=== PATIENT | male | born 1960 | race African-American/Black ===

== ENCOUNTER 2017-01-03 14:31 | Inpatient (IN) | payer OTHER ==
[2017-01-03 15:14] VITALS: BMI 32.5
--- NOTE | 2017-01-03 18:36 | HP ---
CIWA Score - CIWA Score Nausea/Vomitin-Mild Nausea/No Vomiting Muscle Tremors: 4-Moderate,w/Arms Extend Anxiety: 4-Mod. Anxious/Guarded Agitation: 4-Moderately Restless Paroxysmal Sweats: 1-Minimal Palms Moist Orientation: 0-Oriented Tacttile Disturbances: 0-None Auditory Disturbances: 0-None Visual Disturbances: 0-None Headache: 0-None Present CIWA-Ar Total Score: 14 Admission ROS BHS - HPI Chief Complaint: WITHDRAWAL SX Allergies/Adverse Reactions: Allergies Allergy/AdvReac Type Severity Reaction Status Date / Time No Known Allergies Allergy Verified 01/03/17 18:00 History of Present Illness: 56 YEARS OLD MALE WITH LONG HISTORY OF ALCOHOL COCAINE NICOTINE DEPENDENCE HAS HIV AND DEPRESSION IS ADMITTED TO REHAB Exam Limitations: No Limitations - Ebola screening Have you traveled outside of the country in the last 21 days: No Have you had contact with anyone from an Ebola affected area: No Have you been sick,other than usual withdrawal symptoms: No Do you have a fever: No - Review of Systems Constitutional: Chills, Changes in sleep, Weight Stable EENT: reports: No Symptoms Reported Respiratory: reports: No Symptoms reported Cardiac: reports: No Symptoms Reported GI: reports: Nausea, Poor Fluid Intake, Abdominal cramping : reports: No Symptoms Reported Integumentary: reports: No Symptoms Reported Neuro: reports: Tremors Endocrine: reports: No Symptoms Reported Hematology: reports: No Symptoms Reported Psychiatric: reports: Judgement Intact, Orientated x3, Depressed Other Systems: Reviewed and Negative Patient History - Patient Medical History Hx Anemia: No Hx Asthma: No Hx Chronic Obstructive Pulmonary Disease (COPD): No Hx Cancer: No Hx Cardiac Disorders: No Hx Congestive Heart Failure: No Hx Hypertension: No Hx Hypercholesterolemia: No HX Cerebrovascular Accident: No Hx Seizures: No Hx Diabetes: No Hx Gastrointestinal Disorders: No Hx Liver Disease: No Hx Genitourinary Disorders: No Hx Sexually Transmitted Disorders: No Hx Renal Disease (ESRD): No Hx Thyroid Disease: No Hx Human Immunodeficiency Virus (HIV): Yes (2004) Hx Depression: Yes Hx Suicide Attempt: No Hx Bipolar Disorder: No Hx Schizophrenia: No - Patient Surgical History Past Surgical History: No Hx Neurologic Surgery: No Hx Cataract Extraction: No Hx Cardiac Surgery: No Hx Lung Surgery: No Hx Breast Surgery: No Hx Breast Biopsy: No Hx Abdominal Surgery: No Hx Appendectomy: No Hx Cholecystectomy: No Hx Genitourinary Surgery: No Hx Orthopedic Surgery: No - PPD History Previous Implant?: Yes Documented Results: Negative w/o proof Implanted On Prior R Admission?: No PPD to be Administered?: Yes - Smoking Cessation Smoking history: Current every day smoker Have you smoked in the past 12 months: Yes Aproximately how many cigarettes per day: 10 Cigars Per Day: 0 Hx Chewing Tobacco Use: No Initiated information on smoking cessation: Yes 'Breaking Loose' booklet given: 01/03/17 - Substance & Tx. History Hx Alcohol Use: Yes Hx Substance Use: Yes Substance Use Type: Alcohol, Cocaine Hx Substance Use Treatment: No - Substances Abused Alcohol Route: Oral Frequency: Daily Amount used: LIQOUR- 2 PINTS, BEER- 2 SIX PACK Age of first use: 12 Date of Last Use: 01/03/17 Family Disease History - Family Disease History Family History: Denies Admission Physical Exam BHS - Vital Signs Vital Signs: Vital Signs - 24 hr 01/03/17 15:12 Temperature 98.0 F Pulse Rate 97 H Respiratory 18 Rate Blood Pressure 149/88 - Physical General Appearance: Yes: Appropriately Dressed, Mild Distress, Obese, Tremorous , Irritable, Sweating, Anxious HEENTM: Yes: Hearing grossly Normal, Normal ENT Inspection, Normocephalic, Normal Voice Respiratory: Yes: Chest Non-Tender, Lungs Clear, Normal Breath Sounds, No Respiratory Distress, No Accessory Muscle Use Neck: Yes: Supple, Trachea in good position Breast: Yes: Breasts Symetrical Cardiology: Yes: Regular Rhythm, S1, S2, Tachycardia Abdominal: Yes: Non Tender, Soft Genitourinary: Yes: Within Normal Limits Musculoskeletal: Yes: full range of Motion, Gait Steady Extremities: Yes: Normal Inspection, Normal Range of Motion, Non-Tender, Tremors Neurological: Yes: Fully Oriented, Alert, Motor Strength 5/5, Normal Response, Depressed Affect Integumentary: Yes: Normal Color, Warm Lymphatic: Yes: Within Normal Limits - Diagnostic (1) Alcohol dependence with uncomplicated withdrawal Current Visit: Yes Status: Acute (2) Cocaine dependence, uncomplicated Current Visit: Yes Status: Chronic (3) HIV (human immunodeficiency virus infection) Current Visit: Yes Status: Chronic Comment: 2005 (4) Nicotine dependence Current Visit: Yes Status: Acute Qualifiers: Nicotine product type: cigarettes Substance use status: in withdrawal Qualified Code(s): F17.213 - Nicotine dependence, cigarettes, with withdrawal (5) Depression (emotion) Current Visit: Yes Status: Suspected Qualifiers: Depression Type: dysthymia Qualified Code(s): F34.1 - Dysthymic disorder Cleared for Admission [facility] - Detox or Rehab [facility] Level of Care: Medically Managed Detox Regimen/Protocol: Librium S Breath Alcohol Content Breath Alcohol Content: 0 Urine Drug Screen - Results Drug Screen Negative: No Urine Drug Screen Results: SHAGUFTA-Cocaine
[2017-01-03] MEDS ORDERED: P-EPHED 60MG/TRIPROLIDI 2.5MG TABLET PO PRN (18:40)
[2017-01-03] MEDS ORDERED: guaiFENesin/D-METHORPHAN HB 10 ML UNIT-DOSE CUPS PO PRN (18:40)
[2017-01-03] MEDS ORDERED: hydrOXYzine PAMOATE 50 MG CAPSULE (FP) PO PRN (18:40)
[2017-01-03] MEDS ORDERED: MENTHOL/PHENOL 1 EACH UD MM PRN (18:40)
[2017-01-03] MEDS ORDERED: NICOTINE POLACRILEX 2 MG GUM BC PRN (18:40)
[2017-01-03] MEDS ORDERED: MAG HYDROX/AL HYDROX/SIMETH 30 ML UNIT-DOSE CUP PO PRN (18:40)
[2017-01-03] MEDS ORDERED: IBUPROFEN 400 MG TABLET (FP) PO PRN (18:40)
[2017-01-03] MEDS ORDERED: LOPERAMIDE HCL 2 MG CAPSULE PO PRN (18:40)
[2017-01-03] MEDS ORDERED: MAGNESIUM CITRATE 300 ML BOTTLE PO PRN (18:40)
[2017-01-03] MEDS ORDERED: chlordiazePOXIDE HCL 25 MG CAPSULE PO PRN (18:40)
[2017-01-03] MEDS ORDERED: MAGNESIUM HYDROX 2400MG/30ML ORAL SUSPENSION 30 ML CUP PO PRN (18:40)
[2017-01-03] MEDS ORDERED: diphenhydrAMINE HCL 50 MG CAPSULE PO PRN (18:40)
[2017-01-03] MEDS ORDERED: ACETAMINOPHEN 325 MG TABLET (FP) PO PRN (18:40)
[2017-01-03] MEDS: THIAMINE HCL 100 MG TABLET (FP) PO SCH (23:26)
[2017-01-03] MEDS: chlordiazePOXIDE HCL 25 MG CAPSULE PO SCH (23:26)
[2017-01-04] MEDS: chlordiazePOXIDE HCL 25 MG CAPSULE PO SCH ×4 (05:57→22:08)
[2017-01-04 07:55] LABS: URINE APPEARANCE CLEAR; URINE BILIRUBIN NEGATIVE (NEGATIVE); URINE BLOOD NEGATIVE (NEGATIVE); URINE COLOR YELLOW; URINE GLUCOSE (UA) NEGATIVE (NEGATIVE); URINE KETONE NEGATIVE (NEGATIVE); URINE LEUK ESTERASE NEGATIVE (NEGATIVE); URINE NITRITE NEGATIVE (NEGATIVE); URINE PROTEIN NEGATIVE (NEGATIVE); URINE UROBILINOGEN NEGATIVE E.U./dl (0.2-1.0)
--- NOTE | 2017-01-04 09:05 | PN ---
S CIWA - CIWA Score Nausea/Vomitin Muscle Tremors: 3 Anxiety: 3 Agitation: 2 Paroxysmal Sweats: 1-Minimal Palms Moist Orientation: 0-Oriented Tacttile Disturbances: 1-Very Mild Itch/Numbness Auditory Disturbances: 1-Very Mild Visual Disturbances: 1-Very Mild Sensitivity Headache: 2-Mild CIWA-Ar Total Score: 17 BHS Progress Note (SOAP) Subjective: ALERT,IRRITABLE,ANXIOUS,INTERRUPTED SLEEP,TREMOR Objective: 01/04/17 09:04 Vital Signs Temperature 97.7 F 01/04/17 06:05 Pulse Rate 62 01/04/17 06:05 Respiratory Rate 18 01/04/17 06:05 Blood Pressure 141/73 01/04/17 06:05 O2 Sat by Pulse Oximetry (%) EKG NSR WITH SINUS ARRHYTHMIA Laboratory Last Values Urine Color Yellow 01/03/17 20:30 Urine Appearance Clear 01/03/17 20:30 Urine pH 6.0 (5.0-8.0) 01/03/17 20:30 Urine Protein Negative (NEGATIVE) 01/03/17 20:30 Urine Glucose (UA) Negative (NEGATIVE) 01/03/17 20:30 Urine Ketones Negative (NEGATIVE) 01/03/17 20:30 Urine Blood Negative (NEGATIVE) 01/03/17 20:30 Urine Nitrite Negative (NEGATIVE) 01/03/17 20:30 Urine Bilirubin Negative (NEGATIVE) 01/03/17 20:30 Urine Urobilinogen Negative E.U./dl (0.2-1.0) 01/03/17 20:30 Ur Leukocyte Esterase Negative (NEGATIVE) 01/03/17 20:30 LABS PENDING Assessment: 01/04/17 09:05 WITHDRAWAL SYMPTOM Plan: CONTINUE DETOX
[2017-01-04 09:43] LABS: MCH 30.9 pg (25.7-33.7); MCHC 32.9 g/dl (32.0-35.9); MEAN CELL VOLUME 93.7 fl (80-96); MEAN PLT VOLUME 10.6 fl (7.5-11.1); PLATELET COUNT 128 K/MM3 (134-434); RDW 13.5 % (11.9-15.9); WHITE BLOOD COUNT 7.2 K/mm3 (4.0-10.0)
[2017-01-04] MEDS: PRENATAL VITAMINS W/ FOLIC ACID TABLET (FP) PO SCH (10:35)
[2017-01-04] MEDS: CITALOPRAM HYDROBROMIDE 20 MG TABLET (FP) PO SCH (10:35)
[2017-01-04] MEDS: NICOTINE 14 MG/24 HOURS TOPICAL PATCH TD SCH (10:35)
[2017-01-04 10:44] LABS: ALBUMIN 3.8 g/dl (3.4-5.0); ALK PHOS 120 U/L (45-117); ANION GAP 8 (8-16); BILIRUBIN,TOTAL 0.7 mg/dL (0.2-1.0); CALCIUM 9.2 mg/dL (8.5-10.1); CO2 29 mmol/L (21-32); CREATININE 1.1 mg/dL (0.7-1.3); GLUCOSE,RANDOM 91 mg/dL (74-106); SGOT/AST 52 U/L (15-37); SGPT/ALT 57 U/L (12-78); TOT PROT 7.7 g/dl (6.4-8.2)
--- NOTE | 2017-01-04 11:05 | CONSULT ---
[facility] Psychiatric Consult - Data Date of interview: 01/04/17 Admission source: [facility] Identifying data: This is 56 years old male with psychiatric hospitalization history intoxicated with;. Alcohol, Nicotine, Cocaine Substance Abuse History: Urine Drug Screen Results: SHAGUFTA-Cocaine. - Smoking Cessation. Smoking history: Current every day smoker. Have you smoked in the past 12 months: Yes. Aproximately how many cigarettes per day: 10. Cigars Per Day: 0. Hx Chewing Tobacco Use: No. Initiated information on smoking cessation : Yes. 'Breaking Loose' booklet given: 01/03/17. - Substance & Tx. History. Hx Alcohol Use: Yes. Hx Substance Use: Yes. Substance Use Type: Alcohol, Cocaine. Hx Substance Use Treatment: No. - Substances Abused. Alcohol. Route: Oral. Frequency: Daily. Amount used: LIQOUR- 2 PINTS, BEER- 2 SIX PACK. Age of first use: 12. Date of Last Use: 01/03/17 Medical History: HIV+ Psychiatric History: Patient rerports history of depression, reports most recent psychiatric admission on: 2017 at [facility]. Reports currently taking: Celexa 20mg poqd Physical/Sexual Abuse/Trauma History: Denies Additional Comment: Urine Drug Screen Results: SHAGUFTA-Cocaine. Celexa 20mg poqd Mental Status Exam - Mental Status Exam Alert and Oriented to: Person Cognitive Function: Fair Patient Appearance: Unkempt Mood: Sad Affect: Flat Patient Behavior: Sedated Speech Pattern: Delayed Voice Loudness: Mildly Soft/Quiet Thought Process: Circumstantial Thought Disorder: Being Controlled Hallucinations: Denies Suicidal Ideation: Denies Homicidal Ideation: Denies Insight/Judgement: Fair Sleep: Difficulty falling asleep Appetite: Weight loss Muscle strength/Tone: Mild Hypotonicity Gait/Station: Shuffling Additional Comments: Celexa 20mg poqd Psychiatric Findings - Problem List ([place] 1, 2,3) (1) Alcohol dependence with uncomplicated withdrawal Current Visit: Yes Status: Acute (2) Nicotine dependence Current Visit: Yes Status: Acute Qualifiers: Nicotine product type: cigarettes Substance use status: in withdrawal Qualified Code(s): F17.213 - Nicotine dependence, cigarettes, with withdrawal (3) Cocaine dependence, uncomplicated Current Visit: Yes Status: Chronic (4) Drug-induced mood disorder Current Visit: Yes Status: Acute - Initial Treatment Plan Initial Treatment Plan: Celexa 20mg poqd
[2017-01-04] MEDS: THIAMINE HCL 100 MG TABLET (FP) PO SCH (22:08)
[2017-01-05] MEDS: chlordiazePOXIDE HCL 25 MG CAPSULE PO SCH ×3 (05:28→17:55)
--- NOTE | 2017-01-05 09:42 | PN ---
S CIWA - CIWA Score Nausea/Vomitin Muscle Tremors: 3 Anxiety: 3 Agitation: 3 Paroxysmal Sweats: 1-Minimal Palms Moist Orientation: 0-Oriented Tacttile Disturbances: 1-Very Mild Itch/Numbness Auditory Disturbances: 1-Very Mild Visual Disturbances: 1-Very Mild Sensitivity Headache: 2-Mild CIWA-Ar Total Score: 18 S Progress Note (SOAP) Subjective: ALERT,IRRITABLE,ANXIOUS,INTERRUPTED SLEEP,TREMOR Objective: 01/05/17 09:41 Vital Signs Temperature 97.7 F 01/05/17 09:24 Pulse Rate 75 01/05/17 09:24 Respiratory Rate 16 01/05/17 09:24 Blood Pressure 129/87 01/05/17 09:24 O2 Sat by Pulse Oximetry (%) Laboratory Last Values WBC 7.2 K/mm3 (4.0-10.0) 01/04/17 06:00 RBC 4.34 M/mm3 (4.00-5.60) 01/04/17 06:00 Hgb 13.4 GM/dL (11.7-16.9) 01/04/17 06:00 Hct 40.7 % (35.4-49) 01/04/17 06:00 MCV 93.7 fl (80-96) 01/04/17 06:00 MCHC 32.9 g/dl (32.0-35.9) 01/04/17 06:00 RDW 13.5 % (11.9-15.9) 01/04/17 06:00 Plt Count 128 K/MM3 (134-434) L 01/04/17 06:00 MPV 10.6 fl (7.5-11.1) 01/04/17 06:00 Sodium 141 mmol/L (136-145) 01/04/17 06:00 Potassium 3.9 mmol/L (3.5-5.1) 01/04/17 06:00 Chloride 104 mmol/L (98-107) 01/04/17 06:00 Carbon Dioxide 29 mmol/L (21-32) 01/04/17 06:00 Anion Gap 8 (8-16) 01/04/17 06:00 BUN 11 mg/dL (7-18) 01/04/17 06:00 Creatinine 1.1 mg/dL (0.7-1.3) 01/04/17 06:00 Creat Clearance w eGFR > 60 (>60) 01/04/17 06:00 Random Glucose 91 mg/dL (74-106) 01/04/17 06:00 Calcium 9.2 mg/dL (8.5-10.1) 01/04/17 06:00 Total Bilirubin 0.7 mg/dL (0.2-1.0) 01/04/17 06:00 AST 52 U/L (15-37) H 01/04/17 06:00 ALT 57 U/L (12-78) 01/04/17 06:00 Alkaline Phosphatase 120 U/L (45-117) H 01/04/17 06:00 Total Protein 7.7 g/dl (6.4-8.2) 01/04/17 06:00 Albumin 3.8 g/dl (3.4-5.0) 01/04/17 06:00 Urine Color Yellow 01/03/17 20:30 Urine Appearance Clear 01/03/17 20:30 Urine pH 6.0 (5.0-8.0) 01/03/17 20:30 Ur Specific [place] 1.020 (1.005-1.025) 01/03/17 20:30 Urine Protein Negative (NEGATIVE) 01/03/17 20:30 Urine Glucose (UA) Negative (NEGATIVE) 01/03/17 20:30 Urine Ketones Negative (NEGATIVE) 01/03/17 20:30 Urine Blood Negative (NEGATIVE) 01/03/17 20:30 Urine Nitrite Negative (NEGATIVE) 01/03/17 20:30 Urine Bilirubin Negative (NEGATIVE) 01/03/17 20:30 Urine Urobilinogen Negative E.U./dl (0.2-1.0) 01/03/17 20:30 Ur Leukocyte Esterase Negative (NEGATIVE) 01/03/17 20:30 RPR Titer Nonreactive (NONREACTIVE) 01/04/17 06:00 Assessment: 01/05/17 09:41 WITHDRAWAL SYMPTOM Plan: CONTINUE DETOX
[2017-01-05] MEDS: PRENATAL VITAMINS W/ FOLIC ACID TABLET (FP) PO SCH (10:05)
[2017-01-05] MEDS: CITALOPRAM HYDROBROMIDE 20 MG TABLET (FP) PO SCH (10:05)
[2017-01-05] MEDS: NICOTINE 14 MG/24 HOURS TOPICAL PATCH TD SCH (10:06)
--- NOTE | 2017-01-05 15:51 | EKG ---
Test Reason : Blood Pressure : / mmHG Vent. Rate : 076 BPM Atrial Rate : 076 BPM P-R Int : 142 ms QRS Dur : 092 ms QT Int : 380 ms P-R-T Axes : 011 032 027 degrees QTc Int : 427 ms NORMAL SINUS RHYTHM WITH SINUS ARRHYTHMIA NORMAL ECG NO PREVIOUS ECGS AVAILABLE Confirmed by CHRISTIAN LONG MD ([id number]) on 01/05/2017 3:50:49 PM Referred By: Confirmed By:CHRISTIAN LONG MD
[2017-01-05] MEDS: THIAMINE HCL 100 MG TABLET (FP) PO SCH (22:30)
[2017-01-05] MEDS: chlordiazePOXIDE 5 MG CAPSULE PO SCH (22:30)
[2017-01-06] MEDS: chlordiazePOXIDE 5 MG CAPSULE PO SCH ×3 (05:51→17:10)
--- NOTE | 2017-01-06 09:17 | PN ---
S Progress Note (SOAP) Subjective: ALERT,IRRITABLE,ANXIOUS,INTERRUPTED SLEEP, Objective: 01/06/17 09:16 Vital Signs Temperature 97.9 F 01/06/17 06:00 Pulse Rate 63 01/06/17 06:00 Respiratory Rate 20 01/06/17 06:00 Blood Pressure 143/81 01/06/17 06:00 O2 Sat by Pulse Oximetry (%) Assessment: 01/06/17 09:16 WITHDRAWAL SYMPTOM Plan: CONTINUE DETOX,DISCHARGE IN AM
[2017-01-06] MEDS: CITALOPRAM HYDROBROMIDE 20 MG TABLET (FP) PO SCH (10:37)
[2017-01-06] MEDS: PRENATAL VITAMINS W/ FOLIC ACID TABLET (FP) PO SCH (10:37)
[2017-01-06] MEDS: NICOTINE 14 MG/24 HOURS TOPICAL PATCH TD SCH (10:37)
[2017-01-06] MEDS: chlordiazePOXIDE HCL 10 MG CAPSULE PO SCH (22:29)
[2017-01-06] MEDS: THIAMINE HCL 100 MG TABLET (FP) PO SCH (22:29)
[2017-01-07] MEDS: chlordiazePOXIDE HCL 10 MG CAPSULE PO SCH (05:57)
--- NOTE | 2017-01-07 08:47 | DS ---
[facility] Detox Discharge Summary Admission Date: 01/03/17 Discharge Date: 01/07/17 - History Present History: Alcohol Dependence, Sedative Dependence Additional Comments: FOLLOW UP WITH AFTER CARE PROGRAM ARRANGEMENT Pertinent Past History: HIV NICOTINE DEPENDENCE - Physical Exam Results Vital Signs: Vital Signs Temperature 97.4 F L 01/07/17 06:00 Pulse Rate 65 01/07/17 06:00 Respiratory Rate 18 01/07/17 06:00 Blood Pressure 132/61 01/07/17 06:00 O2 Sat by Pulse Oximetry (%) Pertinent Admission Physical Exam Findings: WITHDRAWAL SYMPTOM - Treatment Hospital Course: Detox Protocol Followed, Detoxed Safely, Responded well, Discharged Condition Good, Rehab Referral Accepted Patient has Accepted a Rehab Referral to: [facility] - Medication Discharge Medications: Ambulatory Orders Citalopram Hydrobromide [Celexa -] 20 mg PO DAILY 01/03/17 Elviteg/Jadyn/Emtric/Tenofo Ala [Genvoya Tablet] 1 each PO DAILY 01/03/17 - AMA Did Patient Leave Against Medical Advice: No
[2017-01-07 10:10] VITALS: BP 145/76; PULSE 59; TEMP 97.3
== END 2017-01-07 09:45 | disposition home or self-care (01) | DRG 774 ==
LOC: YASAS 14:31 → Y6N 18:04
PROVIDERS: ADMIT Internal Medicine; ATTEND Internal Medicine
PROC: HZ2ZZZZ Detoxification Services for Substance Abuse Treatment (ICD-10-PCS; principal; 2017-01-07)
DX: F10.230 Alcohol dependence with withdrawal, uncomplicated (principal); F14.20 Cocaine dependence, uncomplicated; F17.210 Nicotine dependence, cigarettes, uncomplicated; F19.24 Other psychoactive substance dependence with psychoactive substance-induced mood disorder; Z21 Asymptomatic human immunodeficiency virus [HIV] infection status
CPT/HCPCS: 36415; 80053; 81003; 85027; 86593; 93005; 93010

== ENCOUNTER 2017-05-31 15:19 | Inpatient (IN) | payer OTHER ==
[2017-05-31 18:10] VITALS: BMI 34.0
--- NOTE | 2017-05-31 20:28 | HP ---
CIWA Score - CIWA Score Nausea/Vomitin-Mild Nausea/No Vomiting Muscle Tremors: 3 Anxiety: 4-Mod. Anxious/Guarded Agitation: 3 Paroxysmal Sweats: 1-Minimal Palms Moist Orientation: 1-Uncertain about Date Tacttile Disturbances: 0-None Auditory Disturbances: 0-None Visual Disturbances: 0-None Headache: 1-Very Mild CIWA-Ar Total Score: 14 Admission ROS BHS - HPI Chief Complaint: withdrawal sx Allergies/Adverse Reactions: Allergies Allergy/AdvReac Type Severity Reaction Status Date / Time No Known Allergies Allergy Verified 01/03/17 18:00 History of Present Illness: 56 years old male with long history of alcohol nicotine cocaine dependence has hiv and depression is admitted to detox Exam Limitations: No Limitations - Ebola screening Have you traveled outside of the country in the last 21 days: No (N) Have you had contact with anyone from an Ebola affected area: No Have you been sick,other than usual withdrawal symptoms: No Do you have a fever: No - Review of Systems Constitutional: Changes in sleep, Weight Stable EENT: reports: No Symptoms Reported Respiratory: reports: Productive cough (white) Cardiac: reports: No Symptoms Reported GI: reports: Poor Fluid Intake, Abdominal cramping : reports: No Symptoms Reported Musculoskeletal: reports: No Symptoms Reported Integumentary: reports: No Symptoms Reported Neuro: reports: Tremors Endocrine: reports: No Symptoms Reported Hematology: reports: No Symptoms Reported Psychiatric: reports: Judgement Intact, Anxious, Depressed Other Systems: Reviewed and Negative Patient History - Patient Medical History Hx Anemia: No Hx Asthma: No Hx Chronic Obstructive Pulmonary Disease (COPD): No Hx Cancer: No Hx Cardiac Disorders: No Hx Congestive Heart Failure: No Hx Hypertension: No Hx Hypercholesterolemia: No Hx Pacemaker: No HX Cerebrovascular Accident: No Hx Seizures: No Hx Dementia: No Hx Diabetes: No Hx Gastrointestinal Disorders: No Hx Liver Disease: No Hx Genitourinary Disorders: No Hx Sexually Transmitted Disorders: No Hx Renal Disease (ESRD): No Hx Thyroid Disease: No Hx Human Immunodeficiency Virus (HIV): Yes (2004) Hx Hepatitis C: No Hx Depression: Yes Hx Suicide Attempt: No Hx Bipolar Disorder: No Hx Schizophrenia: No - Patient Surgical History Past Surgical History: No Hx Neurologic Surgery: No Hx Cataract Extraction: No Hx Cardiac Surgery: No Hx Lung Surgery: No Hx Breast Surgery: No Hx Breast Biopsy: No Hx Abdominal Surgery: No Hx Appendectomy: No Hx Cholecystectomy: No Hx Genitourinary Surgery: No Hx Orthopedic Surgery: No - PPD History Previous Implant?: Yes Documented Results: Negative w/proof Implanted On Prior [facility] Admission?: Yes Date: 01/05/17 PPD to be Administered?: No - Smoking Cessation Smoking history: Current every day smoker Have you smoked in the past 12 months: Yes Aproximately how many cigarettes per day: 10 Cigars Per Day: 0 Hx Chewing Tobacco Use: No Initiated information on smoking cessation: Yes 'Breaking Loose' booklet given: 05/31/17 - Substance & Tx. History Hx Alcohol Use: Yes Hx Substance Use: Yes Substance Use Type: Alcohol, Cocaine Hx Substance Use Treatment: Yes (12/2016 [facility] - Substances Abused Alcohol Route: Oral Frequency: Daily Amount used: pint vodka Age of first use: 15 Date of Last Use: 05/31/17 Family Disease History - Family Disease History Family Disease History: Other: Mother () Admission Physical Exam S - Vital Signs Vital Signs: Vital Signs - 24 hr 05/31/17 18:03 Temperature 96.8 F L Pulse Rate 120 H Respiratory 18 Rate Blood Pressure 166/77 - Physical General Appearance: Yes: Appropriately Dressed, Mild Distress, Obese, Tremorous , Irritable, Sweating, Anxious HEENTM: Yes: Hearing grossly Normal, Normal ENT Inspection, Normocephalic, Normal Voice Respiratory: Yes: Chest Non-Tender, No Respiratory Distress, No Accessory Muscle Use, Hyperresonant Neck: Yes: Supple, Trachea in good position Breast: Yes: Breasts Symetrical Cardiology: Yes: Regular Rhythm, S1, S2, Tachycardia (cocaine) Abdominal: Yes: Normal Bowel Sounds, Non Tender, Soft Genitourinary: Yes: Within Normal Limits Back: Yes: Normal Inspection Musculoskeletal: Yes: full range of Motion, Gait Steady Extremities: Yes: Normal Inspection, Normal Range of Motion, Non-Tender, Tremors Neurological: Yes: Alert, Motor Strength 5/5, Normal Response, Depressed Affect Integumentary: Yes: Warm Lymphatic: Yes: Within Normal Limits - Diagnostic (1) Alcohol dependence with uncomplicated withdrawal Current Visit: Yes Status: Acute (2) Nicotine dependence Current Visit: Yes Status: Acute Qualifiers: Nicotine product type: cigarettes Substance use status: in withdrawal Qualified Code(s): F17.213 - Nicotine dependence, cigarettes, with withdrawal (3) Cocaine dependence, uncomplicated Current Visit: Yes Status: Chronic (4) HIV (human immunodeficiency virus infection) Current Visit: Yes Status: Chronic Comment: 2004 patient dose not have his medication upon admission with (5) Depression (emotion) Current Visit: Yes Status: Suspected Qualifiers: Depression Type: dysthymia Qualified Code(s): F34.1 - Dysthymic disorder Cleared for Admission [facility] - Detox or Rehab [facility] Level of Care: Medically Managed Detox Regimen/Protocol: Librium [facility] Breath Alcohol Content Breath Alcohol Content: 0 Urine Drug Screen - Results Drug Screen Negative: No Urine Drug Screen Results: SHAGUFTA-Cocaine
[2017-05-31] MEDS ORDERED: MENTHOL/PHENOL 1 EACH UD MM PRN (20:29)
[2017-05-31] MEDS ORDERED: P-EPHED 60MG/TRIPROLIDI 2.5MG TABLET PO PRN (20:29)
[2017-05-31] MEDS ORDERED: NICOTINE POLACRILEX 2 MG GUM BC PRN (20:29)
[2017-05-31] MEDS ORDERED: guaiFENesin/D-METHORPHAN HB 10 ML UNIT-DOSE CUPS PO PRN (20:29)
[2017-05-31] MEDS ORDERED: ACETAMINOPHEN 325 MG TABLET (FP) PO PRN (20:29)
[2017-05-31] MEDS ORDERED: MAGNESIUM HYDROX 2400MG/30ML ORAL SUSPENSION 30 ML CUP PO PRN (20:29)
[2017-05-31] MEDS ORDERED: MAGNESIUM CITRATE 300 ML BOTTLE PO PRN (20:29)
[2017-05-31] MEDS ORDERED: IBUPROFEN 400 MG TABLET (FP) PO PRN (20:29)
[2017-05-31] MEDS ORDERED: LOPERAMIDE HCL 2 MG CAPSULE PO PRN (20:29)
[2017-05-31] MEDS ORDERED: MAG HYDROX/AL HYDROX/SIMETH 30 ML UNIT-DOSE CUP PO PRN (20:29)
[2017-05-31] MEDS ORDERED: chlordiazePOXIDE HCL 25 MG CAPSULE PO PRN (20:29)
[2017-05-31] MEDS: cloNIDine HCL 0.1 MG TABLET PO PRN (23:23)
[2017-05-31] MEDS: THIAMINE HCL 100 MG TABLET (FP) PO SCH (23:24)
[2017-05-31] MEDS: chlordiazePOXIDE HCL 25 MG CAPSULE PO SCH (23:24)
[2017-06-01] MEDS: chlordiazePOXIDE HCL 25 MG CAPSULE PO SCH ×4 (06:00→23:27)
[2017-06-01 10:22] LABS: MCH 29.3 pg (25.7-33.7); MCHC 33.2 g/dl (32.0-35.9); MEAN CELL VOLUME 88.1 fl (80-96); MEAN PLT VOLUME 9.4 fl (7.5-11.1); PLATELET COUNT 116 K/MM3 (134-434); RDW 12.4 % (11.9-15.9); WHITE BLOOD COUNT 7.1 K/mm3 (4.0-10.0)
[2017-06-01] MEDS: PRENATAL VITAMINS W/ FOLIC ACID TABLET (FP) PO SCH (10:23)
[2017-06-01] MEDS: NICOTINE 14 MG/24 HOURS TOPICAL PATCH TD SCH (10:23)
[2017-06-01] MEDS: cloNIDine HCL 0.1 MG TABLET PO PRN (10:23)
[2017-06-01 11:09] LABS: ALBUMIN 3.3 g/dl (3.4-5.0); ALK PHOS 89 U/L (45-117); ANION GAP 13 (8-16); BILIRUBIN,TOTAL 0.6 mg/dL (0.2-1.0); CALCIUM 8.5 mg/dL (8.5-10.1); CO2 23 mmol/L (21-32); CREATININE 0.9 mg/dL (0.7-1.3); GLUCOSE,RANDOM 102 mg/dL (74-106); SGOT/AST 49 U/L (15-37); SGPT/ALT 75 U/L (12-78); TOT PROT 6.7 g/dl (6.4-8.2)
--- NOTE | 2017-06-01 12:28 | PN ---
S CIWA - CIWA Score Nausea/Vomitin Muscle Tremors: 3 Anxiety: 3 Agitation: 3 Paroxysmal Sweats: 1-Minimal Palms Moist Orientation: 0-Oriented Tacttile Disturbances: 1-Very Mild Itch/Numbness Auditory Disturbances: 1-Very Mild Visual Disturbances: 0-None Headache: 2-Mild CIWA-Ar Total Score: 17 BHS Progress Note (SOAP) Subjective: ALERT,IRRITABLE,ANXIOUS,INTERRUPTED SLEEP,TREMOR, Objective: 06/01/17 12:26 Vital Signs Temperature 98.1 F 06/01/17 10:42 Pulse Rate 89 06/01/17 10:42 Respiratory Rate 16 06/01/17 10:42 Blood Pressure 116/70 06/01/17 10:42 O2 Sat by Pulse Oximetry (%) EKGSINUS TACHYCARDIA 104/MIN NO CHEST PAIN,NO SOB,NO DIZZINESS 06/01/17 12:27 Laboratory Last Values WBC 7.1 K/mm3 (4.0-10.0) 06/01/17 08:15 RBC 4.43 M/mm3 (4.00-5.60) 06/01/17 08:15 Hgb 13.0 GM/dL (11.7-16.9) 06/01/17 08:15 Hct 39.1 % (35.4-49) 06/01/17 08:15 MCV 88.1 fl (80-96) 06/01/17 08:15 MCH 29.3 pg (25.7-33.7) 06/01/17 08:15 MCHC 33.2 g/dl (32.0-35.9) 06/01/17 08:15 RDW 12.4 % (11.9-15.9) 06/01/17 08:15 Plt Count 116 K/MM3 (134-434) L 06/01/17 08:15 MPV 9.4 fl (7.5-11.1) D 06/01/17 08:15 Sodium 140 mmol/L (136-145) 06/01/17 08:15 Potassium 3.8 mmol/L (3.5-5.1) 06/01/17 08:15 Chloride 104 mmol/L (98-107) 06/01/17 08:15 Carbon Dioxide 23 mmol/L (21-32) D 06/01/17 08:15 Anion Gap 13 (8-16) 06/01/17 08:15 BUN 12 mg/dL (7-18) 06/01/17 08:15 Creatinine 0.9 mg/dL (0.7-1.3) 06/01/17 08:15 Creat Clearance w eGFR > 60 (>60) 06/01/17 08:15 Random Glucose 102 mg/dL (74-106) 06/01/17 08:15 Calcium 8.5 mg/dL (8.5-10.1) 06/01/17 08:15 Total Bilirubin 0.6 mg/dL (0.2-1.0) 06/01/17 08:15 AST 49 U/L (15-37) H 06/01/17 08:15 ALT 75 U/L (12-78) D 06/01/17 08:15 Alkaline Phosphatase 89 U/L (45-117) D 06/01/17 08:15 Total Protein 6.7 g/dl (6.4-8.2) 06/01/17 08:15 Albumin 3.3 g/dl (3.4-5.0) L 06/01/17 08:15 RPR Titer Nonreactive (NONREACTIVE) 06/01/17 07:00 Assessment: 06/01/17 12:27 WITHDRAWAL SYMPTOM Plan: CONTINUE DETOX
--- NOTE | 2017-06-01 12:39 | EKG ---
Test Reason : Blood Pressure : / mmHG Vent. Rate : 104 BPM Atrial Rate : 104 BPM P-R Int : 142 ms QRS Dur : 090 ms QT Int : 370 ms P-R-T Axes : 005 022 022 degrees QTc Int : 486 ms SINUS TACHYCARDIA OTHERWISE NORMAL ECG WHEN COMPARED WITH ECG OF 03-JAN-2017 19:44, QT HAS LENGTHENED Confirmed by CHRISTIAN LONG MD ([id number]) on 06/01/2017 12:38:49 PM Referred By: Confirmed By:CHRISTIAN LONG MD
[2017-06-01] MEDS: THIAMINE HCL 100 MG TABLET (FP) PO SCH (23:27)
[2017-06-02] MEDS: chlordiazePOXIDE HCL 25 MG CAPSULE PO SCH ×3 (06:09→17:48)
--- NOTE | 2017-06-02 10:18 | PN ---
S CIWA - CIWA Score Nausea/Vomitin Muscle Tremors: 2 Anxiety: 2 Agitation: 1-Slight > Activity Paroxysmal Sweats: 3 Orientation: 0-Oriented Tacttile Disturbances: 1-Very Mild Itch/Numbness Auditory Disturbances: 0-None Visual Disturbances: 0-None Headache: 0-None Present CIWA-Ar Total Score: 11 BHS Progress Note (SOAP) Subjective: sweats otherwise feeling better Objective: 06/02/17 10:16 Vital Signs Temperature 97 F L 06/02/17 06:06 Pulse Rate 73 06/02/17 06:06 Respiratory Rate 18 06/02/17 06:06 Blood Pressure 150/77 06/02/17 06:06 O2 Sat by Pulse Oximetry (%) Laboratory Tests 06/01/17 06/01/17 06/01/17 07:00 08:15 08:15 WBC 7.1 RBC 4.43 Hgb 13.0 Hct 39.1 MCV 88.1 MCH 29.3 MCHC 33.2 RDW 12.4 Plt Count 116 L MPV 9.4 D Sodium 140 Potassium 3.8 Chloride 104 Carbon Dioxide 23 D Anion Gap 13 BUN 12 Creatinine 0.9 Creat Clearance w eGFR > 60 Random Glucose 102 Calcium 8.5 Total Bilirubin 0.6 AST 49 H ALT 75 D Alkaline Phosphatase 89 D Total Protein 6.7 Albumin 3.3 L RPR Titer Nonreactive pt aox3 in nad ambulating Assessment: 06/02/17 10:17 withdrawal sx's Plan: cont. detox increase fluids
[2017-06-02] MEDS: NICOTINE 14 MG/24 HOURS TOPICAL PATCH TD SCH (11:17)
[2017-06-02] MEDS: PRENATAL VITAMINS W/ FOLIC ACID TABLET (FP) PO SCH (11:17)
[2017-06-02 14:29] LABS: URINE APPEARANCE CLEAR; URINE BILIRUBIN NEGATIVE (NEGATIVE); URINE BLOOD NEGATIVE (NEGATIVE); URINE COLOR LTYELLOW; URINE GLUCOSE (UA) NEGATIVE (NEGATIVE); URINE KETONE NEGATIVE (NEGATIVE); URINE NITRITE NEGATIVE (NEGATIVE); URINE PROTEIN NEGATIVE (NEGATIVE); URINE UROBILINOGEN NEGATIVE mg/dL (0.2-1.0)
[2017-06-02 19:50] LABS: URINE LEUK ESTERASE Negative (NEGATIVE)
[2017-06-02] MEDS: chlordiazePOXIDE 5 MG CAPSULE PO SCH (22:30)
[2017-06-02] MEDS: THIAMINE HCL 100 MG TABLET (FP) PO SCH (22:32)
[2017-06-03] MEDS: chlordiazePOXIDE 5 MG CAPSULE PO SCH ×3 (05:12→17:51)
[2017-06-03] MEDS: NICOTINE 14 MG/24 HOURS TOPICAL PATCH TD SCH (10:24)
[2017-06-03] MEDS: PRENATAL VITAMINS W/ FOLIC ACID TABLET (FP) PO SCH (10:24)
--- NOTE | 2017-06-03 15:41 | PN ---
BHS Progress Note (SOAP) Subjective: Sweating,interrupted sleep,restless Objective: 06/03/17 15:40 Vital Signs - 8 hr 06/03/17 06/03/17 10:00 14:15 Temperature 97.7 F 97.7 F Pulse Rate 102 H 101 H Respiratory 18 18 Rate Blood Pressure 133/79 108/87 Laboratory Tests 06/01/17 06/01/17 06/01/17 07:00 08:15 08:15 WBC 7.1 RBC 4.43 Hgb 13.0 Hct 39.1 MCV 88.1 MCH 29.3 MCHC 33.2 RDW 12.4 Plt Count 116 L MPV 9.4 D Sodium 140 Potassium 3.8 Chloride 104 Carbon Dioxide 23 D Anion Gap 13 BUN 12 Creatinine 0.9 Creat Clearance w eGFR > 60 Random Glucose 102 Calcium 8.5 Total Bilirubin 0.6 AST 49 H ALT 75 D Alkaline Phosphatase 89 D Total Protein 6.7 Albumin 3.3 L Urine Color Urine Appearance Urine pH Ur Specific [place] Urine Protein Urine Glucose (UA) Urine Ketones Urine Blood Urine Nitrite Urine Bilirubin Urine Urobilinogen Ur Leukocyte Esterase RPR Titer Nonreactive 06/02/17 10:00 WBC RBC Hgb Hct MCV MCH MCHC RDW Plt Count MPV Sodium Potassium Chloride Carbon Dioxide Anion Gap BUN Creatinine Creat Clearance w eGFR Random Glucose Calcium Total Bilirubin AST ALT Alkaline Phosphatase Total Protein Albumin Urine Color Ltyellow Urine Appearance Clear Urine pH 7.0 Ur Specific [place] 1.009 Urine Protein Negative Urine Glucose (UA) Negative Urine Ketones Negative Urine Blood Negative Urine Nitrite Negative Urine Bilirubin Negative Urine Urobilinogen Negative Ur Leukocyte Esterase Negative RPR Titer labs noted Assessment: 06/03/17 15:40 Withdrawal sx. Plan: Continue detox
[2017-06-04] MEDS: chlordiazePOXIDE HCL 10 MG CAPSULE PO SCH ×2 (00:04→07:28)
[2017-06-04] MEDS: THIAMINE HCL 100 MG TABLET (FP) PO SCH (00:05)
[2017-06-04 06:33] VITALS: BP 128/85; PULSE 80; TEMP 97.2
--- NOTE | 2017-06-04 14:06 | DS ---
[facility] Detox Discharge Summary Admission Date: 05/31/17 Discharge Date: 06/04/17 - History Present History: Alcohol Dependence, Cocaine Dependence Pertinent Past History: HIV infection - Physical Exam Results Vital Signs: Vital Signs Temperature 97.2 F L 06/04/17 06:00 Pulse Rate 80 06/04/17 06:00 Respiratory Rate 18 06/04/17 06:00 Blood Pressure 128/85 06/04/17 06:00 O2 Sat by Pulse Oximetry (%) Pertinent Admission Physical Exam Findings: Withdrawal sx. Laboratory Last Values WBC 7.1 K/mm3 (4.0-10.0) 06/01/17 08:15 RBC 4.43 M/mm3 (4.00-5.60) 06/01/17 08:15 Hgb 13.0 GM/dL (11.7-16.9) 06/01/17 08:15 Hct 39.1 % (35.4-49) 06/01/17 08:15 MCV 88.1 fl (80-96) 06/01/17 08:15 MCH 29.3 pg (25.7-33.7) 06/01/17 08:15 MCHC 33.2 g/dl (32.0-35.9) 06/01/17 08:15 RDW 12.4 % (11.9-15.9) 06/01/17 08:15 Plt Count 116 K/MM3 (134-434) L 06/01/17 08:15 MPV 9.4 fl (7.5-11.1) D 06/01/17 08:15 Sodium 140 mmol/L (136-145) 06/01/17 08:15 Potassium 3.8 mmol/L (3.5-5.1) 06/01/17 08:15 Chloride 104 mmol/L (98-107) 06/01/17 08:15 Carbon Dioxide 23 mmol/L (21-32) D 06/01/17 08:15 Anion Gap 13 (8-16) 06/01/17 08:15 BUN 12 mg/dL (7-18) 06/01/17 08:15 Creatinine 0.9 mg/dL (0.7-1.3) 06/01/17 08:15 Creat Clearance w eGFR > 60 (>60) 06/01/17 08:15 Random Glucose 102 mg/dL (74-106) 06/01/17 08:15 Calcium 8.5 mg/dL (8.5-10.1) 06/01/17 08:15 Total Bilirubin 0.6 mg/dL (0.2-1.0) 06/01/17 08:15 AST 49 U/L (15-37) H 06/01/17 08:15 ALT 75 U/L (12-78) D 06/01/17 08:15 Alkaline Phosphatase 89 U/L (45-117) D 06/01/17 08:15 Total Protein 6.7 g/dl (6.4-8.2) 06/01/17 08:15 Albumin 3.3 g/dl (3.4-5.0) L 06/01/17 08:15 Urine Color Ltyellow 06/02/17 10:00 Urine Appearance Clear 06/02/17 10:00 Urine pH 7.0 (5.0-8.0) 06/02/17 10:00 Ur Specific [place] 1.009 (1.001-1.035) 06/02/17 10:00 Urine Protein Negative (NEGATIVE) 06/02/17 10:00 Urine Glucose (UA) Negative (NEGATIVE) 06/02/17 10:00 Urine Ketones Negative (NEGATIVE) 06/02/17 10:00 Urine Blood Negative (NEGATIVE) 06/02/17 10:00 Urine Nitrite Negative (NEGATIVE) 06/02/17 10:00 Urine Bilirubin Negative (NEGATIVE) 06/02/17 10:00 Urine Urobilinogen Negative mg/dL (0.2-1.0) 06/02/17 10:00 Ur Leukocyte Esterase Negative (NEGATIVE) 06/02/17 10:00 RPR Titer Nonreactive (NONREACTIVE) 06/01/17 07:00 labs noted - Treatment Hospital Course: Detox Protocol Followed, Detoxed Safely, Responded well, Discharged Condition Good, Rehab Referral Accepted Patient has Accepted a Rehab Referral to: [facility] in [place] - Medication Discharge Medications: Ambulatory Orders Elviteg/Cob/Emtri/Tenof Alafen [Genvoya (Non-Formulary)] 1 each PO DAILY Citalopram Hydrobromide [Celexa -] 30 mg PO DAILY 05/31/17 - Diagnosis (1) Alcohol dependence with uncomplicated withdrawal Status: Acute (2) Cocaine dependence, uncomplicated Status: Chronic (3) Drug-induced mood disorder Status: Acute (4) Nicotine dependence Status: Acute Qualifiers: Nicotine product type: cigarettes Substance use status: in withdrawal Qualified Code(s): F17.213 - Nicotine dependence, cigarettes, with withdrawal (5) HIV (human immunodeficiency virus infection) Status: Chronic - AMA Did Patient Leave Against Medical Advice: No
== END 2017-06-04 09:04 | disposition home or self-care (01) | DRG 774 ==
LOC: YASAS 15:19 → Y6N 22:48
PROVIDERS: ADMIT Internal Medicine; ATTEND Internal Medicine
PROC: HZ2ZZZZ Detoxification Services for Substance Abuse Treatment (ICD-10-PCS; principal; 2017-05-31)
DX: F10.230 Alcohol dependence with withdrawal, uncomplicated (principal); F14.20 Cocaine dependence, uncomplicated; F17.213 Nicotine dependence, cigarettes, with withdrawal; F19.24 Other psychoactive substance dependence with psychoactive substance-induced mood disorder; F34.1 Dysthymic disorder; Z21 Asymptomatic human immunodeficiency virus [HIV] infection status
CPT/HCPCS: 36415; 80053; 81003; 85027; 86593; 93005; 93010

== ENCOUNTER 2017-11-07 11:19 | Inpatient (IN) | payer OTHER ==
[2017-11-07 11:48] VITALS: BMI 34.2
--- NOTE | 2017-11-07 14:10 | HP ---
CIWA Score - CIWA Score Nausea/Vomitin Muscle Tremors: 3 Anxiety: 3 Agitation: 3 Paroxysmal Sweats: 2 Orientation: 0-Oriented Tacttile Disturbances: 2-Mild Itch/Numbness/Burn Auditory Disturbances: 2-Mild Harshness/Frighten Visual Disturbances: 2-Mild Sensitivity Headache: 2-Mild CIWA-Ar Total Score: 22 Admission ROS BHS - HPI Chief Complaint: i need help to stop drinking alcohol and cocaine Allergies/Adverse Reactions: Allergies Allergy/AdvReac Type Severity Reaction Status Date / Time No Known Allergies Allergy Verified 11/07/17 13:33 History of Present Illness: this 56 years old male with alcohol and cocaine dependence,seeking detox, withdrawal symptom,last detox 05/31/17 to 06/04/17 weight loss Exam Limitations: No Limitations - Ebola screening Have you traveled outside of the country in the last 21 days: No Have you had contact with anyone from an Ebola affected area: No Have you been sick,other than usual withdrawal symptoms: No Do you have a fever: No - Review of Systems Constitutional: Chills, Diaphoresis, Loss of Appetite, Malaise, Night Sweats, Changes in sleep, Weakness, Unintentional Wgt. Loss EENT: reports: Nose Congestion Respiratory: reports: No Symptoms reported Cardiac: reports: No Symptoms Reported GI: reports: Diarrhea, Nausea, Vomiting, Abdominal cramping : reports: No Symptoms Reported Musculoskeletal: reports: Back Pain, Muscle Pain Integumentary: reports: Dryness Endocrine: reports: No Symptoms Reported Hematology: reports: No Symptoms Reported Psychiatric: reports: No Sypmtoms Reported, Judgement Intact, Mood/Affect Appropiate, Orientated x3, Anxious, Depressed Patient History - Patient Medical History Hx Anemia: No Hx Asthma: No Hx Chronic Obstructive Pulmonary Disease (COPD): No Hx Cancer: No Hx Cardiac Disorders: No Hx Congestive Heart Failure: No Hx Hypertension: No Hx Hypercholesterolemia: No Hx Pacemaker: No HX Cerebrovascular Accident: No Hx Seizures: No Hx Dementia: No Hx Diabetes: No Hx Gastrointestinal Disorders: No Hx Liver Disease: No Hx Genitourinary Disorders: No Hx Sexually Transmitted Disorders: Yes (HIV) Hx Renal Disease (ESRD): No Hx Thyroid Disease: No Hx Human Immunodeficiency Virus (HIV): Yes (2004) Hx Hepatitis C: No Hx Depression: Yes Hx Suicide Attempt: No Hx Bipolar Disorder: No Hx Schizophrenia: No Other Medical History: no suicidal,no homicidal - Patient Surgical History Past Surgical History: No Hx Neurologic Surgery: No Hx Cataract Extraction: No Hx Cardiac Surgery: No Hx Lung Surgery: No Hx Breast Surgery: No Hx Breast Biopsy: No Hx Abdominal Surgery: No Hx Appendectomy: No Hx Cholecystectomy: No Hx Genitourinary Surgery: No Hx Section: No Hx Orthopedic Surgery: No Anesthesia Reaction: No - PPD History Previous Implant?: Yes Documented Results: Negative w/proof Implanted On Prior [facility] Admission?: Yes Date: 01/05/17 Results: 0MM PPD to be Administered?: No - Smoking Cessation Smoking history: Current every day smoker Have you smoked in the past 12 months: Yes Aproximately how many cigarettes per day: 10 Cigars Per Day: 0 Hx Chewing Tobacco Use: No Initiated information on smoking cessation: Yes 'Breaking Loose' booklet given: 11/07/17 - Substance & Tx. History Hx Alcohol Use: Yes Hx Substance Use: Yes Substance Use Type: Alcohol, Cocaine Hx Substance Use Treatment: Yes ([facility] 05/31/17 to 06/04/17) - Substances Abused Cocaine Frequency: 1-2 times per week Amount used: $30 Age of first use: 27 Date of Last Use: 11/05/17 etoh Route: Oral Frequency: Daily Amount used: 3-6pk Beer 16oz , 1 pint-Jennifer Age of first use: 15 Date of Last Use: 11/07/17 Family Disease History - Family Disease History Family Disease History: [place]: Mother (,brain tumor), Other: Mother Admission Physical Exam [facility] - Vital Signs Vital Signs: Vital Signs - 24 hr 11/07/17 11:46 Temperature 96.6 F L Pulse Rate 92 H Respiratory 19 Rate Blood Pressure 128/75 - Physical General Appearance: Yes: Moderate Distress, Tremorous, Irritable, Sweating, Anxious HEENTM: Yes: Normal ENT Inspection, [place], Pharynx Normal Respiratory: Yes: Lungs Clear, Normal Breath Sounds, No Respiratory Distress Neck: Yes: Within Normal Limits, Supple, Trachea in good position Breast: Yes: Within Normal Limits Cardiology: Yes: Within Normal Limits, Regular Rhythm, Regular Rate, S1, S2 Abdominal: Yes: Within Normal Limits, Normal Bowel Sounds, Non Tender, Flat, Soft Genitourinary: Yes: Within Normal Limits Back: Yes: Within Normal Limits, Normal Inspection, Muscle Spasm Musculoskeletal: Yes: Within Normal Limits, Back pain, Muscle Pain Extremities: Yes: Within Normal Limits, Normal Range of Motion, Tremors Neurological: Yes: machine set up II-XII NML intact, Fully Oriented, Alert, Motor Strength 5/5 Integumentary: Yes: Within Normal Limits, Dry Lymphatic: Yes: Within Normal Limits - Diagnostic (1) Alcohol dependence with uncomplicated withdrawal Current Visit: No Status: Acute (2) Nicotine dependence Current Visit: No Status: Acute Qualifiers: Nicotine product type: cigarettes Substance use status: in withdrawal Qualified Code(s): F17.213 - Nicotine dependence, cigarettes, with withdrawal (3) Cocaine dependence, uncomplicated Current Visit: No Status: Chronic (4) HIV (human immunodeficiency virus infection) Current Visit: No Status: Chronic Comment: 2004 patient dose not have his medication upon admission with [facility] Breath Alcohol Content Breath Alcohol Content: 0 Urine Drug Screen - Results Drug Screen Negative: No Urine Drug Screen Results: SHAGUFTA-Cocaine
[2017-11-07] MEDS ORDERED: LOPERAMIDE HCL 2 MG CAPSULE PO PRN (14:26)
[2017-11-07] MEDS ORDERED: IBUPROFEN 400 MG TABLET (FP) PO PRN (14:26)
[2017-11-07] MEDS ORDERED: MAGNESIUM CITRATE 300 ML BOTTLE PO PRN (14:26)
[2017-11-07] MEDS ORDERED: guaiFENesin/D-METHORPHAN HB 10 ML UNIT-DOSE CUPS PO PRN (14:26)
[2017-11-07] MEDS ORDERED: MAG HYDROX/AL HYDROX/SIMETH 30 ML UNIT-DOSE CUP PO PRN (14:26)
[2017-11-07] MEDS ORDERED: ACETAMINOPHEN 325 MG TABLET (FP) PO PRN (14:26)
[2017-11-07] MEDS ORDERED: P-EPHED 60MG/TRIPROLIDI 2.5MG TABLET PO PRN (14:26)
[2017-11-07] MEDS ORDERED: MENTHOL/PHENOL 1 EACH UD MM PRN (14:26)
[2017-11-07] MEDS ORDERED: MAGNESIUM HYDROX 2400MG/30ML ORAL SUSPENSION 30 ML CUP PO PRN (14:26)
[2017-11-07] MEDS ORDERED: hydrOXYzine PAMOATE 25 MG CAPSULE (FP) PO PRN (14:26)
[2017-11-07] MEDS ORDERED: chlordiazePOXIDE HCL 25 MG CAPSULE PO PRN (14:26)
[2017-11-07] MEDS ORDERED: chlordiazePOXIDE HCL 25 MG CAPSULE PO ONE (14:45)
[2017-11-07] MEDS: chlordiazePOXIDE HCL 25 MG CAPSULE PO SCH ×2 (18:16→22:56)
[2017-11-07 18:51] LABS: URINE APPEARANCE CLEAR; URINE BILIRUBIN NEGATIVE (<2.0 mg/dL); URINE BLOOD NEGATIVE (NEGATIVE); URINE COLOR YELLOW; URINE GLUCOSE (UA) NEGATIVE (NEGATIVE); URINE KETONE NEGATIVE (NEGATIVE); URINE LEUK ESTERASE NEGATIVE (NEGATIVE); URINE NITRITE NEGATIVE (NEGATIVE); URINE PROTEIN NEGATIVE (NEGATIVE); URINE UROBILINOGEN NEGATIVE mg/dL (0.2-1.0)
[2017-11-07] MEDS ORDERED: MELATONIN 5 MG TABLETS PO PRN (22:00)
[2017-11-07] MEDS: THIAMINE HCL 100 MG TABLET (FP) PO SCH (22:56)
[2017-11-08] MEDS: chlordiazePOXIDE HCL 25 MG CAPSULE PO SCH ×4 (05:16→22:49)
[2017-11-08] MEDS ORDERED: PATIENT'S OWN MEDICATION (NON-FORMULARY) (Elviteg/Cob/Emtri/Tenof Alafen 1 EACH) PO SCH (08:00)
[2017-11-08 09:56] LABS: HEMATOCRIT 38.8 % (35.4-49); HEMOGLOBIN 12.5 GM/dL (11.7-16.9); MCH 28.3 pg (25.7-33.7); MCHC 32.2 g/dl (32.0-35.9); MEAN CELL VOLUME 87.8 fl (80-96); PLATELET COUNT 150 K/MM3 (134-434); RBC 4.42 M/mm3 (4.00-5.60); RDW 15.5 % (11.9-15.9); WHITE BLOOD COUNT 6.9 K/mm3 (4.0-10.0)
[2017-11-08] MEDS: PRENATAL VITAMINS W/ FOLIC ACID TABLET (FP) PO SCH (10:29)
[2017-11-08 10:32] LABS: CHLORIDE 103 mmol/L (98-107); POTASSIUM 3.6 mmol/L (3.5-5.1); SODIUM 137 mmol/L (136-145)
[2017-11-08 10:47] LABS: ALBUMIN 3.8 g/dl (3.4-5.0); ALK PHOS 102 U/L (45-117); ANION GAP 7 (8-16); BILIRUBIN,TOTAL 0.6 mg/dL (0.2-1.0); BLOOD UREA NITROGEN 11 mg/dL (7-18); CALCIUM 8.8 mg/dL (8.5-10.1); CO2 27 mmol/L (21-32); CREATININE 1.1 mg/dL (0.7-1.3); GLUCOSE,RANDOM 145 mg/dL (74-106); SGOT/AST 44 U/L (15-37); SGPT/ALT 60 U/L (12-78); TOT PROT 7.9 g/dl (6.4-8.2)
--- NOTE | 2017-11-08 11:50 | PN ---
S CIWA - CIWA Score Nausea/Vomitin-No Nausea/No Vomiting Muscle Tremors: 4-Moderate,w/Arms Extend Anxiety: 4-Mod. Anxious/Guarded Agitation: 4-Moderately Restless Paroxysmal Sweats: 1-Minimal Palms Moist Orientation: 0-Oriented Tacttile Disturbances: 0-None Auditory Disturbances: 0-None Visual Disturbances: 0-None Headache: 0-None Present CIWA-Ar Total Score: 13 BHS Progress Note (SOAP) Subjective: ANXIETY,SLIGHT TREMORS, RESTLESSNESS,INTERMITTENT SLEEP. Objective: 11/08/17 11:50 Vital Signs Temperature 98.2 F 11/08/17 10:17 Pulse Rate 81 11/08/17 10:17 Respiratory Rate 20 11/08/17 10:17 Blood Pressure 122/77 11/08/17 10:17 O2 Sat by Pulse Oximetry (%) Laboratory Tests 11/07/17 11/08/17 11/08/17 18:00 06:00 06:00 WBC 6.9 RBC 4.42 Hgb 12.5 Hct 38.8 MCV 87.8 MCH 28.3 MCHC 32.2 RDW 15.5 D Plt Count 150 D MPV 11.0 D Sodium 137 Potassium 3.6 Chloride 103 Carbon Dioxide 27 Anion Gap 7 L BUN 11 Creatinine 1.1 D Creat Clearance w eGFR > 60 Random Glucose 145 H D Calcium 8.8 Total Bilirubin 0.6 AST 44 H ALT 60 Alkaline Phosphatase 102 Total Protein 7.9 Albumin 3.8 Urine Color Yellow Urine Appearance Clear Urine pH 7.0 Ur Specific [place] 1.016 Urine Protein Negative Urine Glucose (UA) Negative Urine Ketones Negative Urine Blood Negative Urine Nitrite Negative Urine Bilirubin Negative Urine Urobilinogen Negative Ur Leukocyte Esterase Negative RPR Titer 11/08/17 06:00 WBC RBC Hgb Hct MCV MCH MCHC RDW Plt Count MPV Sodium Potassium Chloride Carbon Dioxide Anion Gap BUN Creatinine Creat Clearance w eGFR Random Glucose Calcium Total Bilirubin AST ALT Alkaline Phosphatase Total Protein Albumin Urine Color Urine Appearance Urine pH Ur Specific [place] Urine Protein Urine Glucose (UA) Urine Ketones Urine Blood Urine Nitrite Urine Bilirubin Urine Urobilinogen Ur Leukocyte Esterase RPR Titer Nonreactive Assessment: 11/08/17 11:50 WITHDRAWAL SX Plan: CONTINUE DETOX
--- NOTE | 2017-11-08 11:58 | CONSULT ---
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 Substance Abuse History: Confirmed by patient in this interview.Details in current [facility] report as follows : Smoking history: Current every day smoker. Have you smoked in the past 12 months: Yes. Aproximately how many cigarettes per day: 10. Cigars Per Day: 0. Hx Chewing Tobacco Use: No. Initiated information on smoking cessation: Yes. 'Breaking Loose' booklet given: . - Substance & Tx. History. Hx Alcohol Use: Yes. Hx Substance Use: Yes. Substance Use Type: Alcohol, Cocaine. Hx Substance Use Treatment: Yes ([facility] to 06/04/17). - Substances Abused. Cocaine. Frequency: 1-2 times per week. Amount used: $30. Age of first use: 27. Date of Last Use: . etoh. Route: Oral. Frequency: Daily. Amount used: 3-6pk Beer 16oz , 1 pint-Jennifer. Age of first use: 15. Date of Last Use: 11/07/17 Medical History: HIV infection since 2004. Psychiatric History: Patient admits to a history of three psychiatric hospitalizations (all at [facility]).Diagnosed with MDD.Prescribed celexa 30 mg/day.Mr Horta gets his OPD psychiatric care at [facility] in [place].Patient denies history of suicide attempts. Physical/Sexual Abuse/Trauma History: Patient denies. Additional Comment: Urine Drug Screen Results: SHAGUFTA-Cocaine.Noted. Mental Status Exam - Mental Status Exam Alert and Oriented to: Time, Place, Person Cognitive Function: Good Patient Appearance: Unkempt, Disheveled Mood: Nervous, Anxious, Irritable Affect: Mood Congruent Patient Behavior: Fatigued, Appropriate, Cooperative Speech Pattern: Clear, Appropriate Voice Loudness: Normal Thought Process: Intact, Goal Oriented Thought Disorder: Not Present Hallucinations: Denies Suicidal Ideation: Denies Homicidal Ideation: Denies Insight/Judgement: Poor Sleep: Well Appetite: Good Muscle strength/Tone: Normal Gait/Station: Normal Psychiatric Findings - Problem List ([place] 1, 2,3) (1) Alcohol dependence with uncomplicated withdrawal Current Visit: Yes Status: Acute (2) Cocaine dependence, uncomplicated Current Visit: Yes Status: Acute (3) Nicotine dependence Current Visit: Yes Status: Acute Qualifiers: Nicotine product type: cigarettes Substance use status: in withdrawal Qualified Code(s): F17.213 - Nicotine dependence, cigarettes, with withdrawal (4) Drug-induced mood disorder Current Visit: Yes Status: Acute (5) Depressive disorder Current Visit: Yes Status: Chronic Comment: As per self-report.On medication.Current OPD care at [facility]. - Initial Treatment Plan Initial Treatment Plan: Psychoeducation.Detoxification in progress.Celexa 30 mg po daily.Side effects/benefits discussed with the patient,which includes information about risk of sexual dysfunction and suicidal ideation.No history of adverse effects according to patient.Consent (verbal) given for this medication.Observation.
[2017-11-08] MEDS: CITALOPRAM HYDROBROMIDE 10 MG TABLET (FP) PO SCH (12:48)
[2017-11-08] MEDS: THIAMINE HCL 100 MG TABLET (FP) PO SCH (22:49)
[2017-11-08] MEDS: PATIENT'S OWN MEDICATION (NON-FORMULARY) (Elviteg/Cob/Emtri/Tenof Alafen 1 EACH) PO SCH (22:52)
[2017-11-09] MEDS: chlordiazePOXIDE HCL 25 MG CAPSULE PO SCH ×2 (05:34→10:36)
[2017-11-09] MEDS: CITALOPRAM HYDROBROMIDE 10 MG TABLET (FP) PO SCH (10:33)
[2017-11-09] MEDS: PRENATAL VITAMINS W/ FOLIC ACID TABLET (FP) PO SCH (10:33)
--- NOTE | 2017-11-09 12:51 | PN ---
[facility] CIWA - CIWA Score Nausea/Vomitin-No Nausea/No Vomiting Muscle Tremors: 4-Moderate,w/Arms Extend Anxiety: 4-Mod. Anxious/Guarded Agitation: 4-Moderately Restless Paroxysmal Sweats: 1-Minimal Palms Moist Orientation: 0-Oriented Tacttile Disturbances: 3-Moderate Itch/Numb/Burn Auditory Disturbances: 0-None Visual Disturbances: 0-None Headache: 0-None Present CIWA-Ar Total Score: 16 BHS Progress Note (SOAP) Subjective: ANXIETY,SWEATS,RUNNY NOSE, SNEEZING. Objective: 11/09/17 12:55 Vital Signs Temperature 96.9 F L 11/09/17 09:27 Pulse Rate 81 11/09/17 09:27 Respiratory Rate 18 11/09/17 09:27 Blood Pressure 114/62 11/09/17 09:27 O2 Sat by Pulse Oximetry (%) Laboratory Last Values WBC 6.9 K/mm3 (4.0-10.0) 11/08/17 06:00 RBC 4.42 M/mm3 (4.00-5.60) 11/08/17 06:00 Hgb 12.5 GM/dL (11.7-16.9) 11/08/17 06:00 Hct 38.8 % (35.4-49) 11/08/17 06:00 MCV 87.8 fl (80-96) 11/08/17 06:00 MCH 28.3 pg (25.7-33.7) 11/08/17 06:00 MCHC 32.2 g/dl (32.0-35.9) 11/08/17 06:00 RDW 15.5 % (11.9-15.9) D 11/08/17 06:00 Plt Count 150 K/MM3 (134-434) D 11/08/17 06:00 MPV 11.0 fl (7.5-11.1) D 11/08/17 06:00 Sodium 137 mmol/L (136-145) 11/08/17 06:00 Potassium 3.6 mmol/L (3.5-5.1) 11/08/17 06:00 Chloride 103 mmol/L (98-107) 11/08/17 06:00 Carbon Dioxide 27 mmol/L (21-32) 11/08/17 06:00 Anion Gap 7 (8-16) L 11/08/17 06:00 BUN 11 mg/dL (7-18) 11/08/17 06:00 Creatinine 1.1 mg/dL (0.7-1.3) D 11/08/17 06:00 Creat Clearance w eGFR > 60 (>60) 11/08/17 06:00 Random Glucose 145 mg/dL (74-106) H D 11/08/17 06:00 Calcium 8.8 mg/dL (8.5-10.1) 11/08/17 06:00 Total Bilirubin 0.6 mg/dL (0.2-1.0) 11/08/17 06:00 AST 44 U/L (15-37) H 11/08/17 06:00 ALT 60 U/L (12-78) 11/08/17 06:00 Alkaline Phosphatase 102 U/L (45-117) 11/08/17 06:00 Total Protein 7.9 g/dl (6.4-8.2) 11/08/17 06:00 Albumin 3.8 g/dl (3.4-5.0) 11/08/17 06:00 Urine Color Yellow 11/07/17 18:00 Urine Appearance Clear 11/07/17 18:00 Urine pH 7.0 (5.0-8.0) 11/07/17 18:00 Ur Specific [place] 1.016 (1.001-1.035) 11/07/17 18:00 Urine Protein Negative (NEGATIVE) 11/07/17 18:00 Urine Glucose (UA) Negative (NEGATIVE) 11/07/17 18:00 Urine Ketones Negative (NEGATIVE) 11/07/17 18:00 Urine Blood Negative (NEGATIVE) 11/07/17 18:00 Urine Nitrite Negative (NEGATIVE) 11/07/17 18:00 Urine Bilirubin Negative (<2.0 mg/dL) 11/07/17 18:00 Urine Urobilinogen Negative mg/dL (0.2-1.0) 11/07/17 18:00 Ur Leukocyte Esterase Negative (NEGATIVE) 11/07/17 18:00 RPR Titer Nonreactive (NONREACTIVE) 11/08/17 06:00 Assessment: 11/09/17 12:55 WITHDRAWAL SX Plan: CONTINUE DETOX ACTIFED PRN
[2017-11-09] MEDS: chlordiazePOXIDE 5 MG CAPSULE PO SCH ×2 (17:35→22:23)
[2017-11-09] MEDS: THIAMINE HCL 100 MG TABLET (FP) PO SCH (22:23)
[2017-11-09] MEDS: PATIENT'S OWN MEDICATION (NON-FORMULARY) (Elviteg/Cob/Emtri/Tenof Alafen 1 EACH) PO SCH (22:23)
[2017-11-10] MEDS: chlordiazePOXIDE 5 MG CAPSULE PO SCH ×2 (06:52→10:24)
[2017-11-10] MEDS: PRENATAL VITAMINS W/ FOLIC ACID TABLET (FP) PO SCH (10:23)
[2017-11-10] MEDS: CITALOPRAM HYDROBROMIDE 10 MG TABLET (FP) PO SCH (10:23)
--- NOTE | 2017-11-10 11:28 | PN ---
BHS Progress Note (SOAP) Subjective: C/O TREMORS, HEADACHE,FATIGUE. Objective: 11/10/17 11:27 Vital Signs Temperature 97.9 F 11/10/17 09:10 Pulse Rate 84 11/10/17 09:10 Respiratory Rate 18 11/10/17 09:10 Blood Pressure 124/86 11/10/17 09:10 O2 Sat by Pulse Oximetry (%) Laboratory Last Values WBC 6.9 K/mm3 (4.0-10.0) 11/08/17 06:00 RBC 4.42 M/mm3 (4.00-5.60) 11/08/17 06:00 Hgb 12.5 GM/dL (11.7-16.9) 11/08/17 06:00 Hct 38.8 % (35.4-49) 11/08/17 06:00 MCV 87.8 fl (80-96) 11/08/17 06:00 MCH 28.3 pg (25.7-33.7) 11/08/17 06:00 MCHC 32.2 g/dl (32.0-35.9) 11/08/17 06:00 RDW 15.5 % (11.9-15.9) D 11/08/17 06:00 Plt Count 150 K/MM3 (134-434) D 11/08/17 06:00 MPV 11.0 fl (7.5-11.1) D 11/08/17 06:00 Sodium 137 mmol/L (136-145) 11/08/17 06:00 Potassium 3.6 mmol/L (3.5-5.1) 11/08/17 06:00 Chloride 103 mmol/L (98-107) 11/08/17 06:00 Carbon Dioxide 27 mmol/L (21-32) 11/08/17 06:00 Anion Gap 7 (8-16) L 11/08/17 06:00 BUN 11 mg/dL (7-18) 11/08/17 06:00 Creatinine 1.1 mg/dL (0.7-1.3) D 11/08/17 06:00 Creat Clearance w eGFR > 60 (>60) 11/08/17 06:00 Random Glucose 145 mg/dL (74-106) H D 11/08/17 06:00 Calcium 8.8 mg/dL (8.5-10.1) 11/08/17 06:00 Total Bilirubin 0.6 mg/dL (0.2-1.0) 11/08/17 06:00 AST 44 U/L (15-37) H 11/08/17 06:00 ALT 60 U/L (12-78) 11/08/17 06:00 Alkaline Phosphatase 102 U/L (45-117) 11/08/17 06:00 Total Protein 7.9 g/dl (6.4-8.2) 11/08/17 06:00 Albumin 3.8 g/dl (3.4-5.0) 11/08/17 06:00 Urine Color Yellow 11/07/17 18:00 Urine Appearance Clear 11/07/17 18:00 Urine pH 7.0 (5.0-8.0) 11/07/17 18:00 Ur Specific [place] 1.016 (1.001-1.035) 11/07/17 18:00 Urine Protein Negative (NEGATIVE) 11/07/17 18:00 Urine Glucose (UA) Negative (NEGATIVE) 11/07/17 18:00 Urine Ketones Negative (NEGATIVE) 11/07/17 18:00 Urine Blood Negative (NEGATIVE) 11/07/17 18:00 Urine Nitrite Negative (NEGATIVE) 11/07/17 18:00 Urine Bilirubin Negative (<2.0 mg/dL) 11/07/17 18:00 Urine Urobilinogen Negative mg/dL (0.2-1.0) 11/07/17 18:00 Ur Leukocyte Esterase Negative (NEGATIVE) 11/07/17 18:00 RPR Titer Nonreactive (NONREACTIVE) 11/08/17 06:00 Assessment: 11/10/17 11:27 WITHDRAWAL SX Plan: CONTINUE DETOX
[2017-11-10] MEDS: chlordiazePOXIDE HCL 10 MG CAPSULE PO SCH ×2 (17:02→22:47)
[2017-11-10] MEDS: PATIENT'S OWN MEDICATION (NON-FORMULARY) (Elviteg/Cob/Emtri/Tenof Alafen 1 EACH) PO SCH (22:47)
[2017-11-10] MEDS: THIAMINE HCL 100 MG TABLET (FP) PO SCH (22:47)
[2017-11-11] MEDS: chlordiazePOXIDE HCL 10 MG CAPSULE PO SCH (06:00)
[2017-11-11 06:27] VITALS: BP 113/62; PULSE 73; TEMP 97.1
--- NOTE | 2017-11-11 21:50 | PN ---
BHS Progress Note (SOAP) Subjective: Patient denies current Detox symptoms and reports that he feels well overall. Objective: PATIENT A & O X 3, OBSERVED AMBULATING ON UNIT. NO ACUTE DISTRESS. 11/11/17 21:48 Vital Signs Temperature 97.1 F L 11/11/17 06:27 Pulse Rate 73 11/11/17 06:27 Respiratory Rate 18 11/11/17 06:27 Blood Pressure 113/62 11/11/17 06:27 O2 Sat by Pulse Oximetry (%) Laboratory Tests 11/07/17 11/08/17 11/08/17 18:00 06:00 06:00 WBC 6.9 RBC 4.42 Hgb 12.5 Hct 38.8 MCV 87.8 MCH 28.3 MCHC 32.2 RDW 15.5 D Plt Count 150 D MPV 11.0 D Sodium 137 Potassium 3.6 Chloride 103 Carbon Dioxide 27 Anion Gap 7 L BUN 11 Creatinine 1.1 D Creat Clearance w eGFR > 60 Random Glucose 145 H D Calcium 8.8 Total Bilirubin 0.6 AST 44 H ALT 60 Alkaline Phosphatase 102 Total Protein 7.9 Albumin 3.8 Urine Color Yellow Urine Appearance Clear Urine pH 7.0 Ur Specific [place] 1.016 Urine Protein Negative Urine Glucose (UA) Negative Urine Ketones Negative Urine Blood Negative Urine Nitrite Negative Urine Bilirubin Negative Urine Urobilinogen Negative Ur Leukocyte Esterase Negative RPR Titer 11/08/17 06:00 WBC RBC Hgb Hct MCV MCH MCHC RDW Plt Count MPV Sodium Potassium Chloride Carbon Dioxide Anion Gap BUN Creatinine Creat Clearance w eGFR Random Glucose Calcium Total Bilirubin AST ALT Alkaline Phosphatase Total Protein Albumin Urine Color Urine Appearance Urine pH Ur Specific [place] Urine Protein Urine Glucose (UA) Urine Ketones Urine Blood Urine Nitrite Urine Bilirubin Urine Urobilinogen Ur Leukocyte Esterase RPR Titer Nonreactive LABS NOTED. Assessment: 11/11/17 21:49 COMPLETION OF DETOX REGIMEN. Plan: PATIENT SCHEDULED FOR DISCHARGE FROM DETOX UNIT TODAY.
--- NOTE | 2017-11-11 21:54 | DS ---
[facility] Detox Discharge Summary Admission Date: 11/07/17 Discharge Date: 11/11/17 - History Present History: Alcohol Dependence, Cocaine Dependence Additional Comments: PATIENT WILL RETURN TO [facility] OUTPATIENT PRO[facility] FOR AFTERCARE. PATIENT WAS DISCHARGED FROM DETOX UNIT IN STABLE MEDICAL CONDITION. Pertinent Past History: Depression, HIV, Nicotine Dependence. - Physical Exam Results Vital Signs: Vital Signs Temperature 97.1 F L 11/11/17 06:27 Pulse Rate 73 11/11/17 06:27 Respiratory Rate 18 11/11/17 06:27 Blood Pressure 113/62 11/11/17 06:27 O2 Sat by Pulse Oximetry (%) Pertinent Admission Physical Exam Findings: WITHDRAWAL SYMPTOMS. Laboratory Tests 11/07/17 11/08/17 11/08/17 18:00 06:00 06:00 WBC 6.9 RBC 4.42 Hgb 12.5 Hct 38.8 MCV 87.8 MCH 28.3 MCHC 32.2 RDW 15.5 D Plt Count 150 D MPV 11.0 D Sodium 137 Potassium 3.6 Chloride 103 Carbon Dioxide 27 Anion Gap 7 L BUN 11 Creatinine 1.1 D Creat Clearance w eGFR > 60 Random Glucose 145 H D Calcium 8.8 Total Bilirubin 0.6 AST 44 H ALT 60 Alkaline Phosphatase 102 Total Protein 7.9 Albumin 3.8 Urine Color Yellow Urine Appearance Clear Urine pH 7.0 Ur Specific [place] 1.016 Urine Protein Negative Urine Glucose (UA) Negative Urine Ketones Negative Urine Blood Negative Urine Nitrite Negative Urine Bilirubin Negative Urine Urobilinogen Negative Ur Leukocyte Esterase Negative RPR Titer 11/08/17 06:00 WBC RBC Hgb Hct MCV MCH MCHC RDW Plt Count MPV Sodium Potassium Chloride Carbon Dioxide Anion Gap BUN Creatinine Creat Clearance w eGFR Random Glucose Calcium Total Bilirubin AST ALT Alkaline Phosphatase Total Protein Albumin Urine Color Urine Appearance Urine pH Ur Specific [place] Urine Protein Urine Glucose (UA) Urine Ketones Urine Blood Urine Nitrite Urine Bilirubin Urine Urobilinogen Ur Leukocyte Esterase RPR Titer Nonreactive LABS NOTED. - Treatment Hospital Course: Detox Protocol Followed, Detoxed Safely, Responded well, Discharged Condition Good Patient has Accepted a Rehab Referral to: PATIENT RETURNING TO [facility] OUT[facility]IENT [facility]. - Medication Discharge Medications: Ambulatory Orders Elviteg/Cob/Emtri/Tenof Alafen [Genvoya (Non-Formulary)] 1 each PO DAILY Citalopram Hydrobromide [Celexa -] 30 mg PO DAILY 05/31/17 Citalopram Hydrobromide [Celexa -] 30 mg PO DAILY #60 tablet 11/10/17 - Diagnosis (1) Alcohol dependence with uncomplicated withdrawal Status: Acute (2) Cocaine dependence, uncomplicated Status: Acute (3) Drug-induced mood disorder Status: Acute (4) Nicotine dependence Status: Acute Qualifiers: Nicotine product type: cigarettes Substance use status: in withdrawal Qualified Code(s): F17.213 - Nicotine dependence, cigarettes, with withdrawal (5) Depressive disorder Status: Chronic (6) HIV (human immunodeficiency virus infection) Status: Chronic - AMA Did Patient Leave Against Medical Advice: No
== END 2017-11-11 09:10 | disposition home or self-care (01) | DRG 774 ==
LOC: YASAS 11:19 → Y3N 14:31
PROVIDERS: ADMIT Internal Medicine; ATTEND Internal Medicine
PROC: HZ2ZZZZ Detoxification Services for Substance Abuse Treatment (ICD-10-PCS; principal; 2017-11-07)
DX: F10.230 Alcohol dependence with withdrawal, uncomplicated (principal); F14.20 Cocaine dependence, uncomplicated; F17.213 Nicotine dependence, cigarettes, with withdrawal; F19.24 Other psychoactive substance dependence with psychoactive substance-induced mood disorder; F32.9 Major depressive disorder, single episode, unspecified; Z21 Asymptomatic human immunodeficiency virus [HIV] infection status
CPT/HCPCS: 36415; 80053; 81003; 85027; 86593

== ENCOUNTER 2017-11-13 10:37 | Inpatient (IN) | payer OTHER ==
[2017-11-13 11:32] VITALS: BMI 34.2
--- NOTE | 2017-11-13 16:40 | HP ---
Admission [facility] Chief Complaint: Patient presents for rehab services for ETOH/Cocaine dependence. Allergies/Adverse Reactions: Allergies Allergy/AdvReac Type Severity Reaction Status Date / Time No Known Allergies Allergy Verified 11/07/17 13:33 History of Present Illness: Patient presents for Rehab services for ETOH/Cocaine dependence. Recently completed detox here at [facility] and discharged 11/11/17. Started drinking at age 15 and drinks up to 1-2 6 packs daily. Started using cocaine at age 27 and uses up to 2 bags every 2 weeks. 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 Last use of cocaine last week. Denies having seizures from ETOH use/withdrawal. Has PMH of depression and anxiety. Denies SI/HI and suicide attempts. - Ebola screening Have you traveled outside of the country in the last 21 days: No Have you had contact with anyone from an Ebola affected area: No Have you been sick,other than usual withdrawal symptoms: No Do you have a fever: No - Review of Systems Constitutional: Changes in sleep, Unexplained wgt Loss EENT: reports: Nose Congestion Respiratory: reports: No Symptoms reported Cardiac: reports: No Symptoms Reported GI: reports: Poor Fluid Intake : reports: No Symptoms Reported Musculoskeletal: reports: No Symptoms Reported Integumentary: reports: Flushing, Sweating Endocrine: reports: No Symptoms Reported Hematology: reports: No Symptoms Reported Psychiatric: reports: Orientated x3, Anxious, Depressed Patient History - Patient Medical History Hx Anemia: No Hx Asthma: No Hx Chronic Obstructive Pulmonary Disease (COPD): No Hx Cancer: No Hx Cardiac Disorders: No Hx Congestive Heart Failure: No Hx Hypertension: No Hx Hypercholesterolemia: No Hx Pacemaker: No HX Cerebrovascular Accident: No Hx Seizures: No Hx Dementia: No Hx Diabetes: No Hx Gastrointestinal Disorders: No Hx Liver Disease: No Hx Genitourinary Disorders: No Hx Sexually Transmitted Disorders: Yes (HIV) Hx Renal Disease (ESRD): No Hx Thyroid Disease: No Hx Human Immunodeficiency Virus (HIV): Yes (2004) Hx Hepatitis C: No Hx Depression: Yes Hx Suicide Attempt: No Hx Bipolar Disorder: No Hx Schizophrenia: No - Patient Surgical History Past Surgical History: No Hx Neurologic Surgery: No Hx Cataract Extraction: No Hx Cardiac Surgery: No Hx Lung Surgery: No Hx Breast Surgery: No Hx Breast Biopsy: No Hx Abdominal Surgery: No Hx Appendectomy: No Hx Cholecystectomy: No Hx Genitourinary Surgery: No Hx Section: No Hx Orthopedic Surgery: No Anesthesia Reaction: No - PPD History Date: 11/06/17 Results: 0MM PPD to be Administered?: No - Smoking Cessation Smoking history: Current every day smoker Have you smoked in the past 12 months: Yes Aproximately how many cigarettes per day: 10 Cigars Per Day: 0 Hx Chewing Tobacco Use: No Initiated information on smoking cessation: Yes 'Breaking Loose' booklet given: 11/13/17 - Substance & Tx. History Hx Alcohol Use: Yes Hx Substance Use: Yes Substance Use Type: Alcohol, Cocaine - Substances Abused Alcohol Route: Oral Frequency: Daily Amount used: 12 beers Age of first use: 15 Date of Last Use: 11/11/17 Cocaine Route: Smoking Frequency: 1-2 times per week Amount used: 2 bags Age of first use: 27 Date of Last Use: 11/06/17 Family Disease History - Family Disease History Family Disease History: CA: Mother (,brain tumor), Other: Mother Admission Physical Exam [facility] - Vital Signs Vital Signs: Vital Signs - 24 hr 11/13/17 11:30 Temperature 96.9 F L Pulse Rate 103 H Respiratory 20 Rate Blood Pressure 162/91 - Physical General Appearance: Yes: Disheveled, Alcohol on Breath, Sweating, Anxious HEENTM: Yes: Within Normal Limits, EOMI, Hearing grossly Normal, Normal ENT Inspection, Normocephalic, Normal Voice, [place], Pharynx Normal Respiratory: Yes: Chest Non-Tender, Lungs Clear, Normal Breath Sounds, No Respiratory Distress, No Accessory Muscle Use Neck: Yes: No masses,lesions,Nodules, Supple, Trachea in good position Breast: Yes: Breast Exam Deferred Cardiology: Yes: Regular Rhythm, Regular Rate, S1, S2 Abdominal: Yes: Normal Bowel Sounds, Non Tender, Soft Genitourinary: Yes: Within Normal Limits Back: Yes: Within Normal Limits Musculoskeletal: Yes: Within Normal Limits, Gait Steady Extremities: Yes: Within Normal Limits, Normal Range of Motion, Non-Tender, Tremors 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, Fully Oriented, Alert, Motor Strength 5/5, Depressed Affect Integumentary: Yes: Warm, Erythema, Moist Lymphatic: Yes: Within Normal Limits - Diagnostic (1) Alcohol dependence Current Visit: Yes Status: Chronic Qualifiers: Substance use status: uncomplicated Qualified Code(s): F10.20 - Alcohol dependence, uncomplicated (2) Cocaine dependence, uncomplicated Current Visit: No Status: Chronic (3) HIV (human immunodeficiency virus infection) Current Visit: No Status: Chronic Comment: 2004 patient dose not have his medication upon admission with (4) Depression (emotion) Current Visit: No Status: Chronic Qualifiers: Depression Type: unspecified Qualified Code(s): F32.9 - Major depressive disorder, single episode, unspecified Cleared for Admission [facility] - Detox or Rehab Claeared for Rehab Admission: Yes [facility] Breath Alcohol Content Breath Alcohol Content: 0.041 Urine Drug Screen - Results Drug Screen Negative: No Urine Drug Screen Results: SHAGUFTA-Cocaine, BZO-Benzodiazepines Inpatient Rehab Admission - Initial Determination Are CD services needed?: Yes Free of communicable disease: Yes Not in need of hospitalization: Yes - Rehab Admission Criteria Previous failed treatment: Yes Poor recovery environment: Yes Comorbidities: Yes Lacks judgement: Yes Patient is meeting Inpatient Rehab admission criteria:: Yes
[2017-11-13] MEDS ORDERED: IBUPROFEN 400 MG TABLET (FP) PO PRN (16:52)
[2017-11-13] MEDS ORDERED: LOPERAMIDE HCL 2 MG CAPSULE PO PRN (16:52)
[2017-11-13] MEDS ORDERED: MAG HYDROX/AL HYDROX/SIMETH 30 ML UNIT-DOSE CUP PO PRN (16:52)
[2017-11-13] MEDS ORDERED: P-EPHED 60MG/TRIPROLIDI 2.5MG TABLET PO PRN (16:52)
[2017-11-13] MEDS ORDERED: MAGNESIUM CITRATE 300 ML BOTTLE PO PRN (16:52)
[2017-11-13] MEDS ORDERED: guaiFENesin/D-METHORPHAN HB 10 ML UNIT-DOSE CUPS PO PRN (16:52)
[2017-11-13] MEDS ORDERED: MAGNESIUM HYDROX 2400MG/30ML ORAL SUSPENSION 30 ML CUP PO PRN (16:52)
[2017-11-13] MEDS ORDERED: MENTHOL/PHENOL 1 EACH UD MM PRN (16:52)
[2017-11-13] MEDS ORDERED: hydrOXYzine PAMOATE 50 MG CAPSULE (FP) PO PRN (16:52)
[2017-11-13] MEDS: THIAMINE HCL 100 MG TABLET (FP) PO SCH (21:50)
[2017-11-13 23:09] LABS: URINE APPEARANCE CLEAR; URINE BILIRUBIN NEGATIVE (<2.0 mg/dL); URINE COLOR YELLOW; URINE GLUCOSE (UA) NEGATIVE (NEGATIVE); URINE KETONE NEGATIVE (NEGATIVE); URINE LEUK ESTERASE NEGATIVE (NEGATIVE); URINE NITRITE NEGATIVE (NEGATIVE)
[2017-11-13 23:10] LABS: URINE PROTEIN 1+ (NEGATIVE)
[2017-11-13 23:12] LABS: EPI CELLS RARE /HPF (FEW); URINE MUCUS RARE
[2017-11-14] MEDS: PRENATAL VITAMINS W/ FOLIC ACID TABLET (FP) PO SCH (11:00)
--- NOTE | 2017-11-14 11:48 | HP ---
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 Medical History: HIV+ since 2004, smokes cigarettes 10 a day. Physical/Sexual Abuse/Trauma History: Patient reports history of depression and 3 or 4 psychiatric hospitalizations with last in 2017, all hospitalizations at [facility].He currently on Celaxa 30 mg po daily, sees at [facility], seen by while at [facility] and continued Celaxa. Vital Signs: Vital Signs - 24 hr 11/13/17 11/14/17 11/14/17 18:50 03:30 06:35 Temperature 98.4 F 97.6 F Pulse Rate 102 H 74 Respiratory 18 18 18 Rate Blood Pressure 145/86 142/76 Allergies/Adverse Reactions: Allergies Allergy/AdvReac Type Severity Reaction Status Date / Time No Known Allergies Allergy Verified 11/13/17 18:01 Date of last physical exam: 11/08/17 Concur with the findings of this exam: Yes - Substance Abuse/Tx History Hx Alcohol Use: Yes Hx Substance Use: Yes Substance Use Type: Alcohol (1 pints of sean daily ), Cocaine ($30 1-2 times a week.) Hx Substance Use Treatment: Yes (detox/ATS opd) Mental Status Exam - Mental Status Exam Alert and Oriented to: Time, Place, Person Cognitive Function: Good Patient Appearance: Well Groomed Mood: Sad Affect: Appropriate, Mood Congruent Patient Behavior: Appropriate, Cooperative Speech Pattern: Clear, Appropriate Voice Loudness: Normal Thought Process: Intact, Goal Oriented Thought Disorder: Not Present Hallucinations: Denies Suicidal Ideation: Denies Homicidal Ideation: Denies Insight/Judgement: Fair Sleep: Fair Appetite: Fair Muscle strength/Tone: Normal Gait/Station: Normal Psychiatric Findings - Problem List ([place] 1, 2,3) (1) Cocaine dependence Current Visit: Yes Status: Acute (2) MDD (major depressive disorder) Current Visit: Yes Status: Acute (3) Alcohol dependence Current Visit: Yes Status: Chronic Qualifiers: Substance use status: uncomplicated Qualified Code(s): F10.20 - Alcohol dependence, uncomplicated (4) Nicotine dependence Current Visit: No Status: Acute Qualifiers: Nicotine product type: cigarettes Substance use status: in withdrawal Qualified Code(s): F17.213 - Nicotine dependence, cigarettes, with withdrawal - Initial Treatment Plan Initial Treatment Plan: Will continue his current treatment, monitor progress as needed.
[2017-11-14] MEDS: CITALOPRAM HYDROBROMIDE 10 MG TABLET (FP) PO SCH (12:24)
[2017-11-14] MEDS: THIAMINE HCL 100 MG TABLET (FP) PO SCH (21:09)
[2017-11-15] MEDS: CITALOPRAM HYDROBROMIDE 10 MG TABLET (FP) PO SCH (09:38)
[2017-11-15] MEDS: PRENATAL VITAMINS W/ FOLIC ACID TABLET (FP) PO SCH (09:38)
--- NOTE | 2017-11-15 09:49 | EKG ---
Test Reason : Blood Pressure : / mmHG Vent. Rate : 075 BPM Atrial Rate : 075 BPM P-R Int : 160 ms QRS Dur : 088 ms QT Int : 404 ms P-R-T Axes : 046 034 035 degrees QTc Int : 451 ms NORMAL SINUS RHYTHM NORMAL ECG WHEN COMPARED WITH ECG OF 31-MAY-2017 23:33, NO SIGNIFICANT CHANGE WAS FOUND Confirmed by ISAÍAS DUCKWORTH MD ([id number]) on 11/15/2017 9:49:38 AM Referred By: Confirmed By:ISAÍAS DUCKWORTH MD
[2017-11-15] MEDS: ELVITEG/COB/EMTRI/TENOF (GENVOYA) TABLET (NF) PO SCH ×3 (11:00→21:22)
[2017-11-15] MEDS ORDERED: PT OWN MED DRAWER 7, Y5N ONE (20:25)
[2017-11-15] MEDS: THIAMINE HCL 100 MG TABLET (FP) PO SCH (21:22)
[2017-11-16] MEDS: PRENATAL VITAMINS W/ FOLIC ACID TABLET (FP) PO SCH (09:54)
[2017-11-16] MEDS: CITALOPRAM HYDROBROMIDE 10 MG TABLET (FP) PO SCH (09:54)
[2017-11-16] MEDS: ELVITEG/COB/EMTRI/TENOF (GENVOYA) TABLET (NF) PO SCH (21:34)
[2017-11-16] MEDS: THIAMINE HCL 100 MG TABLET (FP) PO SCH (21:35)
[2017-11-16] MEDS: MELATONIN 5 MG TABLETS PO PRN (21:35)
[2017-11-17] MEDS: CITALOPRAM HYDROBROMIDE 10 MG TABLET (FP) PO SCH (09:45)
[2017-11-17] MEDS: PRENATAL VITAMINS W/ FOLIC ACID TABLET (FP) PO SCH (09:45)
[2017-11-17] MEDS: THIAMINE HCL 100 MG TABLET (FP) PO SCH (21:17)
[2017-11-17] MEDS: ELVITEG/COB/EMTRI/TENOF (GENVOYA) TABLET (NF) PO SCH (21:17)
[2017-11-17] MEDS: MELATONIN 5 MG TABLETS PO PRN (21:18)
[2017-11-18] MEDS: CITALOPRAM HYDROBROMIDE 10 MG TABLET (FP) PO SCH (09:48)
[2017-11-18] MEDS: PRENATAL VITAMINS W/ FOLIC ACID TABLET (FP) PO SCH (09:48)
[2017-11-18] MEDS: MELATONIN 5 MG TABLETS PO PRN (21:22)
[2017-11-18] MEDS: THIAMINE HCL 100 MG TABLET (FP) PO SCH (21:22)
[2017-11-18] MEDS: ELVITEG/COB/EMTRI/TENOF (GENVOYA) TABLET (NF) PO SCH (21:23)
[2017-11-19] MEDS: CITALOPRAM HYDROBROMIDE 10 MG TABLET (FP) PO SCH (10:05)
[2017-11-19] MEDS: PRENATAL VITAMINS W/ FOLIC ACID TABLET (FP) PO SCH (10:05)
[2017-11-19] MEDS: THIAMINE HCL 100 MG TABLET (FP) PO SCH (21:23)
[2017-11-19] MEDS: ELVITEG/COB/EMTRI/TENOF (GENVOYA) TABLET (NF) PO SCH (21:23)
[2017-11-19] MEDS: MELATONIN 5 MG TABLETS PO PRN (21:24)
[2017-11-20] MEDS: PRENATAL VITAMINS W/ FOLIC ACID TABLET (FP) PO SCH (09:57)
[2017-11-20] MEDS: CITALOPRAM HYDROBROMIDE 10 MG TABLET (FP) PO SCH (10:40)
[2017-11-20] MEDS: THIAMINE HCL 100 MG TABLET (FP) PO SCH (21:27)
[2017-11-20] MEDS: MELATONIN 5 MG TABLETS PO PRN (21:27)
[2017-11-20] MEDS: ELVITEG/COB/EMTRI/TENOF (GENVOYA) TABLET (NF) PO SCH (21:27)
[2017-11-21] MEDS: PRENATAL VITAMINS W/ FOLIC ACID TABLET (FP) PO SCH (09:58)
[2017-11-21] MEDS: CITALOPRAM HYDROBROMIDE 10 MG TABLET (FP) PO SCH (09:58)
[2017-11-21] MEDS: MELATONIN 5 MG TABLETS PO PRN (21:16)
[2017-11-21] MEDS: THIAMINE HCL 100 MG TABLET (FP) PO SCH (21:16)
[2017-11-21] MEDS: ELVITEG/COB/EMTRI/TENOF (GENVOYA) TABLET (NF) PO SCH (21:16)
[2017-11-22] MEDS: PRENATAL VITAMINS W/ FOLIC ACID TABLET (FP) PO SCH (10:10)
[2017-11-22] MEDS: CITALOPRAM HYDROBROMIDE 10 MG TABLET (FP) PO SCH (10:10)
[2017-11-22] MEDS: MELATONIN 5 MG TABLETS PO PRN (21:17)
[2017-11-22] MEDS: THIAMINE HCL 100 MG TABLET (FP) PO SCH (21:17)
[2017-11-22] MEDS: ELVITEG/COB/EMTRI/TENOF (GENVOYA) TABLET (NF) PO SCH (21:18)
[2017-11-23] MEDS: CITALOPRAM HYDROBROMIDE 10 MG TABLET (FP) PO SCH (10:13)
[2017-11-23] MEDS: PRENATAL VITAMINS W/ FOLIC ACID TABLET (FP) PO SCH (10:14)
[2017-11-23] MEDS: THIAMINE HCL 100 MG TABLET (FP) PO SCH (21:27)
[2017-11-23] MEDS: ELVITEG/COB/EMTRI/TENOF (GENVOYA) TABLET (NF) PO SCH (21:27)
[2017-11-23] MEDS: MELATONIN 5 MG TABLETS PO PRN (21:27)
[2017-11-24] MEDS: PRENATAL VITAMINS W/ FOLIC ACID TABLET (FP) PO SCH (10:02)
[2017-11-24] MEDS: CITALOPRAM HYDROBROMIDE 10 MG TABLET (FP) PO SCH (10:02)
[2017-11-24] MEDS: THIAMINE HCL 100 MG TABLET (FP) PO SCH (21:21)
[2017-11-24] MEDS: MELATONIN 5 MG TABLETS PO PRN (21:21)
[2017-11-24] MEDS: ELVITEG/COB/EMTRI/TENOF (GENVOYA) TABLET (NF) PO SCH (21:21)
[2017-11-25] MEDS: CITALOPRAM HYDROBROMIDE 10 MG TABLET (FP) PO SCH (09:48)
[2017-11-25] MEDS: PRENATAL VITAMINS W/ FOLIC ACID TABLET (FP) PO SCH (09:49)
[2017-11-25] MEDS: MELATONIN 5 MG TABLETS PO PRN (21:17)
[2017-11-25] MEDS: ELVITEG/COB/EMTRI/TENOF (GENVOYA) TABLET (NF) PO SCH (21:17)
[2017-11-25] MEDS: THIAMINE HCL 100 MG TABLET (FP) PO SCH (21:17)
[2017-11-26] MEDS: PRENATAL VITAMINS W/ FOLIC ACID TABLET (FP) PO SCH (09:47)
[2017-11-26] MEDS: CITALOPRAM HYDROBROMIDE 10 MG TABLET (FP) PO SCH (09:47)
[2017-11-26] MEDS: ACETAMINOPHEN 325 MG TABLET (FP) PO PRN ×2 (09:48→15:34)
[2017-11-26] MEDS: THIAMINE HCL 100 MG TABLET (FP) PO SCH (21:22)
[2017-11-26] MEDS: ELVITEG/COB/EMTRI/TENOF (GENVOYA) TABLET (NF) PO SCH (21:22)
[2017-11-26] MEDS: MELATONIN 5 MG TABLETS PO PRN (21:22)
[2017-11-27] MEDS: ACETAMINOPHEN 325 MG TABLET (FP) PO PRN (06:44)
[2017-11-27 07:01] VITALS: BP 125/77; PULSE 68; TEMP 97.6
[2017-11-27] MEDS: PRENATAL VITAMINS W/ FOLIC ACID TABLET (FP) PO SCH (09:36)
[2017-11-27] MEDS: CITALOPRAM HYDROBROMIDE 10 MG TABLET (FP) PO SCH (09:36)
--- NOTE | 2017-11-27 09:37 | PN ---
Psychiatric Progress Note Vital Signs: Vital Signs Period Temp Pulse Resp BP Sys/[place] Pulse Ox Last 24 Hr 97.6 F 68 18-18 125/77 Date of Session: 11/27/17 Chief Complaint:: Discharge Note HPI: Patient addressing Alcohol and Cocaine Dependence comorbid with Nicotine Dependence and MDD ROS: HIV Current Medications: Active Medications Generic Name Dose Route Start Last Admin Trade Name Freq PRN Reason Stop Dose Admin Acetaminophen 650 mg 11/13/17 16:52 11/27/17 06:44 Tylenol - PO 650 mg Q4H PRN Administration FEVER Al Hydroxide/Mg Hydroxide 30 ml 11/13/17 16:52 Mylanta Oral Suspension - PO Q6H PRN DYSPEPSIA Citalopram Hydrobromide 30 mg 11/14/17 12:15 11/26/17 09:47 Celexa - PO 30 mg DAILY MAMTA Administration Elvitegravir/Cobicis/Emtricit/Tenof 1 tab 11/15/17 22:00 11/26/17 21:22 Genvoya (Non-Formulary) PO 1 tab HS MAMTA Administration Eucalyptus/Menthol/Phenol/Sorbitol 1 each 11/13/17 16:52 Cepastat Lozenge - MM Q4H PRN SORE THROAT Guaifenesin 10 ml 11/13/17 16:52 Robitussin Dm - PO Q6H PRN COUGH Hydroxyzine Pamoate 50 mg 11/13/17 16:52 Vistaril - PO Q4H PRN AGITATION Ibuprofen 400 mg 11/13/17 16:52 Motrin - PO Q6H PRN Pain level 4-6 Loperamide HCl 4 mg 11/13/17 16:52 Imodium - PO Q6H PRN DIARRHEA Magnesium Citrate 300 ml 11/13/17 16:52 Citroma - PO Q48H PRN CONSTIPATION Magnesium Hydroxide 30 ml 11/13/17 16:52 Milk Of Magnesia - PO DAILY PRN CONSTIPATION Melatonin 5 mg 11/13/17 22:00 11/26/17 21:22 Melatonin PO 5 mg HS PRN Administration INSOMNIA Multivit/Folic Acid/Iron 1 tab 11/14/17 10:00 11/26/17 09:47 Vitamins (Sjr) - PO 1 tab DAILY MAMTA Administration Pseudoephedrine/Triprolidine 1 combo 04/30/18 16:52 Actifed - PO TID PRN NASAL CONGESTION Thiamine HCl 100 mg 11/13/17 22:00 11/26/17 21:22 Vitamin B1 - PO 100 mg HS MAMTA Administration Current Side Effect: No Lab tests ordered: Yes Lab tests reviewed: Yes Provider note:: Patient has completed this program today. He has met his treatment goals and will continue to address his issues in outpatient treament at [facility]. Told marketing underwriter that from his participation in this program, he has learned the importance of staying away from"People, Places and Things". He responded well to Celexa 30 mg po daily. Script for 30 days supply of that medication will be electronically transmitted to [facility]. He is stable for dicharge today. Total face to face time:: 35 Mental Status Exam - Mental Status Exam Alert and Oriented to: Time, Place, Person Cognitive Function: Fair Patient Appearance: Well Groomed Mood: Hopeful, Euthymic Affect: Appropriate Patient Behavior: Cooperative Speech Pattern: Clear Voice Loudness: Normal Thought Process: Intact Thought Disorder: Not Present Hallucinations: Denies Suicidal Ideation: Denies Homicidal Ideation: Denies Insight/Judgement: Fair Sleep: Fair Appetite: Good Muscle strength/Tone: Normal Gait/Station: Normal Psychiatric Treatment Plan - Problem List (1) Alcohol dependence Qualifiers: Substance use status: uncomplicated Qualified Code(s): F10.20 - Alcohol dependence, uncomplicated (3) Nicotine dependence Qualifiers: Nicotine product type: cigarettes Substance use status: in withdrawal Qualified Code(s): F17.213 - Nicotine dependence, cigarettes, with withdrawal (5) HIV (human immunodeficiency virus infection) Comment: 2004 patient dose not have his medication upon admission with Initial treatment plan: Patient is discharged today and referred to [facility] for outpatient treatment
== END 2017-11-27 09:39 | disposition home or self-care (01) | DRG 772 ==
LOC: YASAS 10:37 → Y5N 17:03
PROVIDERS: ADMIT Psychiatry & Neurology Psychiatry; ATTEND Psychiatry & Neurology Psychiatry
PROC: HZ42ZZZ Group Counseling for Substance Abuse Treatment, Cognitive-Behavioral (ICD-10-PCS; principal; 2017-11-13)
DX: F10.20 Alcohol dependence, uncomplicated (principal); F14.20 Cocaine dependence, uncomplicated; F17.213 Nicotine dependence, cigarettes, with withdrawal; F33.9 Major depressive disorder, recurrent, unspecified; Z21 Asymptomatic human immunodeficiency virus [HIV] infection status
CPT/HCPCS: 81003; 81015; 82962; 93005; 93010

== ENCOUNTER 2018-06-12 09:23 | Inpatient (IN) | payer OTHER ==
[2018-06-12 09:48] VITALS: BMI 34.0
--- NOTE | 2018-06-12 10:15 | HP ---
CIWA Score Nausea/Vomitin-Mild Nausea/No Vomiting Muscle Tremors: 4-Moderate,w/Arms Extend Anxiety: 4-Mod. Anxious/Guarded Agitation: 1-Slight > Activity Paroxysmal Sweats: 2 Orientation: 0-Oriented Tacttile Disturbances: 0-None Auditory Disturbances: 0-None Visual Disturbances: 0-None Headache: 0-None Present CIWA-Ar Total Score: 12 - Admission Criteria OASAS Guidelines: Admission for Medically Managed Detox: Requires at least one of the followin. CIWA greater than 12 2. Seizures within the past 24 hours 3. Delirium tremens within the past 24 hours 4. Hallucinations within the past 24 hours 5. Acute intervention needed for co occurring medical disorder 6. Acute intervention needed for co occurring psychiatric disorder 7. Severe withdrawal that cannot be handled at a lower level of care (continued vomiting, continued diarrhea, abnormal vital signs) requiring intravenous medication and/or fluids 8. Admission ROS S - HPI Allergies/Adverse Reactions: Allergies Allergy/AdvReac Type Severity Reaction Status Date / Time No Known Allergies Allergy Verified 06/12/18 10:27 History of Present Illness: pt here requesting detox from etoh use , reports 6 -pk /day x 1 month , reports tremors and severe anxiety if not drinking , nausea , latest drink this morning , starts drinking in the mornings , denies seizures, + blackouts , falls while intoxicated , denies legal issues ( DUI, DWI) , denies driving while intoxicated . Prior detox at this facility - several months ago . tobacco use - 1/2 ppd , does not want nrt rahel 0.122 utox negative first age of use - 13 , ETOH cannabis -15 cocaine -27 PMHX : HIV - brought one bottle of Genvoya dated January 2017 PSHX : tonsillectomy PSYch: anxiety Exam Limitations: Intoxication - Ebola screening Have you traveled outside of the country in the last 21 days: No Have you had contact with anyone from an Ebola affected area: No Have you been sick,other than usual withdrawal symptoms: No Do you have a fever: No - Review of Systems Constitutional: See HPI EENT: reports: Other (reading glasses) Respiratory: reports: No Symptoms reported Cardiac: reports: No Symptoms Reported GI: reports: No Symptoms Reported : reports: No Symptoms Reported Musculoskeletal: reports: No Symptoms Reported Integumentary: reports: No Symptoms Reported Neuro: reports: No Symptoms reported Psychiatric: reports: Orientated x3, Anxious Patient History - Patient Medical History Hx Anemia: No Hx Asthma: No Hx Chronic Obstructive Pulmonary Disease (COPD): No Hx Cancer: No Hx Cardiac Disorders: No Hx Congestive Heart Failure: No Hx Hypertension: No Hx Hypercholesterolemia: No Hx Pacemaker: No HX Cerebrovascular Accident: No Hx Seizures: No Hx Dementia: No Hx Diabetes: No Hx Gastrointestinal Disorders: No Hx Liver Disease: No Hx Genitourinary Disorders: No Hx Sexually Transmitted Disorders: Yes Hx Renal Disease (ESRD): No Hx Thyroid Disease: No Hx Human Immunodeficiency Virus (HIV): Yes (2004) Hx Hepatitis C: No Hx Depression: Yes Hx Suicide Attempt: No Hx Bipolar Disorder: No Hx Schizophrenia: No - Patient Surgical History Past Surgical History: No Hx Neurologic Surgery: No Hx Cataract Extraction: No Hx Cardiac Surgery: No Hx Lung Surgery: No Hx Breast Surgery: No Hx Breast Biopsy: No Hx Abdominal Surgery: No Hx Appendectomy: No Hx Cholecystectomy: No Hx Genitourinary Surgery: No Hx Section: No Hx Orthopedic Surgery: No Anesthesia Reaction: No - PPD History Date: 11/06/17 Results: 0MM - Smoking Cessation Smoking history: Current every day smoker Have you smoked in the past 12 months: Yes Aproximately how many cigarettes per day: 10 Cigars Per Day: 0 Hx Chewing Tobacco Use: No Initiated information on smoking cessation: No - Substances Abused Alcohol-sean/beer Route: Oral Frequency: Daily Amount used: 2 pts./1-6 pk. Age of first use: 13 Date of Last Use: 06/12/18 Family Disease History - Family Disease History Family Disease History: CA: Mother (,brain tumor), Other: Mother Admission Physical Exam S - Vital Signs Vital Signs: Vital Signs - 24 hr 06/12/18 09:45 Temperature 97.4 F L Pulse Rate 99 H Respiratory 20 Rate Blood Pressure 142/80 - Physical General Appearance: Yes: Alcohol on Breath, Intoxicated HEENTM: Yes: EOMI, Hearing grossly Normal, Normocephalic, Normal Voice Respiratory: Yes: Chest Non-Tender, Lungs Clear, Normal Breath Sounds Neck: Yes: No masses,lesions,Nodules, Trachea in good position Breast: Yes: Breast Exam Deferred Cardiology: Yes: Regular Rhythm, Regular Rate, Tachycardia Abdominal: Yes: Normal Bowel Sounds, Non Tender, Soft Genitourinary: Yes: Within Normal Limits Back: Yes: Normal Inspection Musculoskeletal: Yes: full range of Motion, Gait Steady Extremities: Yes: Normal Capillary Refill, Normal Inspection, Normal Range of Motion, Tremors Neurological: Yes: Fully Oriented, Motor Strength 5/5 Integumentary: Yes: Normal Color, Dry, Warm - Diagnostic (1) Alcohol dependence with uncomplicated withdrawal Current Visit: No Status: Acute (2) Nicotine dependence Current Visit: No Status: Chronic Qualifiers: Nicotine product type: cigarettes Substance use status: in withdrawal Qualified Code(s): F17.213 - Nicotine dependence, cigarettes, with withdrawal [facility] Breath Alcohol Content Breath Alcohol Content: 0.122 Urine Drug Screen - Results Drug Screen Negative: Yes
[2018-06-12] MEDS ORDERED: IBUPROFEN 400 MG TABLET (FP) PO PRN (10:19)
[2018-06-12] MEDS ORDERED: P-EPHED 60MG/TRIPROLIDI 2.5MG TABLET PO PRN (10:19)
[2018-06-12] MEDS ORDERED: guaiFENesin/D-METHORPHAN HB 10 ML UNIT-DOSE CUPS PO PRN (10:19)
[2018-06-12] MEDS ORDERED: ACETAMINOPHEN 325 MG TABLET (FP) PO PRN (10:19)
[2018-06-12] MEDS ORDERED: MAG HYDROX/AL HYDROX/SIMETH 30 ML UNIT-DOSE CUP PO PRN (10:19)
[2018-06-12] MEDS ORDERED: chlordiazePOXIDE HCL 25 MG CAPSULE PO PRN (10:19)
[2018-06-12] MEDS ORDERED: MAGNESIUM CITRATE 300 ML BOTTLE PO PRN (10:19)
[2018-06-12] MEDS ORDERED: MENTHOL/PHENOL 1 EACH UD MM PRN (10:19)
[2018-06-12] MEDS ORDERED: MAGNESIUM HYDROX 2400MG/30ML ORAL SUSPENSION 30 ML CUP PO PRN (10:19)
[2018-06-12] MEDS: chlordiazePOXIDE HCL 25 MG CAPSULE PO SCH ×2 (16:28→22:09)
[2018-06-12 17:11] LABS: URINE APPEARANCE CLEAR; URINE BILIRUBIN NEGATIVE (<2.0 mg/dL); URINE COLOR STRAW; URINE GLUCOSE (UA) NEGATIVE (NEGATIVE); URINE KETONE NEGATIVE (NEGATIVE); URINE LEUK ESTERASE NEGATIVE (NEGATIVE); URINE NITRITE NEGATIVE (NEGATIVE); URINE PROTEIN NEGATIVE (NEGATIVE); URINE UROBILINOGEN NEGATIVE mg/dL (0.2-1.0)
[2018-06-12] MEDS: MELATONIN 5 MG TABLETS PO PRN (22:09)
[2018-06-12] MEDS: THIAMINE HCL 100 MG TABLET (FP) PO SCH (22:09)
[2018-06-13] MEDS: chlordiazePOXIDE HCL 25 MG CAPSULE PO SCH ×4 (06:05→22:01)
[2018-06-13] MEDS: PRENATAL VITAMINS W/ FOLIC ACID TABLET (FP) PO SCH (10:24)
--- NOTE | 2018-06-13 11:13 | PN ---
S CIWA - CIWA Score Nausea/Vomitin Muscle Tremors: 4-Moderate,w/Arms Extend Anxiety: 2 Agitation: 2 Paroxysmal Sweats: 3 Orientation: 0-Oriented Tacttile Disturbances: 1-Very Mild Itch/Numbness Auditory Disturbances: 0-None Visual Disturbances: 0-None Headache: 2-Mild CIWA-Ar Total Score: 16 [facility] Progress Note (SOAP) Subjective: Tremor, chills, sweating Objective: 06/13/18 11:11 Last Vital Signs Temp Pulse Resp BP Pulse Ox 96.6 F L 77 18 122/67 06/13/18 10:00 06/13/18 10:00 06/13/18 10:00 06/13/18 10:00 Laboratory Tests 06/12/18 12:33 Urine Color Straw Urine Appearance Clear Urine pH 6.0 Ur Specific [place] 1.003 L Urine Protein Negative Urine Glucose (UA) Negative Urine Ketones Negative Urine Blood Negative Urine Nitrite Negative Urine Bilirubin Negative Urine Urobilinogen Negative Ur Leukocyte Esterase Negative UA noted; admission labs in progress Assessment: 06/13/18 11:12 Withdrawal symptoms Plan: Continue detox Encouraged PO water intake
[2018-06-13 11:32] LABS: ALBUMIN 3.6 g/dl (3.4-5.0); ALK PHOS 94 U/L (45-117); ANION GAP 12 MMOL/L (8-16); BILIRUBIN,TOTAL 0.4 mg/dL (0.2-1); BLOOD UREA NITROGEN 11 mg/dL (7-18); CALCIUM 8.8 mg/dL (8.5-10.1); CHLORIDE 106 mmol/L (98-107); CO2 22 mmol/L (21-32); GLUCOSE,RANDOM 160 mg/dL (74-106); POTASSIUM 3.6 mmol/L (3.5-5.1); SGOT/AST 71 U/L (15-37); SGPT/ALT 106 U/L (13-61); SODIUM 140 mmol/L (136-145); TOT PROT 7.4 g/dl (6.4-8.2)
[2018-06-13 11:34] LABS: HEMATOCRIT 37.8 % (35.4-49); HEMOGLOBIN 11.9 GM/dL (11.7-16.9); MCH 28.3 pg (25.7-33.7); MCHC 31.6 g/dl (32.0-35.9); MEAN CELL VOLUME 89.3 fl (80-96); MEAN PLT VOLUME 10.7 fl (7.5-11.1); RBC 4.23 M/mm3 (4.00-5.60); RDW 15.5 % (11.9-15.9); WHITE BLOOD COUNT 6.5 K/mm3 (4.0-10.0)
[2018-06-13 15:41] LABS: PLATELET COUNT 91 K/MM3 (134-434)
[2018-06-13] MEDS: MELATONIN 5 MG TABLETS PO PRN (22:01)
[2018-06-13] MEDS: THIAMINE HCL 100 MG TABLET (FP) PO SCH (22:02)
[2018-06-14] MEDS: chlordiazePOXIDE HCL 25 MG CAPSULE PO SCH ×2 (05:29→10:34)
[2018-06-14] MEDS: PRENATAL VITAMINS W/ FOLIC ACID TABLET (FP) PO SCH (10:34)
--- NOTE | 2018-06-14 11:32 | PN ---
S CIWA - CIWA Score Nausea/Vomitin-No Nausea/No Vomiting Muscle Tremors: 2 Anxiety: 3 Agitation: 3 Paroxysmal Sweats: No Perspiration Orientation: 0-Oriented Tacttile Disturbances: 0-None Auditory Disturbances: 0-None Visual Disturbances: 0-None Headache: 2-Mild CIWA-Ar Total Score: 10 S Progress Note (SOAP) Subjective: PATIENT C/O SHAKES, ANXIETY, RESTLESSNESS AND HEADACHE Objective: 06/14/18 11:29 Vital Signs Temperature 96.4 F L 06/14/18 09:33 Pulse Rate 69 06/14/18 09:33 Respiratory Rate 18 06/14/18 09:33 Blood Pressure 121/67 06/14/18 09:33 O2 Sat by Pulse Oximetry (%) Laboratory Tests 06/12/18 06/13/18 06/13/18 12:33 06:00 06:00 WBC 6.5 RBC 4.23 Hgb 11.9 Hct 37.8 MCV 89.3 MCH 28.3 MCHC 31.6 L RDW 15.5 Plt Count 91 L D MPV 10.7 Platelet Comment Sodium 140 Potassium 3.6 Chloride 106 Carbon Dioxide 22 Anion Gap 12 BUN 11 Creatinine 1.0 Creat Clearance w eGFR > 60 Random Glucose 160 H Calcium 8.8 Total Bilirubin 0.4 AST 71 H ALT 106 H Alkaline Phosphatase 94 Total Protein 7.4 Albumin 3.6 Urine Color Straw Urine Appearance Clear Urine pH 6.0 Ur Specific [place] 1.003 L Urine Protein Negative Urine Glucose (UA) Negative Urine Ketones Negative Urine Blood Negative Urine Nitrite Negative Urine Bilirubin Negative Urine Urobilinogen Negative Ur Leukocyte Esterase Negative RPR Titer 06/13/18 06:00 WBC RBC Hgb Hct MCV MCH MCHC RDW Plt Count MPV Platelet Comment Sodium Potassium Chloride Carbon Dioxide Anion Gap BUN Creatinine Creat Clearance w eGFR Random Glucose Calcium Total Bilirubin AST ALT Alkaline Phosphatase Total Protein Albumin Urine Color Urine Appearance Urine pH Ur Specific [place] Urine Protein Urine Glucose (UA) Urine Ketones Urine Blood Urine Nitrite Urine Bilirubin Urine Urobilinogen Ur Leukocyte Esterase RPR Titer Nonreactive PE: ALERT AND ORIENTED X 3 SKIN WARM AND DRY EXT FULL ROM, AMB AD ANDERSON, +TREMORS NEURO: +PERRLA, EOMS INTACT BL ANXIOUS Assessment: 06/14/18 11:31 WITHDRAWAL SX Plan: CONTINUE DETOX ENCOURAGE ORAL FLUIDS CONTINUE TO MONITOR CLINICALLY
[2018-06-14] MEDS: chlordiazePOXIDE 5 MG CAPSULE PO SCH ×2 (17:19→22:33)
[2018-06-14] MEDS: THIAMINE HCL 100 MG TABLET (FP) PO SCH (22:33)
[2018-06-14] MEDS: MELATONIN 5 MG TABLETS PO PRN (22:34)
[2018-06-15] MEDS: chlordiazePOXIDE 5 MG CAPSULE PO SCH ×2 (06:07→10:45)
[2018-06-15 10:28] LABS: BASO % 0.4 % (0-2.0); EOS % 2.1 % (0-4.5); HEMATOCRIT 34.6 % (35.4-49); HEMOGLOBIN 11.7 GM/dL (11.7-16.9); LYMPH % 15.5 % (8-40); MCH 29.8 pg (25.7-33.7); MCHC 33.9 g/dl (32.0-35.9); MEAN PLT VOLUME 10.7 fl (7.5-11.1); MONO % 7.4 % (3.8-10.2); NEUT % 74.6 % (42.8-82.8); PLATELET COUNT 95 K/MM3 (134-434); RBC 3.92 M/mm3 (4.00-5.60); RDW 15.5 % (11.9-15.9); WHITE BLOOD COUNT 5.5 K/mm3 (4.0-10.0)
[2018-06-15] MEDS: PRENATAL VITAMINS W/ FOLIC ACID TABLET (FP) PO SCH (10:45)
--- NOTE | 2018-06-15 13:44 | PN ---
[facility] Progress Note (SOAP) Subjective: Patient denies withdrawal symptoms; patient appears restless, anxious Objective: 06/15/18 13:39 Last Vital Signs Temp Pulse Resp BP Pulse Ox 97.4 F L 80 20 113/67 06/15/18 10:12 06/15/18 10:12 06/15/18 10:12 06/15/18 10:12 Laboratory Tests 06/12/18 06/13/18 06/13/18 12:33 06:00 06:00 WBC 6.5 RBC 4.23 Hgb 11.9 Hct 37.8 MCV 89.3 MCH 28.3 MCHC 31.6 L RDW 15.5 Plt Count 91 L D MPV 10.7 Absolute Neuts (auto) Neutrophils % Lymphocytes % Monocytes % Eosinophils % Basophils % Nucleated RBC % Platelet Comment Sodium 140 Potassium 3.6 Chloride 106 Carbon Dioxide 22 Anion Gap 12 BUN 11 Creatinine 1.0 Creat Clearance w eGFR > 60 Random Glucose 160 H Calcium 8.8 Total Bilirubin 0.4 AST 71 H ALT 106 H Alkaline Phosphatase 94 Total Protein 7.4 Albumin 3.6 Urine Color Straw Urine Appearance Clear Urine pH 6.0 Ur Specific [place] 1.003 L Urine Protein Negative Urine Glucose (UA) Negative Urine Ketones Negative Urine Blood Negative Urine Nitrite Negative Urine Bilirubin Negative Urine Urobilinogen Negative Ur Leukocyte Esterase Negative RPR Titer 06/13/18 06/15/18 06:00 07:30 WBC 5.5 RBC 3.92 L Hgb 11.7 Hct 34.6 L MCV 88.0 MCH 29.8 MCHC 33.9 RDW 15.5 Plt Count 95 L MPV 10.7 Absolute Neuts (auto) 4.1 Neutrophils % 74.6 Lymphocytes % 15.5 Monocytes % 7.4 Eosinophils % 2.1 Basophils % 0.4 Nucleated RBC % 0 Platelet Comment Sodium Potassium Chloride Carbon Dioxide Anion Gap BUN Creatinine Creat Clearance w eGFR Random Glucose Calcium Total Bilirubin AST ALT Alkaline Phosphatase Total Protein Albumin Urine Color Urine Appearance Urine pH Ur Specific [place] Urine Protein Urine Glucose (UA) Urine Ketones Urine Blood Urine Nitrite Urine Bilirubin Urine Urobilinogen Ur Leukocyte Esterase RPR Titer Nonreactive Labs reviewed: serum glucose 160 Assessment: 06/15/18 13:41 Withdrawal symptoms Noted with hyperglycemia Plan: Continue detox Hyperglycemia: encouraged PO water intake, repeat fasting glucose, finger stick glucose x 1 now
[2018-06-15] MEDS ORDERED: INSULIN SLIDING SCALE (NOVOLOG) 1 VIAL SQ ONE (14:30)
[2018-06-15] MEDS ORDERED: Insulin (LOG) Aspart 100 UNITS/ML VIAL SQ ONE (15:00)
[2018-06-15] MEDS: metFORMIN HCL 500 MG TABLET (FP) PO SCH (16:36)
[2018-06-15] MEDS: INSULIN SLIDING SCALE (NOVOLOG) 1 VIAL SQ SCH (17:10)
[2018-06-15] MEDS: chlordiazePOXIDE HCL 10 MG CAPSULE PO SCH ×2 (17:36→22:29)
[2018-06-15] MEDS: THIAMINE HCL 100 MG TABLET (FP) PO SCH (22:29)
[2018-06-15] MEDS: MELATONIN 5 MG TABLETS PO PRN (22:29)
[2018-06-16 06:32] VITALS: BP 139/90; PULSE 69; TEMP 97.2
[2018-06-16] MEDS: INSULIN SLIDING SCALE (NOVOLOG) 1 VIAL SQ SCH (06:34)
[2018-06-16] MEDS: metFORMIN HCL 500 MG TABLET (FP) PO SCH (06:34)
[2018-06-16] MEDS: chlordiazePOXIDE HCL 10 MG CAPSULE PO SCH ×2 (06:34→10:52)
--- NOTE | 2018-06-16 08:46 | PN ---
S Progress Note (SOAP) Subjective: PATIENT COMPLETED DETOX. PT MET WITH COUNSELOR RE;AFTERCARE INFORMATION. PT REPORTD HE WILL ATTEND [facility] ON [address] [place] [address]. PT ALSO REPORTS HE HAS A PCP DR. JAMES AT [facility] [phone]. PT STATES HE IS DECLINING FURTHER TREATMENT WITH [facility] UNTIL HE SEES HIS PMD ON Monday06/19/18. ALERT O X 3. OOB AMBULATING WITH STEADY GAIT. NAD. Objective: 06/16/18 08:45 Vital Signs 06/16/18 06/16/18 03:30 06:32 Temperature 97.2 F L Pulse Rate 69 Respiratory 18 18 Rate Blood Pressure 139/90 Laboratory Tests 06/12/18 06/13/18 06/13/18 12:33 06:00 06:00 WBC 6.5 RBC 4.23 Hgb 11.9 Hct 37.8 MCV 89.3 MCH 28.3 MCHC 31.6 L RDW 15.5 Plt Count 91 L D MPV 10.7 Absolute Neuts (auto) Neutrophils % Lymphocytes % Monocytes % Eosinophils % Basophils % Nucleated RBC % Platelet Comment Sodium 140 Potassium 3.6 Chloride 106 Carbon Dioxide 22 Anion Gap 12 BUN 11 Creatinine 1.0 Creat Clearance w eGFR > 60 POC Glucometer Random Glucose 160 H Calcium 8.8 Total Bilirubin 0.4 AST 71 H ALT 106 H Alkaline Phosphatase 94 Total Protein 7.4 Albumin 3.6 Urine Color Straw Urine Appearance Clear Urine pH 6.0 Ur Specific [place] 1.003 L Urine Protein Negative Urine Glucose (UA) Negative Urine Ketones Negative Urine Blood Negative Urine Nitrite Negative Urine Bilirubin Negative Urine Urobilinogen Negative Ur Leukocyte Esterase Negative RPR Titer 06/13/18 06/15/18 06/15/18 06:00 07:30 14:18 WBC 5.5 RBC 3.92 L Hgb 11.7 Hct 34.6 L MCV 88.0 MCH 29.8 MCHC 33.9 RDW 15.5 Plt Count 95 L MPV 10.7 Absolute Neuts (auto) 4.1 Neutrophils % 74.6 Lymphocytes % 15.5 Monocytes % 7.4 Eosinophils % 2.1 Basophils % 0.4 Nucleated RBC % 0 Platelet Comment Sodium Potassium Chloride Carbon Dioxide Anion Gap BUN Creatinine Creat Clearance w eGFR POC Glucometer 488 Random Glucose Calcium Total Bilirubin AST ALT Alkaline Phosphatase Total Protein Albumin Urine Color Urine Appearance Urine pH Ur Specific [place] Urine Protein Urine Glucose (UA) Urine Ketones Urine Blood Urine Nitrite Urine Bilirubin Urine Urobilinogen Ur Leukocyte Esterase RPR Titer Nonreactive 06/15/18 06/16/18 16:23 06:17 WBC RBC Hgb Hct MCV MCH MCHC RDW Plt Count MPV Absolute Neuts (auto) Neutrophils % Lymphocytes % Monocytes % Eosinophils % Basophils % Nucleated RBC % Platelet Comment Sodium Potassium Chloride Carbon Dioxide Anion Gap BUN Creatinine Creat Clearance w eGFR POC Glucometer 90 102 Random Glucose Calcium Total Bilirubin AST ALT Alkaline Phosphatase Total Protein Albumin Urine Color Urine Appearance Urine pH Ur Specific [place] Urine Protein Urine Glucose (UA) Urine Ketones Urine Blood Urine Nitrite Urine Bilirubin Urine Urobilinogen Ur Leukocyte Esterase RPR Titer BGM RESULTS NOTED Assessment: 06/16/18 08:45 NAD Plan: D/C PT TODAY PT WILL FOLLOW UP WITH HIS PCP FOR MEDICAL WORK UP RE:ELEVATED BLOOD SUGAR.
--- NOTE | 2018-06-16 08:47 | DS ---
[facility] Detox Discharge Summary Admission Date: 06/12/18 Discharge Date: 06/16/18 - History Present History: Alcohol Dependence, Cocaine Dependence Additional Comments: PT WILL BE FOLLOWING UP WITH HIS PMD DR. JAMES AT [facility] ON 06/19/18 FOR COMPLETED CHECK UP AND RX. Pertinent Past History: PLEASE SEE DX BELOW - Physical Exam Results Vital Signs: Vital Signs Temperature 97.2 F L 06/16/18 06:32 Pulse Rate 69 06/16/18 06:32 Respiratory Rate 18 06/16/18 06:32 Blood Pressure 139/90 06/16/18 06:32 O2 Sat by Pulse Oximetry (%) Pertinent Admission Physical Exam Findings: WITHDRAWAL SX Laboratory Tests 06/12/18 06/13/18 06/13/18 12:33 06:00 06:00 WBC 6.5 RBC 4.23 Hgb 11.9 Hct 37.8 MCV 89.3 MCH 28.3 MCHC 31.6 L RDW 15.5 Plt Count 91 L D MPV 10.7 Absolute Neuts (auto) Neutrophils % Lymphocytes % Monocytes % Eosinophils % Basophils % Nucleated RBC % Platelet Comment Sodium 140 Potassium 3.6 Chloride 106 Carbon Dioxide 22 Anion Gap 12 BUN 11 Creatinine 1.0 Creat Clearance w eGFR > 60 POC Glucometer Random Glucose 160 H Calcium 8.8 Total Bilirubin 0.4 AST 71 H ALT 106 H Alkaline Phosphatase 94 Total Protein 7.4 Albumin 3.6 Urine Color Straw Urine Appearance Clear Urine pH 6.0 Ur Specific [place] 1.003 L Urine Protein Negative Urine Glucose (UA) Negative Urine Ketones Negative Urine Blood Negative Urine Nitrite Negative Urine Bilirubin Negative Urine Urobilinogen Negative Ur Leukocyte Esterase Negative RPR Titer 06/13/18 06/15/18 06/15/18 06:00 07:30 14:18 WBC 5.5 RBC 3.92 L Hgb 11.7 Hct 34.6 L MCV 88.0 MCH 29.8 MCHC 33.9 RDW 15.5 Plt Count 95 L MPV 10.7 Absolute Neuts (auto) 4.1 Neutrophils % 74.6 Lymphocytes % 15.5 Monocytes % 7.4 Eosinophils % 2.1 Basophils % 0.4 Nucleated RBC % 0 Platelet Comment Sodium Potassium Chloride Carbon Dioxide Anion Gap BUN Creatinine Creat Clearance w eGFR POC Glucometer 488 Random Glucose Calcium Total Bilirubin AST ALT Alkaline Phosphatase Total Protein Albumin Urine Color Urine Appearance Urine pH Ur Specific [place] Urine Protein Urine Glucose (UA) Urine Ketones Urine Blood Urine Nitrite Urine Bilirubin Urine Urobilinogen Ur Leukocyte Esterase RPR Titer Nonreactive 06/15/18 06/16/18 16:23 06:17 WBC RBC Hgb Hct MCV MCH MCHC RDW Plt Count MPV Absolute Neuts (auto) Neutrophils % Lymphocytes % Monocytes % Eosinophils % Basophils % Nucleated RBC % Platelet Comment Sodium Potassium Chloride Carbon Dioxide Anion Gap BUN Creatinine Creat Clearance w eGFR POC Glucometer 90 102 Random Glucose Calcium Total Bilirubin AST ALT Alkaline Phosphatase Total Protein Albumin Urine Color Urine Appearance Urine pH Ur Specific [place] Urine Protein Urine Glucose (UA) Urine Ketones Urine Blood Urine Nitrite Urine Bilirubin Urine Urobilinogen Ur Leukocyte Esterase RPR Titer - Treatment Hospital Course: Detox Protocol Followed, Detoxed Safely, Responded well, Discharged Condition Good, Rehab Referral Accepted Patient has Accepted a Rehab Referral to: [facility], [place] - Medication Discharge Medications: Ambulatory Orders Elviteg/Cob/Emtri/Tenof Alafen [Genvoya (Non-Formulary)] 1 each PO DAILY Citalopram Hydrobromide [Celexa -] 30 mg PO DAILY #90 tablet 11/27/17 - Diagnosis (1) Alcohol dependence with uncomplicated withdrawal Status: Acute (2) Cocaine dependence, uncomplicated Status: Acute (3) HIV (human immunodeficiency virus infection) Status: Chronic (4) Hepatitis C Status: Chronic (5) Nicotine dependence Status: Acute Qualifiers: Nicotine product type: cigarettes Substance use status: in withdrawal Qualified Code(s): F17.213 - Nicotine dependence, cigarettes, with withdrawal - AMA Did Patient Leave Against Medical Advice: No
[2018-06-16] MEDS: PRENATAL VITAMINS W/ FOLIC ACID TABLET (FP) PO SCH (10:52)
== END 2018-06-16 09:30 | disposition home or self-care (01) | DRG 774 ==
LOC: YASAS 09:23 → Y3N 10:59
PROC: HZ2ZZZZ Detoxification Services for Substance Abuse Treatment (ICD-10-PCS; principal; 2018-06-12)
DX: F10.230 Alcohol dependence with withdrawal, uncomplicated (principal); F14.20 Cocaine dependence, uncomplicated; F17.210 Nicotine dependence, cigarettes, uncomplicated; F41.9 Anxiety disorder, unspecified; F34.1 Dysthymic disorder; Z21 Asymptomatic human immunodeficiency virus [HIV] infection status; B18.2 Chronic viral hepatitis C; D69.6 Thrombocytopenia, unspecified; R73.9 Hyperglycemia, unspecified
CPT/HCPCS: 36415; 80053; 81003; 82962; 85025; 85027; 86593

== ENCOUNTER 2018-08-27 17:00 | Inpatient (IN) | payer OTHER ==
[2018-08-27 18:42] VITALS: BMI 35.9
--- NOTE | 2018-08-27 21:50 | HP ---
CIWA Score Nausea/Vomitin Muscle Tremors: 3 Anxiety: 2 Agitation: 2 Paroxysmal Sweats: 2 Orientation: 0-Oriented Tacttile Disturbances: 2-Mild Itch/Numbness/Burn Auditory Disturbances: 2-Mild Harshness/Frighten Visual Disturbances: 2-Mild Sensitivity Headache: 1-Very Mild CIWA-Ar Total Score: 18 - Admission Criteria OASAS Guidelines: Admission for Medically Managed Detox: Requires at least one of the followin. CIWA greater than 12 2. Seizures within the past 24 hours 3. Delirium tremens within the past 24 hours 4. Hallucinations within the past 24 hours 5. Acute intervention needed for co occurring medical disorder 6. Acute intervention needed for co occurring psychiatric disorder 7. Severe withdrawal that cannot be handled at a lower level of care (continued vomiting, continued diarrhea, abnormal vital signs) requiring intravenous medication and/or fluids 8. Admission ROS [facility] - HPI Chief Complaint: DEPENDENT ON ETOH AND CRACK/COCAINE Allergies/Adverse Reactions: Allergies Allergy/AdvReac Type Severity Reaction Status Date / Time No Known Allergies Allergy Verified 06/12/18 10:27 History of Present Illness: THE PT. IS REQUESTING ADMISSION TO THE DETOX UNIT AND CAME FOR H AND PE Exam Limitations: No Limitations - Ebola screening Have you traveled outside of the country in the last 21 days: No Have you had contact with anyone from an Ebola affected area: No Have you been sick,other than usual withdrawal symptoms: No Do you have a fever: No - Review of Systems Constitutional: See HPI, Malaise, Weakness EENT: reports: See HPI Respiratory: reports: See HPI Cardiac: reports: See HPI GI: reports: See HPI, Abdominal cramping : reports: See HPI Musculoskeletal: reports: See HPI, Muscle Pain, Muscle Weakness Integumentary: reports: See HPI, Flushing, Sweating Neuro: reports: See HPI, Headache, Tremors, Weakness Endocrine: reports: See HPI Hematology: reports: See HPI Psychiatric: reports: Judgement Intact, Orientated x3, Anxious, Depressed Patient History - Patient Medical History Hx Anemia: No Hx Asthma: No Hx Chronic Obstructive Pulmonary Disease (COPD): No Hx Cancer: No Hx Cardiac Disorders: No Hx Congestive Heart Failure: No Hx Hypertension: No Hx Hypercholesterolemia: No Hx Pacemaker: No HX Cerebrovascular Accident: No Hx Seizures: No Hx Dementia: No Hx Diabetes: No Hx Gastrointestinal Disorders: No Hx Liver Disease: No Hx Genitourinary Disorders: No Hx Sexually Transmitted Disorders: Yes Hx Renal Disease (ESRD): No Hx Thyroid Disease: No Hx Human Immunodeficiency Virus (HIV): Yes (2004) Hx Hepatitis C: No Hx Depression: Yes (AND ANXIETY) Hx Suicide Attempt: No Hx Bipolar Disorder: No Hx Schizophrenia: No - Patient Surgical History Past Surgical History: No Hx Neurologic Surgery: No Hx Cataract Extraction: No Hx Cardiac Surgery: No Hx Lung Surgery: No Hx Breast Surgery: No Hx Breast Biopsy: No Hx Abdominal Surgery: No Hx Appendectomy: No Hx Cholecystectomy: No Hx Genitourinary Surgery: No Hx Section: No Hx Orthopedic Surgery: No Other Surgical History: tonsillectomy at age 13 Anesthesia Reaction: No - PPD History Date: 11/06/17 Results: 0MM - Smoking Cessation Smoking history: Current every day smoker Have you smoked in the past 12 months: Yes Aproximately how many cigarettes per day: 10 Cigars Per Day: 0 Hx Chewing Tobacco Use: No Initiated information on smoking cessation: Yes 'Breaking Loose' booklet given: 08/27/18 - Substance & Tx. History Hx Alcohol Use: Yes Hx Substance Use: Yes Substance Use Type: Alcohol, Cocaine Hx Substance Use Treatment: Yes - Substances Abused Alcohol Route: Oral Frequency: Daily Amount used: BEER 2X6 PKS/LIQUOR 1 P/D Age of first use: 15 Date of Last Use: 08/27/18 Crack Route: Smoking Frequency: 1-2 times per week Amount used: $100/ONCE A WK Age of first use: 27 Date of Last Use: 08/26/18 Family Disease History - Family Disease History Family Disease History: CA: Mother (,brain tumor), Other: Mother Admission Physical Exam S - Vital Signs Vital Signs: Vital Signs - 24 hr 08/27/18 18:40 Temperature 97.2 F L Pulse Rate 112 H Respiratory 18 Rate Blood Pressure 162/92 - Physical General Appearance: Yes: No Apparent Distress, Nourished, Appropriately Dressed , Obese, Tremorous, Sweating, Anxious HEENTM: Yes: Hearing grossly Normal, Normocephalic, Normal Voice, [place], Pharynx Normal Respiratory: Yes: Chest Non-Tender, Lungs Clear, Normal Breath Sounds, No Respiratory Distress, No Accessory Muscle Use Neck: Yes: No masses,lesions,Nodules, Supple, Trachea in good position Breast: Yes: Breast Exam Deferred, Axillae without masses Cardiology: Yes: Regular Rhythm, S1, S2, Tachycardia Abdominal: Yes: Normal Bowel Sounds, Non Tender, Soft, Protuberent, Distended Back: Yes: Normal Inspection Musculoskeletal: Yes: full range of Motion, Gait Steady, Pelvis Stable, Muscle Pain, Muscle weakness Extremities: Yes: Normal Capillary Refill, Normal Range of Motion, Non-Tender, Tremors Neurological: Yes: child care cook II-XII NML intact, Fully Oriented, Alert, Motor Strength 5/5, Normal Response Integumentary: Yes: Normal Color, Warm, Moist Lymphatic: Yes: Within Normal Limits - Diagnostic (1) Anxiety and depression Current Visit: Yes Status: Chronic (2) Alcohol dependence with uncomplicated withdrawal Current Visit: No Status: Chronic (3) Cocaine dependence, uncomplicated Current Visit: No Status: Chronic (4) Nicotine dependence Current Visit: No Status: Chronic Qualifiers: Nicotine product type: cigarettes Substance use status: in withdrawal Qualified Code(s): F17.213 - Nicotine dependence, cigarettes, with withdrawal (5) HIV (human immunodeficiency virus infection) Current Visit: No Status: Chronic Comment: 2004 patient dose not have his medication upon admission with Cleared for Admission [facility] - Detox or Rehab [facility] Level of Care: Medically Managed Detox Regimen/Protocol: Librium [facility] Breath Alcohol Content Breath Alcohol Content: 0.030 Urine Drug Screen - Results Drug Screen Negative: No Urine Drug Screen Results: SHAGUFTA-Cocaine Inpatient Rehab Admission - Rehab Decision to Admit Inpatient rehab admission?: No
[2018-08-27] MEDS ORDERED: hydrOXYzine PAMOATE 50 MG CAPSULE (FP) PO PRN (21:56)
[2018-08-27] MEDS ORDERED: LOPERAMIDE HCL 2 MG CAPSULE PO PRN (21:56)
[2018-08-27] MEDS ORDERED: NICOTINE POLACRILEX 2 MG GUM BC PRN (21:56)
[2018-08-27] MEDS ORDERED: P-EPHED 60MG/TRIPROLIDI 2.5MG TABLET PO PRN (21:56)
[2018-08-27] MEDS ORDERED: chlordiazePOXIDE HCL 25 MG CAPSULE PO PRN (21:56)
[2018-08-27] MEDS ORDERED: MENTHOL/PHENOL 1 EACH UD MM PRN (21:56)
[2018-08-27] MEDS ORDERED: MAG HYDROX/AL HYDROX/SIMETH 30 ML UNIT-DOSE CUP PO PRN (21:56)
[2018-08-27] MEDS ORDERED: MAGNESIUM CITRATE 300 ML BOTTLE PO PRN (21:56)
[2018-08-27] MEDS ORDERED: guaiFENesin/D-METHORPHAN HB 10 ML UNIT-DOSE CUPS PO PRN (21:56)
[2018-08-27] MEDS ORDERED: ACETAMINOPHEN 325 MG TABLET (FP) PO PRN (21:56)
[2018-08-27] MEDS ORDERED: IBUPROFEN 400 MG TABLET (FP) PO PRN (21:56)
[2018-08-27] MEDS ORDERED: MAGNESIUM HYDROX 2400MG/30ML ORAL SUSPENSION 30 ML CUP PO PRN (21:56)
[2018-08-27] MEDS ORDERED: MELATONIN 5 MG TABLETS PO PRN (22:00)
[2018-08-27] MEDS ORDERED: chlordiazePOXIDE HCL 25 MG CAPSULE PO ONE (22:45)
[2018-08-28] MEDS: THIAMINE HCL 100 MG TABLET (FP) PO SCH ×2 (03:03→23:21)
[2018-08-28] MEDS: chlordiazePOXIDE HCL 25 MG CAPSULE PO SCH ×5 (03:05→23:21)
--- NOTE | 2018-08-28 10:38 | PN ---
S CIWA - CIWA Score Nausea/Vomitin-Mild Nausea/No Vomiting Muscle Tremors: 4-Moderate,w/Arms Extend Anxiety: 1-Mildly Anxious Agitation: 3 Paroxysmal Sweats: 2 Orientation: 1-Uncertain about Date Tacttile Disturbances: 0-None Auditory Disturbances: 0-None Visual Disturbances: 0-None Headache: 2-Mild CIWA-Ar Total Score: 14 [facility] Progress Note (SOAP) Subjective: tremor sweating restlessness social with peers in day room Objective: 08/28/18 10:38 Vital Signs Temperature 97.0 F L 08/28/18 09:22 Pulse Rate 94 H 08/28/18 09:22 Respiratory Rate 20 08/28/18 09:22 Blood Pressure 159/91 08/28/18 09:22 O2 Sat by Pulse Oximetry (%) 08/28/18 10:39 lab pending hypertension Assessment: 08/28/18 10:38 withdrawal sx Plan: continue detox
[2018-08-28] MEDS: PRENATAL VITAMINS W/ FOLIC ACID TABLET (FP) PO SCH (10:39)
[2018-08-28] MEDS: NICOTINE 14 MG/24 HOURS TOPICAL PATCH TD SCH (10:40)
[2018-08-28 10:52] LABS: HEMATOCRIT 38.2 % (35.4-49); HEMOGLOBIN 12.7 GM/dL (11.7-16.9); MCH 28.7 pg (25.7-33.7); MCHC 33.2 g/dl (32.0-35.9); MEAN CELL VOLUME 86.4 fl (80-96); MEAN PLT VOLUME 10.1 fl (7.5-11.1); PLATELET COUNT 133 K/MM3 (134-434); RBC 4.42 M/mm3 (4.00-5.60); RDW 15.9 % (11.9-15.9); WHITE BLOOD COUNT 6.6 K/mm3 (4.0-10.0)
[2018-08-28 11:08] LABS: ALBUMIN 3.6 g/dl (3.4-5.0); ALK PHOS 123 U/L (45-117); ANION GAP 8 MMOL/L (8-16); BILIRUBIN,TOTAL 0.5 mg/dL (0.2-1); BLOOD UREA NITROGEN 14 mg/dL (7-18); CALCIUM 8.8 mg/dL (8.5-10.1); CHLORIDE 105 mmol/L (98-107); CO2 27 mmol/L (21-32); GLUCOSE,RANDOM 100 mg/dL (74-106); POTASSIUM 3.9 mmol/L (3.5-5.1); SGOT/AST 36 U/L (15-37); SGPT/ALT 47 U/L (13-61); SODIUM 140 mmol/L (136-145); TOT PROT 7.2 g/dl (6.4-8.2)
--- NOTE | 2018-08-28 11:51 | CONSULT ---
[facility] Psychiatric Consult - Data Date of interview: 08/28/18 Admission source: [facility] Identifying data: This is one of multiple admissions to [facility] for this 57 y/ o AA male self-referred for detoxification (alcohol, cocaine). Examined on 3 . Patient is single without children, domiciled, unemployed and supported on welfare. Substance Abuse History: Discussed with patient. Mr Horta confirms this [facility] report as accurately reflecting his patterns of substance use : Smoking history : Current every day smoker. Have you smoked in the past 12 months: Yes. Aproximately how many cigarettes per day: 10. Cigars Per Day: 0. Hx Chewing Tobacco Use: No. Initiated information on smoking cessation: Yes. 'Breaking Loose' booklet given: 08/27/18. - Substance & Tx. History. Hx Alcohol Use: Yes. Hx Substance Use: Yes. Substance Use Type: Alcohol, Cocaine. Hx Substance Use Treatment: Yes. - Substances Abused. Alcohol. Route: Oral. Frequency: Daily. Amount used: BEER 2X6 PKS/LIQUOR 1 P/D. Age of first use: 15. Date of Last Use: 08/27/18. Crack. Route: Smoking. Frequency: 1-2 times per week. Amount used: $100/ONCE A WK. Age of first use: 27. Date of Last Use: 08/26/18 Medical History: Obseity and HIV infection since 2004 (on antiretroviral medications). Psychiatric History: Patient reports a history of five psychiatric hospitalizations (all at [facility]). Diagnosed with MDD and Anxiety Disorder. Mr Horta states that he is still prescribed celexa 30 mg /day. Gets his [facility]PD psychiatric care at the [facility] in [facility]. Patient denies history of suicide attempts. Physical/Sexual Abuse/Trauma History: No history. Additional Comment: Urine Drug Screen Results: SHAGUFTA-Cocaine. Noted. Mental Status Exam - Mental Status Exam Alert and Oriented to: Time, Place, Person Cognitive Function: Good Patient Appearance: Well Groomed (obese) Mood: Withdrawn Affect: Appropriate, Normal Range Patient Behavior: Fatigued, Cooperative Speech Pattern: Clear, Appropriate Voice Loudness: Normal Thought Process: Intact, Goal Oriented Thought Disorder: Not Present Hallucinations: Denies Suicidal Ideation: Denies Homicidal Ideation: Denies Insight/Judgement: Poor Sleep: Well Appetite: Good Muscle strength/Tone: Normal Gait/Station: Normal Psychiatric Findings - Problem List ([place] 1, 2,3) (1) Alcohol dependence with uncomplicated withdrawal Current Visit: Yes Status: Acute (2) Cocaine dependence Current Visit: Yes Status: Chronic (3) Nicotine dependence Current Visit: Yes Status: Chronic Qualifiers: Nicotine product type: cigarettes Substance use status: in withdrawal Qualified Code(s): F17.213 - Nicotine dependence, cigarettes, with withdrawal (4) Drug-induced mood disorder Current Visit: Yes Status: Chronic (5) Depressive disorder Current Visit: Yes Status: Chronic Comment: By history. - Initial Treatment Plan Initial Treatment Plan: Psychoeducation. Sleep hygiene. Detoxification. Contact made with [facility], [phone], for verification of medications (with patient's verbal authorization) : last refill for citalopram was issued in late 2017 + refill for mirtazapine 30 mg + topiramate 25 mg daily were issued on 08/14/17. Will resume citalopram 20 mg po daily (this is patient's request). Side effects/benefits discussed with the patient. Consent (verbal) given to MD. Observation.
[2018-08-28] MEDS: LISINOPRIL 10 MG TABLET (FP) PO SCH (13:47)
[2018-08-29] MEDS: chlordiazePOXIDE HCL 25 MG CAPSULE PO SCH ×3 (05:26→18:11)
[2018-08-29] MEDS: NICOTINE 14 MG/24 HOURS TOPICAL PATCH TD SCH (10:43)
[2018-08-29] MEDS: LISINOPRIL 10 MG TABLET (FP) PO SCH (10:43)
[2018-08-29] MEDS: PRENATAL VITAMINS W/ FOLIC ACID TABLET (FP) PO SCH (10:43)
--- NOTE | 2018-08-29 11:46 | PN ---
[facility] CIWA - CIWA Score Nausea/Vomitin-Mild Nausea/No Vomiting Muscle Tremors: 3 Anxiety: 2 Agitation: 2 Paroxysmal Sweats: 1-Minimal Palms Moist Orientation: 1-Uncertain about Date Tacttile Disturbances: 0-None Auditory Disturbances: 0-None Visual Disturbances: 0-None Headache: 1-Very Mild CIWA-Ar Total Score: 11 S Progress Note (SOAP) Subjective: tremor sweating anxiety restlessness Objective: 08/29/18 11:47 Vital Signs Temperature 97.9 F 08/29/18 09:53 Pulse Rate 89 08/29/18 09:53 Respiratory Rate 20 08/29/18 09:53 Blood Pressure 123/80 08/29/18 09:53 O2 Sat by Pulse Oximetry (%) Laboratory Last Values WBC 6.6 K/mm3 (4.0-10.0) 08/28/18 08:10 RBC 4.42 M/mm3 (4.00-5.60) 08/28/18 08:10 Hgb 12.7 GM/dL (11.7-16.9) 08/28/18 08:10 Hct 38.2 % (35.4-49) 08/28/18 08:10 MCV 86.4 fl (80-96) 08/28/18 08:10 MCH 28.7 pg (25.7-33.7) 08/28/18 08:10 MCHC 33.2 g/dl (32.0-35.9) 08/28/18 08:10 RDW 15.9 % (11.9-15.9) 08/28/18 08:10 Plt Count 133 K/MM3 (134-434) L D 08/28/18 08:10 MPV 10.1 fl (7.5-11.1) 08/28/18 08:10 Sodium 140 mmol/L (136-145) 08/28/18 08:10 Potassium 3.9 mmol/L (3.5-5.1) 08/28/18 08:10 Chloride 105 mmol/L (98-107) 08/28/18 08:10 Carbon Dioxide 27 mmol/L (21-32) 08/28/18 08:10 Anion Gap 8 MMOL/L (8-16) 08/28/18 08:10 BUN 14 mg/dL (7-18) 08/28/18 08:10 Creatinine 1.0 mg/dL (0.55-1.3) 08/28/18 08:10 Creat Clearance w eGFR > 60 (>60) 08/28/18 08:10 Random Glucose 100 mg/dL (74-106) 08/28/18 08:10 Calcium 8.8 mg/dL (8.5-10.1) 08/28/18 08:10 Total Bilirubin 0.5 mg/dL (0.2-1) 08/28/18 08:10 AST 36 U/L (15-37) 08/28/18 08:10 ALT 47 U/L (13-61) 08/28/18 08:10 Alkaline Phosphatase 123 U/L (45-117) H 08/28/18 08:10 Total Protein 7.2 g/dl (6.4-8.2) 08/28/18 08:10 Albumin 3.6 g/dl (3.4-5.0) 08/28/18 08:10 RPR Titer Nonreactive (NONREACTIVE) 08/28/18 08:10 lab noted Assessment: 08/29/18 11:47 withdrawal sx Plan: continue alcohol detox
[2018-08-29] MEDS: THIAMINE HCL 100 MG TABLET (FP) PO SCH (22:34)
[2018-08-29] MEDS: chlordiazePOXIDE 5 MG CAPSULE PO SCH (22:34)
[2018-08-30] MEDS: chlordiazePOXIDE 5 MG CAPSULE PO SCH ×3 (05:15→18:45)
--- NOTE | 2018-08-30 09:08 | PN ---
S CIWA - CIWA Score Nausea/Vomitin-Mild Nausea/No Vomiting Muscle Tremors: 3 Anxiety: 2 Agitation: 1-Slight > Activity Paroxysmal Sweats: 1-Minimal Palms Moist Orientation: 1-Uncertain about Date Tacttile Disturbances: 0-None Auditory Disturbances: 0-None Visual Disturbances: 0-None Headache: 0-None Present CIWA-Ar Total Score: 9 [facility] Progress Note (SOAP) Subjective: feeling nausea zofrain 4 mg x 1 now tremor sweating nausea able to tolerate fluid better than food Objective: 08/30/18 10:19 Vital Signs Temperature 96.9 F L 08/30/18 09:41 Pulse Rate 91 H 08/30/18 09:41 Respiratory Rate 18 08/30/18 09:41 Blood Pressure 127/83 08/30/18 09:41 O2 Sat by Pulse Oximetry (%) Laboratory Last Values WBC 6.6 K/mm3 (4.0-10.0) 08/28/18 08:10 RBC 4.42 M/mm3 (4.00-5.60) 08/28/18 08:10 Hgb 12.7 GM/dL (11.7-16.9) 08/28/18 08:10 Hct 38.2 % (35.4-49) 08/28/18 08:10 MCV 86.4 fl (80-96) 08/28/18 08:10 MCH 28.7 pg (25.7-33.7) 08/28/18 08:10 MCHC 33.2 g/dl (32.0-35.9) 08/28/18 08:10 RDW 15.9 % (11.9-15.9) 08/28/18 08:10 Plt Count 133 K/MM3 (134-434) L D 08/28/18 08:10 MPV 10.1 fl (7.5-11.1) 08/28/18 08:10 Sodium 140 mmol/L (136-145) 08/28/18 08:10 Potassium 3.9 mmol/L (3.5-5.1) 08/28/18 08:10 Chloride 105 mmol/L (98-107) 08/28/18 08:10 Carbon Dioxide 27 mmol/L (21-32) 08/28/18 08:10 Anion Gap 8 MMOL/L (8-16) 08/28/18 08:10 BUN 14 mg/dL (7-18) 08/28/18 08:10 Creatinine 1.0 mg/dL (0.55-1.3) 08/28/18 08:10 Creat Clearance w eGFR > 60 (>60) 08/28/18 08:10 Random Glucose 100 mg/dL (74-106) 08/28/18 08:10 Calcium 8.8 mg/dL (8.5-10.1) 08/28/18 08:10 Total Bilirubin 0.5 mg/dL (0.2-1) 08/28/18 08:10 AST 36 U/L (15-37) 08/28/18 08:10 ALT 47 U/L (13-61) 08/28/18 08:10 Alkaline Phosphatase 123 U/L (45-117) H 08/28/18 08:10 Total Protein 7.2 g/dl (6.4-8.2) 08/28/18 08:10 Albumin 3.6 g/dl (3.4-5.0) 08/28/18 08:10 RPR Titer Nonreactive (NONREACTIVE) 08/28/18 08:10 lab noted Assessment: 08/30/18 10:19 withdrawal sx nausea Plan: continue detox zofran 4 mg x 1
[2018-08-30] MEDS ORDERED: ONDANSETRON *ODT* 4 MG TABLET SL ONE (09:24)
[2018-08-30] MEDS: LISINOPRIL 10 MG TABLET (FP) PO SCH (10:33)
[2018-08-30] MEDS: PRENATAL VITAMINS W/ FOLIC ACID TABLET (FP) PO SCH (10:33)
[2018-08-30] MEDS: NICOTINE 14 MG/24 HOURS TOPICAL PATCH TD SCH (10:35)
[2018-08-30] MEDS: chlordiazePOXIDE HCL 10 MG CAPSULE PO SCH (22:24)
[2018-08-30] MEDS: THIAMINE HCL 100 MG TABLET (FP) PO SCH (22:24)
[2018-08-31] MEDS: chlordiazePOXIDE HCL 10 MG CAPSULE PO SCH ×2 (06:37→10:26)
[2018-08-31 09:17] VITALS: BP 125/78; PULSE 90; TEMP 96.8
[2018-08-31] MEDS: LISINOPRIL 10 MG TABLET (FP) PO SCH (10:26)
[2018-08-31] MEDS: NICOTINE 14 MG/24 HOURS TOPICAL PATCH TD SCH (10:26)
[2018-08-31] MEDS: PRENATAL VITAMINS W/ FOLIC ACID TABLET (FP) PO SCH (10:26)
--- NOTE | 2018-08-31 18:47 | DS ---
[facility] Detox Discharge Summary Admission Date: 08/27/18 Discharge Date: 08/31/18 - History Present History: Alcohol Dependence, Cocaine Dependence Additional Comments: PATIENT GOING TO [facility] ([place], [place]) FOR AFTERCARE. PATIENT WAS DISCHARGED FROM DETOX UNIT IN STABLE MEDICAL CONDITION. Pertinent Past History: Nicotine Dependence, H.I.V., Depressive Disorder, Anxiety, Thrombocytopenia. - Physical Exam Results Vital Signs: Vital Signs Temperature 96.8 F L 08/31/18 09:15 Pulse Rate 90 08/31/18 09:15 Respiratory Rate 18 08/31/18 09:15 Blood Pressure 125/78 08/31/18 09:15 O2 Sat by Pulse Oximetry (%) Pertinent Admission Physical Exam Findings: WITHDRAWAL SYMPTOMS. Laboratory Tests 08/28/18 08/28/18 08/28/18 08:10 08:10 08:10 WBC 6.6 RBC 4.42 Hgb 12.7 Hct 38.2 MCV 86.4 MCH 28.7 MCHC 33.2 RDW 15.9 Plt Count 133 L D MPV 10.1 Sodium 140 Potassium 3.9 Chloride 105 Carbon Dioxide 27 Anion Gap 8 BUN 14 Creatinine 1.0 Creat Clearance w eGFR > 60 Random Glucose 100 Calcium 8.8 Total Bilirubin 0.5 AST 36 ALT 47 Alkaline Phosphatase 123 H Total Protein 7.2 Albumin 3.6 RPR Titer Nonreactive LABS NOTED. - Treatment Hospital Course: Detox Protocol Followed, Detoxed Safely, Responded well, Discharged Condition Good Patient has Accepted a Rehab Referral to: PT. GOING TO [facility] ( [place], [place]) FOR AFTERCARE. - Medication Discharge Medications: Ambulatory Orders Elviteg/Cob/Emtri/Tenof Alafen [Genvoya (Non-Formulary)] 1 each PO DAILY Citalopram Hydrobromide [Celexa -] 30 mg PO DAILY #90 tablet 11/27/17 - Diagnosis (1) Alcohol dependence with uncomplicated withdrawal Status: Acute (2) Thrombocytopenia Status: Acute (3) Cocaine dependence, uncomplicated Status: Chronic (4) HIV (human immunodeficiency virus infection) Status: Chronic Qualifiers: HIV symptom status: unspecified Qualified Code(s): B20 - Human immunodeficiency virus [HIV] disease (5) MDD (major depressive disorder) Status: Chronic Qualifiers: Major depression recurrence: unspecified whether recurrent Active/ Remission status: remission status unspecified Qualified Code(s): F32.9 - Major depressive disorder, single episode, unspecified (6) Nicotine dependence Status: Chronic Qualifiers: Nicotine product type: cigarettes Substance use status: in withdrawal Qualified Code(s): F17.213 - Nicotine dependence, cigarettes, with withdrawal (7) Anxiety and depression Status: Chronic (8) Depressive disorder Status: Chronic (9) Drug-induced mood disorder Status: Chronic - AMA Did Patient Leave Against Medical Advice: No
== END 2018-08-31 11:39 | disposition home or self-care (01) | DRG 774 ==
LOC: YASAS 17:00 → Y3N 23:34
PROVIDERS: ADMIT Surgery; ATTEND Surgery
PROC: HZ2ZZZZ Detoxification Services for Substance Abuse Treatment (ICD-10-PCS; principal; 2018-08-27)
DX: F10.230 Alcohol dependence with withdrawal, uncomplicated (principal); F14.20 Cocaine dependence, uncomplicated; F17.210 Nicotine dependence, cigarettes, uncomplicated; F19.24 Other psychoactive substance dependence with psychoactive substance-induced mood disorder; F41.8 Other specified anxiety disorders; F32.9 Major depressive disorder, single episode, unspecified; Z21 Asymptomatic human immunodeficiency virus [HIV] infection status; D69.6 Thrombocytopenia, unspecified; E66.9 Obesity, unspecified; Z68.35 Body mass index [BMI] 35.0-35.9, adult
CPT/HCPCS: 36415; 80053; 85027; 86593; Q0162

== ENCOUNTER 2020-12-18 14:10 | Inpatient (IN) | payer OTHER ==
[2020-12-18 17:30] VITALS: BMI 37.3
[2020-12-18] MEDS ORDERED: ONDANSETRON *ODT* 4 MG TABLET SL PRN (17:47)
[2020-12-18] MEDS ORDERED: MAGNESIUM HYDROX 2400MG/30ML ORAL SUSPENSION 30 ML CUP PO PRN (17:47)
[2020-12-18] MEDS ORDERED: ACETAMINOPHEN 325 MG TABLET (FP) PO PRN ×2 (17:47)
[2020-12-18] MEDS ORDERED: MENTHOL/PHENOL 1 EACH UD MM PRN (17:47)
[2020-12-18] MEDS ORDERED: METHOCARBAMOL 500 MG TABLET PO PRN (17:47)
[2020-12-18] MEDS ORDERED: IBUPROFEN 400 MG TABLET (FP) PO PRN (17:47)
[2020-12-18] MEDS ORDERED: MAGNESIUM CITRATE 300 ML BOTTLE PO PRN (17:47)
[2020-12-18] MEDS ORDERED: MAG HYDROX/AL HYDROX/SIMETH 30 ML UNIT-DOSE CUP PO PRN (17:47)
[2020-12-18] MEDS ORDERED: BISMUTH SUBSALICYLATE 524 MG/30 ML PO PRN (17:47)
[2020-12-18] MEDS ORDERED: diazePAM 5 MG TABLET PO PRN (17:51)
[2020-12-18] MEDS ORDERED: diazePAM 5 MG TABLET PO ONE (17:51)
[2020-12-18] MEDS: ELVITEG/COB/EMTRI/TENOF (GENVOYA) TABLET (NF) PO SCH (18:27)
[2020-12-18] MEDS: THIAMINE HCL 100 MG TABLET (FP) PO SCH (23:01)
[2020-12-18] MEDS: diazePAM 5 MG TABLET PO SCH (23:01)
[2020-12-18] MEDS: MELATONIN 5 MG TABLETS PO SCH (23:02)
[2020-12-19] MEDS: diazePAM 5 MG TABLET PO SCH ×4 (05:12→22:08)
[2020-12-19] MEDS: ELVITEG/COB/EMTRI/TENOF (GENVOYA) TABLET (NF) PO SCH (07:46)
[2020-12-19] MEDS: HYDROCHLOROTHIAZIDE 12.5 MG CAPSULE (FP) PO SCH (10:33)
[2020-12-19] MEDS: PRENATAL VITAMINS W/ FOLIC ACID TABLET (FP) PO SCH (10:33)
[2020-12-19 11:21] LABS: HEMATOCRIT 23.6 % (35.4-49); HEMOGLOBIN 7.2 GM/dL (11.7-16.9); MCH 21.9 pg (25.7-33.7); MCHC 30.7 g/dl (32.0-35.9); MEAN CELL VOLUME 71.4 fl (80-96); MEAN PLT VOLUME 9.6 fl (7.5-11.1); PLATELET COUNT 99 K/MM3 (134-434); RBC 3.31 M/mm3 (4.00-5.60); RDW 22.8 % (11.9-15.9); WHITE BLOOD COUNT 5.7 K/mm3 (4.0-10.0)
[2020-12-19 11:35] LABS: CALCIUM 8.9 mg/dL (8.5-10.1)
[2020-12-19 11:36] LABS: ALBUMIN 3.3 g/dl (3.4-5.0); BLOOD UREA NITROGEN 6.4 mg/dL (7-18)
[2020-12-19 11:39] LABS: CREATININE 0.8 mg/dL (0.55-1.3)
[2020-12-19 11:41] LABS: TOT PROT 7.3 g/dl (6.4-8.2)
[2020-12-19 11:43] LABS: BILIRUBIN,TOTAL 0.8 mg/dL (0.2-1)
[2020-12-19] MEDS: THIAMINE HCL 100 MG TABLET (FP) PO SCH (22:08)
[2020-12-19] MEDS: MELATONIN 5 MG TABLETS PO SCH (22:09)
[2020-12-20] MEDS: hydrOXYzine PAMOATE 25 MG CAPSULE (FP) PO PRN ×2 (03:45→22:28)
[2020-12-20] MEDS: diazePAM 5 MG TABLET PO SCH ×3 (05:49→23:00)
[2020-12-20] MEDS: ELVITEG/COB/EMTRI/TENOF (GENVOYA) TABLET (NF) PO SCH (08:22)
[2020-12-20] MEDS: HYDROCHLOROTHIAZIDE 12.5 MG CAPSULE (FP) PO SCH (10:44)
[2020-12-20] MEDS: PRENATAL VITAMINS W/ FOLIC ACID TABLET (FP) PO SCH (10:44)
[2020-12-20] MEDS: THIAMINE HCL 100 MG TABLET (FP) PO SCH (22:28)
[2020-12-20] MEDS: MELATONIN 5 MG TABLETS PO SCH (22:28)
[2020-12-21] MEDS: diazePAM 5 MG TABLET PO SCH ×2 (07:01→19:03)
[2020-12-21] MEDS: ELVITEG/COB/EMTRI/TENOF (GENVOYA) TABLET (NF) PO SCH (07:01)
[2020-12-21] MEDS: HYDROCHLOROTHIAZIDE 12.5 MG CAPSULE (FP) PO SCH (10:20)
[2020-12-21] MEDS: PRENATAL VITAMINS W/ FOLIC ACID TABLET (FP) PO SCH (10:20)
[2020-12-21 10:23] LABS: BASO % 0.7 % (0-2.0); EOS % 2.4 % (0-4.5); HEMATOCRIT 25.7 % (35.4-49); HEMOGLOBIN 7.9 GM/dL (11.7-16.9); LYMPH % 15.4 % (8-40); MCH 22.2 pg (25.7-33.7); MCHC 30.7 g/dl (32.0-35.9); MEAN CELL VOLUME 72.3 fl (80-96); MEAN PLT VOLUME 9.1 fl (7.5-11.1); MONO % 7.2 % (3.8-10.2); NEUT % 74.3 % (42.8-82.8); PLATELET COUNT 118 K/MM3 (134-434); RBC 3.55 M/mm3 (4.00-5.60); RDW 22.4 % (11.9-15.9); WHITE BLOOD COUNT 6.3 K/mm3 (4.0-10.0)
[2020-12-21] MEDS: TRIAMCINOLONE ACET 0.1% CREAM 15 GM TUBE TP SCH ×2 (13:20→22:41)
[2020-12-21] MEDS: MELATONIN 5 MG TABLETS PO SCH (22:40)
[2020-12-21] MEDS: THIAMINE HCL 100 MG TABLET (FP) PO SCH (22:40)
[2020-12-22] MEDS ORDERED: diazePAM 5 MG TABLET PO ONE (06:00)
[2020-12-22] MEDS: ELVITEG/COB/EMTRI/TENOF (GENVOYA) TABLET (NF) PO SCH (07:42)
[2020-12-22] MEDS ORDERED: FERROUS SO4 325 MG TABLET (FP) PO SCH (10:00)
[2020-12-22] MEDS: PRENATAL VITAMINS W/ FOLIC ACID TABLET (FP) PO SCH (10:50)
[2020-12-22] MEDS: TRIAMCINOLONE ACET 0.1% CREAM 15 GM TUBE TP SCH (10:50)
[2020-12-22] MEDS: HYDROCHLOROTHIAZIDE 12.5 MG CAPSULE (FP) PO SCH (10:59)
[2020-12-22 12:46] VITALS: BP 99/52; PULSE 91; TEMP 97.3
== END 2020-12-22 13:38 | disposition other institution (70) | DRG 774 ==
LOC: YASAS 14:10 → Y6N 18:13
PROVIDERS: ADMIT Allergy & Immunology; ATTEND Allergy & Immunology
PROC: HZ2ZZZZ Detoxification Services for Substance Abuse Treatment (ICD-10-PCS; principal; 2020-12-18)
DX: F10.230 Alcohol dependence with withdrawal, uncomplicated (principal); F14.20 Cocaine dependence, uncomplicated; F17.210 Nicotine dependence, cigarettes, uncomplicated; F41.9 Anxiety disorder, unspecified; Z21 Asymptomatic human immunodeficiency virus [HIV] infection status; D64.9 Anemia, unspecified
CPT/HCPCS: 36415; 80053; 82962; 85025; 85027; 86780; C9803; U0003; U0005

== ENCOUNTER 2020-12-22 12:18 | Inpatient (IN) | payer OTHER ==
[2020-12-22] MEDS ORDERED: ACETAMINOPHEN 325 MG TABLET (FP) PO PRN (13:42)
[2020-12-22] MEDS ORDERED: LOPERAMIDE HCL 2 MG CAPSULE PO PRN (13:42)
[2020-12-22] MEDS ORDERED: IBUPROFEN 400 MG TABLET (FP) PO PRN (13:42)
[2020-12-22] MEDS ORDERED: guaiFENesin 200 MG/10 ML 10 ML UNIT-DOSE CUPS PO PRN (13:42)
[2020-12-22] MEDS ORDERED: P-EPHED 60MG/TRIPROLIDI 2.5MG TABLET PO PRN (13:42)
[2020-12-22] MEDS ORDERED: MAGNESIUM HYDROX 2400MG/30ML ORAL SUSPENSION 30 ML CUP PO PRN (13:42)
[2020-12-22] MEDS ORDERED: MAGNESIUM CITRATE 300 ML BOTTLE PO PRN (13:42)
[2020-12-22] MEDS ORDERED: MAG HYDROX/AL HYDROX/SIMETH 30 ML UNIT-DOSE CUP PO PRN (13:42)
[2020-12-22] MEDS ORDERED: NICOTINE POLACRILEX 2 MG GUM BUC PRN (13:42)
[2020-12-22] MEDS ORDERED: ERGOCALCIFEROL (VIT D2) 50,000 UNIT (1.25 MG) CAPSULE PO SCH (13:45)
[2020-12-22] MEDS: hydrOXYzine PAMOATE 25 MG CAPSULE (FP) PO SCH ×3 (15:02→21:33)
[2020-12-22] MEDS: THIAMINE HCL 100 MG TABLET (FP) PO SCH (21:31)
[2020-12-22] MEDS: MELATONIN 5 MG TABLETS PO SCH (21:31)
[2020-12-22] MEDS: TRIAMCINOLONE ACET 0.1% CREAM 15 GM TUBE TP SCH (21:32)
[2020-12-22] MEDS: FERROUS SO4 325 MG TABLET (FP) PO SCH (21:32)
[2020-12-23] MEDS: hydrOXYzine PAMOATE 25 MG CAPSULE (FP) PO SCH (06:49)
[2020-12-23] MEDS: ELVITEG/COB/EMTRI/TENOF (GENVOYA) TABLET (NF) PO SCH (07:07)
[2020-12-23] MEDS ORDERED: hydrOXYzine PAMOATE 50 MG CAPSULE (FP) PO PRN (09:51)
[2020-12-23] MEDS ORDERED: NICOTINE 7 MG/24 HOURS TOPICAL PATCH TD SCH (10:00)
[2020-12-23] MEDS: PRENATAL VITAMINS W/ FOLIC ACID TABLET (FP) PO SCH (10:42)
[2020-12-23] MEDS: NICOTINE 7 MG/24 HOURS TOPICAL PATCH TD SCH (10:43)
[2020-12-23] MEDS: FERROUS SO4 325 MG TABLET (FP) PO SCH ×2 (10:43→21:10)
[2020-12-23] MEDS: HYDROCHLOROTHIAZIDE 12.5 MG CAPSULE (FP) PO SCH (10:43)
[2020-12-23] MEDS: TRIAMCINOLONE ACET 0.1% CREAM 15 GM TUBE TP SCH ×2 (10:44→21:12)
[2020-12-23] MEDS: CITALOPRAM HYDROBROMIDE 10 MG TABLET PO SCH (10:44)
[2020-12-23] MEDS ORDERED: PT OWN MED DRAWER 7, Y5N ONE (14:11)
[2020-12-23] MEDS ORDERED: MASKS NR ONE (16:37)
[2020-12-23] MEDS: THIAMINE HCL 100 MG TABLET (FP) PO SCH (21:10)
[2020-12-23] MEDS: MELATONIN 5 MG TABLETS PO SCH (21:10)
[2020-12-24] MEDS: ELVITEG/COB/EMTRI/TENOF (GENVOYA) TABLET (NF) PO SCH (08:50)
[2020-12-24 10:26] LABS: PH,URINE 5.5 (5.0-8.0); URINE APPEARANCE CLEAR; URINE BILIRUBIN NEGATIVE (NEGATIVE); URINE COLOR YELLOW; URINE GLUCOSE (UA) NEGATIVE (NEGATIVE); URINE KETONE NEGATIVE (NEGATIVE); URINE LEUK ESTERASE NEGATIVE (NEGATIVE); URINE NITRITE NEGATIVE (NEGATIVE); URINE PROTEIN NEGATIVE (NEGATIVE); URINE UROBILINOGEN 0.2 mg/dL (0.2-1.0)
[2020-12-24] MEDS: TRIAMCINOLONE ACET 0.1% CREAM 15 GM TUBE TP SCH ×2 (10:47→21:40)
[2020-12-24] MEDS: PRENATAL VITAMINS W/ FOLIC ACID TABLET (FP) PO SCH (10:51)
[2020-12-24] MEDS: HYDROCHLOROTHIAZIDE 12.5 MG CAPSULE (FP) PO SCH (10:52)
[2020-12-24] MEDS: FERROUS SO4 325 MG TABLET (FP) PO SCH ×2 (10:52→21:39)
[2020-12-24] MEDS: CITALOPRAM HYDROBROMIDE 10 MG TABLET PO SCH (10:52)
[2020-12-24] MEDS: ERGOCALCIFEROL (VIT D2) 50,000 UNIT (1.25 MG) CAPSULE PO SCH (10:53)
[2020-12-24] MEDS: NICOTINE 7 MG/24 HOURS TOPICAL PATCH TD SCH (10:54)
[2020-12-24] MEDS: MELATONIN 5 MG TABLETS PO SCH (21:39)
[2020-12-24] MEDS: THIAMINE HCL 100 MG TABLET (FP) PO SCH (21:40)
[2020-12-25] MEDS: ELVITEG/COB/EMTRI/TENOF (GENVOYA) TABLET (NF) PO SCH (08:54)
[2020-12-25] MEDS: HYDROCHLOROTHIAZIDE 12.5 MG CAPSULE (FP) PO SCH (09:54)
[2020-12-25] MEDS: FERROUS SO4 325 MG TABLET (FP) PO SCH ×2 (09:54→21:13)
[2020-12-25] MEDS: PRENATAL VITAMINS W/ FOLIC ACID TABLET (FP) PO SCH (09:54)
[2020-12-25] MEDS: CITALOPRAM HYDROBROMIDE 10 MG TABLET PO SCH (09:55)
[2020-12-25] MEDS: TRIAMCINOLONE ACET 0.1% CREAM 15 GM TUBE TP SCH ×2 (09:55→21:13)
[2020-12-25] MEDS: NICOTINE 7 MG/24 HOURS TOPICAL PATCH TD SCH (09:55)
[2020-12-25] MEDS: THIAMINE HCL 100 MG TABLET (FP) PO SCH (21:13)
[2020-12-25] MEDS: MELATONIN 5 MG TABLETS PO SCH (21:13)
[2020-12-26] MEDS: ELVITEG/COB/EMTRI/TENOF (GENVOYA) TABLET (NF) PO SCH (09:06)
[2020-12-26] MEDS: HYDROCHLOROTHIAZIDE 12.5 MG CAPSULE (FP) PO SCH (09:07)
[2020-12-26] MEDS: FERROUS SO4 325 MG TABLET (FP) PO SCH ×2 (09:46→22:11)
[2020-12-26] MEDS: CITALOPRAM HYDROBROMIDE 10 MG TABLET PO SCH (09:46)
[2020-12-26] MEDS: PRENATAL VITAMINS W/ FOLIC ACID TABLET (FP) PO SCH (09:47)
[2020-12-26] MEDS: NICOTINE 7 MG/24 HOURS TOPICAL PATCH TD SCH (09:47)
[2020-12-26] MEDS: TRIAMCINOLONE ACET 0.1% CREAM 15 GM TUBE TP SCH ×2 (09:47→22:12)
[2020-12-26] MEDS: THIAMINE HCL 100 MG TABLET (FP) PO SCH (22:11)
[2020-12-26] MEDS: MELATONIN 5 MG TABLETS PO SCH (22:11)
[2020-12-27] MEDS: ELVITEG/COB/EMTRI/TENOF (GENVOYA) TABLET (NF) PO SCH (09:04)
[2020-12-27] MEDS: FERROUS SO4 325 MG TABLET (FP) PO SCH ×2 (10:07→21:16)
[2020-12-27] MEDS: HYDROCHLOROTHIAZIDE 12.5 MG CAPSULE (FP) PO SCH (10:07)
[2020-12-27] MEDS: NICOTINE 7 MG/24 HOURS TOPICAL PATCH TD SCH (10:07)
[2020-12-27] MEDS: TRIAMCINOLONE ACET 0.1% CREAM 15 GM TUBE TP SCH ×2 (10:07→21:16)
[2020-12-27] MEDS: PRENATAL VITAMINS W/ FOLIC ACID TABLET (FP) PO SCH (10:07)
[2020-12-27] MEDS: CITALOPRAM HYDROBROMIDE 10 MG TABLET PO SCH (10:07)
[2020-12-27] MEDS: THIAMINE HCL 100 MG TABLET (FP) PO SCH (21:16)
[2020-12-27] MEDS: MELATONIN 5 MG TABLETS PO SCH (21:16)
[2020-12-28] MEDS: ELVITEG/COB/EMTRI/TENOF (GENVOYA) TABLET (NF) PO SCH (08:10)
[2020-12-28] MEDS: HYDROCHLOROTHIAZIDE 12.5 MG CAPSULE (FP) PO SCH (10:09)
[2020-12-28] MEDS: FERROUS SO4 325 MG TABLET (FP) PO SCH ×2 (10:10→21:32)
[2020-12-28] MEDS: NICOTINE 7 MG/24 HOURS TOPICAL PATCH TD SCH (10:11)
[2020-12-28] MEDS: PRENATAL VITAMINS W/ FOLIC ACID TABLET (FP) PO SCH (10:11)
[2020-12-28] MEDS: TRIAMCINOLONE ACET 0.1% CREAM 15 GM TUBE TP SCH ×2 (10:11→21:32)
[2020-12-28] MEDS: CITALOPRAM HYDROBROMIDE 10 MG TABLET PO SCH (10:11)
[2020-12-28] MEDS: THIAMINE HCL 100 MG TABLET (FP) PO SCH (21:32)
[2020-12-28] MEDS: MELATONIN 5 MG TABLETS PO SCH (21:32)
[2020-12-29] MEDS: ELVITEG/COB/EMTRI/TENOF (GENVOYA) TABLET (NF) PO SCH (08:50)
[2020-12-29] MEDS: PRENATAL VITAMINS W/ FOLIC ACID TABLET (FP) PO SCH (10:04)
[2020-12-29] MEDS: CITALOPRAM HYDROBROMIDE 10 MG TABLET PO SCH (10:04)
[2020-12-29] MEDS: HYDROCHLOROTHIAZIDE 12.5 MG CAPSULE (FP) PO SCH (10:04)
[2020-12-29] MEDS: FERROUS SO4 325 MG TABLET (FP) PO SCH ×2 (10:04→21:20)
[2020-12-29] MEDS: TRIAMCINOLONE ACET 0.1% CREAM 15 GM TUBE TP SCH ×2 (10:05→21:21)
[2020-12-29] MEDS: NICOTINE 7 MG/24 HOURS TOPICAL PATCH TD SCH (10:05)
[2020-12-29] MEDS ORDERED: HYDROCORTISONE 0.5% TOPICAL OINTMENT TUBE TP SCH (16:15)
[2020-12-29] MEDS: THIAMINE HCL 100 MG TABLET (FP) PO SCH (21:20)
[2020-12-29] MEDS: MELATONIN 5 MG TABLETS PO SCH (21:20)
[2020-12-30] MEDS: PRENATAL VITAMINS W/ FOLIC ACID TABLET (FP) PO SCH (09:14)
[2020-12-30] MEDS: FERROUS SO4 325 MG TABLET (FP) PO SCH ×2 (09:14→21:09)
[2020-12-30] MEDS: HYDROCHLOROTHIAZIDE 12.5 MG CAPSULE (FP) PO SCH (09:14)
[2020-12-30] MEDS: CITALOPRAM HYDROBROMIDE 10 MG TABLET PO SCH (09:14)
[2020-12-30] MEDS: NICOTINE 7 MG/24 HOURS TOPICAL PATCH TD SCH (09:15)
[2020-12-30] MEDS: TRIAMCINOLONE ACET 0.1% CREAM 15 GM TUBE TP SCH ×2 (09:15→21:09)
[2020-12-30] MEDS: ELVITEG/COB/EMTRI/TENOF (GENVOYA) TABLET (NF) PO SCH (09:15)
[2020-12-30] MEDS ORDERED: HYDROCORTISONE 0.5% TOPICAL OINTMENT TUBE TP PRN (11:11)
[2020-12-30] MEDS: MELATONIN 5 MG TABLETS PO SCH (21:09)
[2020-12-30] MEDS: THIAMINE HCL 100 MG TABLET (FP) PO SCH (21:09)
[2020-12-31] MEDS: ELVITEG/COB/EMTRI/TENOF (GENVOYA) TABLET (NF) PO SCH (09:00)
[2020-12-31] MEDS: HYDROCHLOROTHIAZIDE 12.5 MG CAPSULE (FP) PO SCH (09:06)
[2020-12-31] MEDS: NICOTINE 7 MG/24 HOURS TOPICAL PATCH TD SCH (09:06)
[2020-12-31] MEDS: PRENATAL VITAMINS W/ FOLIC ACID TABLET (FP) PO SCH (09:06)
[2020-12-31] MEDS: CITALOPRAM HYDROBROMIDE 10 MG TABLET PO SCH (09:06)
[2020-12-31] MEDS: HYDROCORTISONE 0.5% TOPICAL CREAM 30 GM TUBE TP PRN (09:07)
[2020-12-31] MEDS: TRIAMCINOLONE ACET 0.1% CREAM 15 GM TUBE TP SCH ×2 (09:07→21:25)
[2020-12-31] MEDS: FERROUS SO4 325 MG TABLET (FP) PO SCH ×2 (09:07→21:25)
[2020-12-31] MEDS: ERGOCALCIFEROL (VIT D2) 50,000 UNIT (1.25 MG) CAPSULE PO SCH (09:07)
[2020-12-31] MEDS: THIAMINE HCL 100 MG TABLET (FP) PO SCH (21:25)
[2020-12-31] MEDS: MELATONIN 5 MG TABLETS PO SCH (21:25)
[2021-01-01] MEDS: ELVITEG/COB/EMTRI/TENOF (GENVOYA) TABLET (NF) PO SCH (08:30)
[2021-01-01 10:12] LABS: BASO % 0.9 % (0-2.0); EOS % 2.6 % (0-4.5); HEMATOCRIT 29.9 % (35.4-49); HEMOGLOBIN 8.8 GM/dL (11.7-16.9); LYMPH % 17.9 % (8-40); MCH 21.4 pg (25.7-33.7); MCHC 29.5 g/dl (32.0-35.9); MEAN CELL VOLUME 72.7 fl (80-96); MEAN PLT VOLUME 10.6 fl (7.5-11.1); MONO % 5.2 % (3.8-10.2); NEUT % 73.4 % (42.8-82.8); PLATELET COUNT 220 10^3/uL (134-434); RBC 4.11 M/mm3 (4.00-5.60); RDW 21.2 % (11.9-15.9); WHITE BLOOD COUNT 6.6 K/mm3 (4.0-10.0)
[2021-01-01] MEDS: PRENATAL VITAMINS W/ FOLIC ACID TABLET (FP) PO SCH (10:30)
[2021-01-01] MEDS: HYDROCHLOROTHIAZIDE 12.5 MG CAPSULE (FP) PO SCH (10:31)
[2021-01-01] MEDS: TRIAMCINOLONE ACET 0.1% CREAM 15 GM TUBE TP SCH ×2 (10:31→21:16)
[2021-01-01] MEDS: FERROUS SO4 325 MG TABLET (FP) PO SCH ×2 (10:31→21:16)
[2021-01-01] MEDS: CITALOPRAM HYDROBROMIDE 10 MG TABLET PO SCH (10:31)
[2021-01-01] MEDS: NICOTINE 7 MG/24 HOURS TOPICAL PATCH TD SCH (10:31)
[2021-01-01 12:25] LABS: ANISOCYTOSIS 1+; MACROCYTOSIS 0; OVALOCYTE 1+; PLATELET ESTIMATE NORMAL; TEAR DROP CELLS 1+
[2021-01-01] MEDS: MELATONIN 5 MG TABLETS PO SCH (21:15)
[2021-01-01] MEDS: THIAMINE HCL 100 MG TABLET (FP) PO SCH (21:15)
[2021-01-02] MEDS: ELVITEG/COB/EMTRI/TENOF (GENVOYA) TABLET (NF) PO SCH (08:16)
[2021-01-02] MEDS: TRIAMCINOLONE ACET 0.1% CREAM 15 GM TUBE TP SCH ×2 (10:16→21:32)
[2021-01-02] MEDS: PRENATAL VITAMINS W/ FOLIC ACID TABLET (FP) PO SCH (10:16)
[2021-01-02] MEDS: FERROUS SO4 325 MG TABLET (FP) PO SCH ×2 (10:16→21:32)
[2021-01-02] MEDS: HYDROCHLOROTHIAZIDE 12.5 MG CAPSULE (FP) PO SCH (10:16)
[2021-01-02] MEDS: CITALOPRAM HYDROBROMIDE 10 MG TABLET PO SCH (10:17)
[2021-01-02] MEDS: NICOTINE 7 MG/24 HOURS TOPICAL PATCH TD SCH (10:17)
[2021-01-02] MEDS: MELATONIN 5 MG TABLETS PO SCH (21:32)
[2021-01-02] MEDS: THIAMINE HCL 100 MG TABLET (FP) PO SCH (21:32)
[2021-01-03] MEDS: CITALOPRAM HYDROBROMIDE 10 MG TABLET PO SCH (10:03)
[2021-01-03] MEDS: HYDROCHLOROTHIAZIDE 12.5 MG CAPSULE (FP) PO SCH (10:03)
[2021-01-03] MEDS: FERROUS SO4 325 MG TABLET (FP) PO SCH ×2 (10:03→21:17)
[2021-01-03] MEDS: NICOTINE 7 MG/24 HOURS TOPICAL PATCH TD SCH (10:03)
[2021-01-03] MEDS: HYDROCORTISONE 0.5% TOPICAL CREAM 30 GM TUBE TP PRN (10:03)
[2021-01-03] MEDS: PRENATAL VITAMINS W/ FOLIC ACID TABLET (FP) PO SCH (10:03)
[2021-01-03] MEDS: ELVITEG/COB/EMTRI/TENOF (GENVOYA) TABLET (NF) PO SCH (10:04)
[2021-01-03] MEDS: TRIAMCINOLONE ACET 0.1% CREAM 15 GM TUBE TP SCH ×2 (10:04→21:18)
[2021-01-03] MEDS: THIAMINE HCL 100 MG TABLET (FP) PO SCH (21:17)
[2021-01-03] MEDS: MELATONIN 5 MG TABLETS PO SCH (21:17)
[2021-01-04] MEDS ORDERED: COLLOIDAL OATMEAL 1 BAR EACH TP PRN (09:04)
[2021-01-04] MEDS: ELVITEG/COB/EMTRI/TENOF (GENVOYA) TABLET (NF) PO SCH (10:15)
[2021-01-04] MEDS: PRENATAL VITAMINS W/ FOLIC ACID TABLET (FP) PO SCH (10:16)
[2021-01-04] MEDS: CITALOPRAM HYDROBROMIDE 10 MG TABLET PO SCH (10:16)
[2021-01-04] MEDS: HYDROCHLOROTHIAZIDE 12.5 MG CAPSULE (FP) PO SCH (10:16)
[2021-01-04] MEDS: NICOTINE 7 MG/24 HOURS TOPICAL PATCH TD SCH (10:16)
[2021-01-04] MEDS: FERROUS SO4 325 MG TABLET (FP) PO SCH ×2 (10:16→21:30)
[2021-01-04] MEDS: TRIAMCINOLONE ACET 0.1% CREAM 15 GM TUBE TP SCH ×2 (10:17→21:30)
[2021-01-04] MEDS: SELENIUM SULFIDE 2.5% LOTION 4 OZ. TP SCH (10:17)
[2021-01-04] MEDS: THIAMINE HCL 100 MG TABLET (FP) PO SCH (21:30)
[2021-01-04] MEDS: MELATONIN 5 MG TABLETS PO SCH (21:30)
[2021-01-05] MEDS ORDERED: PT OWN MED DRAWER 7, Y5N ONE (09:43)
[2021-01-05] MEDS: ELVITEG/COB/EMTRI/TENOF (GENVOYA) TABLET (NF) PO SCH (10:15)
[2021-01-05] MEDS: PRENATAL VITAMINS W/ FOLIC ACID TABLET (FP) PO SCH (10:15)
[2021-01-05] MEDS: FERROUS SO4 325 MG TABLET (FP) PO SCH ×2 (10:16→21:14)
[2021-01-05] MEDS: NICOTINE 7 MG/24 HOURS TOPICAL PATCH TD SCH (10:16)
[2021-01-05] MEDS: CITALOPRAM HYDROBROMIDE 10 MG TABLET PO SCH (10:16)
[2021-01-05] MEDS: HYDROCHLOROTHIAZIDE 12.5 MG CAPSULE (FP) PO SCH (10:16)
[2021-01-05] MEDS: TRIAMCINOLONE ACET 0.1% CREAM 15 GM TUBE TP SCH ×2 (10:17→21:14)
[2021-01-05] MEDS: SELENIUM SULFIDE 2.5% LOTION 4 OZ. TP SCH (10:17)
[2021-01-05] MEDS: THIAMINE HCL 100 MG TABLET (FP) PO SCH (21:14)
[2021-01-05] MEDS: MELATONIN 5 MG TABLETS PO SCH (21:14)
[2021-01-06] MEDS: ELVITEG/COB/EMTRI/TENOF (GENVOYA) TABLET (NF) PO SCH (08:17)
[2021-01-06] MEDS: PRENATAL VITAMINS W/ FOLIC ACID TABLET (FP) PO SCH (10:17)
[2021-01-06] MEDS: HYDROCHLOROTHIAZIDE 12.5 MG CAPSULE (FP) PO SCH (10:17)
[2021-01-06] MEDS: FERROUS SO4 325 MG TABLET (FP) PO SCH ×2 (10:17→21:25)
[2021-01-06] MEDS: CITALOPRAM HYDROBROMIDE 10 MG TABLET PO SCH (10:17)
[2021-01-06] MEDS: NICOTINE 7 MG/24 HOURS TOPICAL PATCH TD SCH (10:18)
[2021-01-06] MEDS: TRIAMCINOLONE ACET 0.1% CREAM 15 GM TUBE TP SCH ×2 (10:18→21:26)
[2021-01-06] MEDS: SELENIUM SULFIDE 2.5% LOTION 4 OZ. TP SCH (10:18)
[2021-01-06] MEDS: MELATONIN 5 MG TABLETS PO SCH (21:25)
[2021-01-06] MEDS: THIAMINE HCL 100 MG TABLET (FP) PO SCH (21:25)
[2021-01-07] MEDS: ELVITEG/COB/EMTRI/TENOF (GENVOYA) TABLET (NF) PO SCH (08:09)
[2021-01-07] MEDS: PRENATAL VITAMINS W/ FOLIC ACID TABLET (FP) PO SCH (10:09)
[2021-01-07] MEDS: HYDROCHLOROTHIAZIDE 12.5 MG CAPSULE (FP) PO SCH (10:10)
[2021-01-07] MEDS: ERGOCALCIFEROL (VIT D2) 50,000 UNIT (1.25 MG) CAPSULE PO SCH (10:10)
[2021-01-07] MEDS: CITALOPRAM HYDROBROMIDE 10 MG TABLET PO SCH (10:10)
[2021-01-07] MEDS: TRIAMCINOLONE ACET 0.1% CREAM 15 GM TUBE TP SCH ×2 (10:10→21:18)
[2021-01-07] MEDS: NICOTINE 7 MG/24 HOURS TOPICAL PATCH TD SCH (10:10)
[2021-01-07] MEDS: FERROUS SO4 325 MG TABLET (FP) PO SCH ×2 (10:10→21:17)
[2021-01-07] MEDS: SELENIUM SULFIDE 2.5% LOTION 4 OZ. TP SCH (10:11)
[2021-01-07] MEDS: THIAMINE HCL 100 MG TABLET (FP) PO SCH (21:17)
[2021-01-07] MEDS: MELATONIN 5 MG TABLETS PO SCH (21:17)
[2021-01-08] MEDS: ELVITEG/COB/EMTRI/TENOF (GENVOYA) TABLET (NF) PO SCH (08:45)
[2021-01-08] MEDS: FERROUS SO4 325 MG TABLET (FP) PO SCH ×2 (10:01→21:32)
[2021-01-08] MEDS: PRENATAL VITAMINS W/ FOLIC ACID TABLET (FP) PO SCH (10:01)
[2021-01-08] MEDS: NICOTINE 7 MG/24 HOURS TOPICAL PATCH TD SCH (10:01)
[2021-01-08] MEDS: HYDROCHLOROTHIAZIDE 12.5 MG CAPSULE (FP) PO SCH (10:01)
[2021-01-08] MEDS: CITALOPRAM HYDROBROMIDE 10 MG TABLET PO SCH (10:01)
[2021-01-08] MEDS: SELENIUM SULFIDE 2.5% LOTION 4 OZ. TP SCH (10:49)
[2021-01-08] MEDS: TRIAMCINOLONE ACET 0.1% CREAM 15 GM TUBE TP SCH ×2 (10:49→21:32)
[2021-01-08] MEDS: VITAMINS A AND D TOPICAL OINTMENT 60 GM TUBE TP SCH ×2 (12:08→19:32)
[2021-01-08] MEDS: THIAMINE HCL 100 MG TABLET (FP) PO SCH (21:32)
[2021-01-08] MEDS: MELATONIN 5 MG TABLETS PO SCH (21:32)
[2021-01-09] MEDS: VITAMINS A AND D TOPICAL OINTMENT 60 GM TUBE TP SCH ×5 (01:03→23:02)
[2021-01-09] MEDS: ELVITEG/COB/EMTRI/TENOF (GENVOYA) TABLET (NF) PO SCH (07:03)
[2021-01-09] MEDS: PRENATAL VITAMINS W/ FOLIC ACID TABLET (FP) PO SCH (10:00)
[2021-01-09] MEDS: CITALOPRAM HYDROBROMIDE 10 MG TABLET PO SCH (10:00)
[2021-01-09] MEDS: FERROUS SO4 325 MG TABLET (FP) PO SCH ×2 (10:01→21:19)
[2021-01-09] MEDS: TRIAMCINOLONE ACET 0.1% CREAM 15 GM TUBE TP SCH ×2 (10:01→21:19)
[2021-01-09] MEDS: NICOTINE 7 MG/24 HOURS TOPICAL PATCH TD SCH (10:01)
[2021-01-09] MEDS: HYDROCHLOROTHIAZIDE 12.5 MG CAPSULE (FP) PO SCH (10:01)
[2021-01-09] MEDS: SELENIUM SULFIDE 2.5% LOTION 4 OZ. TP SCH (10:01)
[2021-01-09] MEDS: THIAMINE HCL 100 MG TABLET (FP) PO SCH (21:19)
[2021-01-09] MEDS: MELATONIN 5 MG TABLETS PO SCH (21:20)
[2021-01-10] MEDS: VITAMINS A AND D TOPICAL OINTMENT 60 GM TUBE TP SCH ×3 (07:12→19:24)
[2021-01-10] MEDS: HYDROCHLOROTHIAZIDE 12.5 MG CAPSULE (FP) PO SCH (09:39)
[2021-01-10] MEDS: FERROUS SO4 325 MG TABLET (FP) PO SCH ×2 (09:39→21:36)
[2021-01-10] MEDS: PRENATAL VITAMINS W/ FOLIC ACID TABLET (FP) PO SCH (09:39)
[2021-01-10] MEDS: ELVITEG/COB/EMTRI/TENOF (GENVOYA) TABLET (NF) PO SCH (09:39)
[2021-01-10] MEDS: TRIAMCINOLONE ACET 0.1% CREAM 15 GM TUBE TP SCH ×2 (09:40→21:36)
[2021-01-10] MEDS: CITALOPRAM HYDROBROMIDE 10 MG TABLET PO SCH (09:40)
[2021-01-10] MEDS: NICOTINE 7 MG/24 HOURS TOPICAL PATCH TD SCH (09:40)
[2021-01-10] MEDS: SELENIUM SULFIDE 2.5% LOTION 4 OZ. TP SCH (09:40)
[2021-01-10] MEDS: MELATONIN 5 MG TABLETS PO SCH (21:36)
[2021-01-10] MEDS: THIAMINE HCL 100 MG TABLET (FP) PO SCH (21:36)
[2021-01-11] MEDS: VITAMINS A AND D TOPICAL OINTMENT 60 GM TUBE TP SCH ×4 (00:17→19:06)
[2021-01-11] MEDS: ELVITEG/COB/EMTRI/TENOF (GENVOYA) TABLET (NF) PO SCH (08:12)
[2021-01-11] MEDS: FERROUS SO4 325 MG TABLET (FP) PO SCH ×2 (10:11→21:56)
[2021-01-11] MEDS: PRENATAL VITAMINS W/ FOLIC ACID TABLET (FP) PO SCH (10:11)
[2021-01-11] MEDS: CITALOPRAM HYDROBROMIDE 10 MG TABLET PO SCH (10:11)
[2021-01-11] MEDS: HYDROCHLOROTHIAZIDE 12.5 MG CAPSULE (FP) PO SCH (10:12)
[2021-01-11] MEDS: TRIAMCINOLONE ACET 0.1% CREAM 15 GM TUBE TP SCH ×2 (10:14→21:56)
[2021-01-11] MEDS: NICOTINE 7 MG/24 HOURS TOPICAL PATCH TD SCH (10:21)
[2021-01-11] MEDS: THIAMINE HCL 100 MG TABLET (FP) PO SCH (21:56)
[2021-01-11] MEDS: MELATONIN 5 MG TABLETS PO SCH (21:56)
[2021-01-12] MEDS: VITAMINS A AND D TOPICAL OINTMENT 60 GM TUBE TP SCH ×5 (01:35→23:57)
[2021-01-12] MEDS: ELVITEG/COB/EMTRI/TENOF (GENVOYA) TABLET (NF) PO SCH (08:55)
[2021-01-12] MEDS: NICOTINE 7 MG/24 HOURS TOPICAL PATCH TD SCH (10:04)
[2021-01-12] MEDS: PRENATAL VITAMINS W/ FOLIC ACID TABLET (FP) PO SCH (10:04)
[2021-01-12] MEDS: HYDROCHLOROTHIAZIDE 12.5 MG CAPSULE (FP) PO SCH (10:04)
[2021-01-12] MEDS: TRIAMCINOLONE ACET 0.1% CREAM 15 GM TUBE TP SCH ×2 (10:04→23:12)
[2021-01-12] MEDS: CITALOPRAM HYDROBROMIDE 10 MG TABLET PO SCH (10:04)
[2021-01-12] MEDS: FERROUS SO4 325 MG TABLET (FP) PO SCH ×2 (10:04→21:31)
[2021-01-12] MEDS: SIMETHICONE 80 MG TAB.CHEW (FP) PO PRN (21:31)
[2021-01-12] MEDS: THIAMINE HCL 100 MG TABLET (FP) PO SCH (21:31)
[2021-01-12] MEDS: MELATONIN 5 MG TABLETS PO SCH (21:31)
[2021-01-13] MEDS: VITAMINS A AND D TOPICAL OINTMENT 60 GM TUBE TP SCH ×4 (06:42→23:49)
[2021-01-13] MEDS: PRENATAL VITAMINS W/ FOLIC ACID TABLET (FP) PO SCH (10:05)
[2021-01-13] MEDS: CITALOPRAM HYDROBROMIDE 10 MG TABLET PO SCH (10:05)
[2021-01-13] MEDS: FERROUS SO4 325 MG TABLET (FP) PO SCH ×2 (10:06→21:01)
[2021-01-13] MEDS: NICOTINE 7 MG/24 HOURS TOPICAL PATCH TD SCH (10:06)
[2021-01-13] MEDS: ELVITEG/COB/EMTRI/TENOF (GENVOYA) TABLET (NF) PO SCH (10:06)
[2021-01-13] MEDS: TRIAMCINOLONE ACET 0.1% CREAM 15 GM TUBE TP SCH ×2 (10:06→22:13)
[2021-01-13] MEDS: HYDROCHLOROTHIAZIDE 12.5 MG CAPSULE (FP) PO SCH (10:06)
[2021-01-13] MEDS: SIMETHICONE 80 MG TAB.CHEW (FP) PO PRN ×2 (10:06→21:01)
[2021-01-13] MEDS: MELATONIN 5 MG TABLETS PO SCH (21:01)
[2021-01-13] MEDS: THIAMINE HCL 100 MG TABLET (FP) PO SCH (21:01)
[2021-01-14] MEDS: VITAMINS A AND D TOPICAL OINTMENT 60 GM TUBE TP SCH ×4 (06:49→23:28)
[2021-01-14] MEDS: PRENATAL VITAMINS W/ FOLIC ACID TABLET (FP) PO SCH (09:46)
[2021-01-14] MEDS: ELVITEG/COB/EMTRI/TENOF (GENVOYA) TABLET (NF) PO SCH (09:46)
[2021-01-14] MEDS: HYDROCHLOROTHIAZIDE 12.5 MG CAPSULE (FP) PO SCH (09:46)
[2021-01-14] MEDS: TRIAMCINOLONE ACET 0.1% CREAM 15 GM TUBE TP SCH ×2 (09:47→21:28)
[2021-01-14] MEDS: NICOTINE 7 MG/24 HOURS TOPICAL PATCH TD SCH (09:47)
[2021-01-14] MEDS: ERGOCALCIFEROL (VIT D2) 50,000 UNIT (1.25 MG) CAPSULE PO SCH (09:47)
[2021-01-14] MEDS: FERROUS SO4 325 MG TABLET (FP) PO SCH ×2 (09:47→21:27)
[2021-01-14] MEDS: SIMETHICONE 80 MG TAB.CHEW (FP) PO PRN ×2 (09:47→21:27)
[2021-01-14] MEDS: CITALOPRAM HYDROBROMIDE 10 MG TABLET PO SCH (09:47)
[2021-01-14] MEDS: MELATONIN 5 MG TABLETS PO SCH (21:27)
[2021-01-14] MEDS: THIAMINE HCL 100 MG TABLET (FP) PO SCH (21:27)
[2021-01-15] MEDS: VITAMINS A AND D TOPICAL OINTMENT 60 GM TUBE TP SCH ×3 (07:12→17:11)
[2021-01-15] MEDS: ELVITEG/COB/EMTRI/TENOF (GENVOYA) TABLET (NF) PO SCH (08:58)
[2021-01-15] MEDS ORDERED: PT OWN MED DRAWER 7, Y5N ONE ×2 (09:00→09:59)
[2021-01-15] MEDS: PRENATAL VITAMINS W/ FOLIC ACID TABLET (FP) PO SCH (09:58)
[2021-01-15] MEDS: FERROUS SO4 325 MG TABLET (FP) PO SCH ×2 (09:58→21:14)
[2021-01-15] MEDS: CITALOPRAM HYDROBROMIDE 10 MG TABLET PO SCH (09:58)
[2021-01-15] MEDS: HYDROCHLOROTHIAZIDE 12.5 MG CAPSULE (FP) PO SCH (09:58)
[2021-01-15] MEDS: SIMETHICONE 80 MG TAB.CHEW (FP) PO PRN (10:00)
[2021-01-15] MEDS: SELENIUM SULFIDE 2.5% LOTION 4 OZ. TP SCH (10:20)
[2021-01-15] MEDS: TRIAMCINOLONE ACET 0.1% CREAM 15 GM TUBE TP SCH ×2 (10:20→21:14)
[2021-01-15] MEDS: NICOTINE 7 MG/24 HOURS TOPICAL PATCH TD SCH (10:20)
[2021-01-15] MEDS: THIAMINE HCL 100 MG TABLET (FP) PO SCH (21:14)
[2021-01-15] MEDS: MELATONIN 5 MG TABLETS PO SCH (21:14)
[2021-01-16] MEDS: VITAMINS A AND D TOPICAL OINTMENT 60 GM TUBE TP SCH ×3 (01:12→12:37)
[2021-01-16] MEDS ORDERED: PT OWN MED DRAWER 7, Y5N ONE ×2 (03:52→13:51)
[2021-01-16 08:38] VITALS: TEMP 97.7
[2021-01-16] MEDS: ELVITEG/COB/EMTRI/TENOF (GENVOYA) TABLET (NF) PO SCH (08:50)
[2021-01-16] MEDS: PRENATAL VITAMINS W/ FOLIC ACID TABLET (FP) PO SCH (10:08)
[2021-01-16] MEDS: CITALOPRAM HYDROBROMIDE 10 MG TABLET PO SCH (10:08)
[2021-01-16] MEDS: FERROUS SO4 325 MG TABLET (FP) PO SCH (10:08)
[2021-01-16] MEDS: HYDROCHLOROTHIAZIDE 12.5 MG CAPSULE (FP) PO SCH (10:08)
[2021-01-16] MEDS: TRIAMCINOLONE ACET 0.1% CREAM 15 GM TUBE TP SCH (10:09)
[2021-01-16] MEDS: SELENIUM SULFIDE 2.5% LOTION 4 OZ. TP SCH (10:09)
[2021-01-16] MEDS: NICOTINE 7 MG/24 HOURS TOPICAL PATCH TD SCH (10:10)
[2021-01-16] MEDS: SIMETHICONE 80 MG TAB.CHEW (FP) PO PRN (10:10)
[2021-01-16 10:24] VITALS: BP 134/74; PULSE 84
== END 2021-01-16 14:00 | disposition home or self-care (01) | DRG 772 ==
LOC: YASAS 12:18 → Y3W 12:22
PROVIDERS: ADMIT Allergy & Immunology; ATTEND Allergy & Immunology
PROC: HZ42ZZZ Group Counseling for Substance Abuse Treatment, Cognitive-Behavioral (ICD-10-PCS; principal; 2020-12-22)
DX: F10.20 Alcohol dependence, uncomplicated (principal); F14.20 Cocaine dependence, uncomplicated; F17.210 Nicotine dependence, cigarettes, uncomplicated; F32.9 Major depressive disorder, single episode, unspecified; F41.9 Anxiety disorder, unspecified; Z21 Asymptomatic human immunodeficiency virus [HIV] infection status; D64.9 Anemia, unspecified; L98.8 Other specified disorders of the skin and subcutaneous tissue
CPT/HCPCS: 36415; 81003; 85025